=== PATIENT | female | born 1945 | race Caucasian/White ===

== ENCOUNTER 2023-03-14 09:33 | Emergency (ER) | payer MEDICARE, BC, SELFPAY ==
--- NOTE | 2023-03-14 09:48 | ED.GENADULT ---
HPI - General Adult General Time Seen by Provider: 09:48 Date Seen: 03/14/23 Chief complaint: Extremity Pain/Injury, Lower Stated complaint: left leg pain Time Seen by Provider: 03/14/23 09:35 History of Present Illness HPI narrative: This is a pleasant 77-year-old female who is accompanied to the ER today by her daughter. Patient does have some dementia so her daughter supplements a lot of her history. Patient has a history of dementia and depression. She is on medications for those but has no other medical conditions. She does not take any blood thinners or blood pressure medications or cholesterol meds. She does know that she has osteoarthritis. She has been following with her primary care doctor and orthopedist for knee pain. She had x-rays recently that showed, ?[id number]? in her knee. She has been told she is not a candidate for knee replacement. She has an appointment with her doctor in 4 days, on Thursday to have a cortisone injection into her left knee because it has been hurting her recently. Since yesterday her left knee has been hurting more than normal. It has been hurting her to walk on it. It is not clear why her knee has gotten worse. No trauma. No new activity. No twisting. No fall. The knee is not swollen. No redness. No fever or chills. No pain proximally in the femur, quadriceps, hamstrings, or thigh. No pain distally in the tibia, sheridan, gastrocnemius, or calf. Ankle and foot are normal. She has not noticed any discoloration or pallor or her leg. She has no history of DVT or PE. She has not been taking any medications for her knee pain. And not understanding why her knee got worse, her daughter brought her to the ER this morning just to get her looked at to make sure it was not something bad like a blood clot. No suspicion for fracture or fall. Related Data Allergies Allergy/AdvReac Type Severity Reaction Status Date / Time No Known Drug Allergies Allergy Verified 03/14/23 09:54 Exam Narrative: Exam Narrative: Constitutional: Appears well-developed and well-nourished. Alert. Conversant. Non toxic. HENT: Head: Atraumatic. Nose: Nose normal. Mouth/Throat: Oral mucosa is clear and moist. no trismus. Pharynx normal. Tonsils symmetric. No tonsillar enlargement, erythema, or exudate. Eyes: Conjunctivae normal. EOM normal. Pupils equal, round, and reactive to light. No scleral icterus. Neck: Normal range of motion. Neck supple. No tracheal deviation present. Cardiovascular: Normal rate, regular rhythm. Symmetric DP and PT artery pulses . Normal brisk distal capillary refill. Feet are pink. No signs of limb ischemia. Pulmonary/Chest: Effort normal. No stridor. No respiratory distress. Musculoskeletal: RUE: Normal range of motion. No tenderness. No deformity LUE: Normal range of motion. No tenderness. No deformity RLE: Normal range of motion. No edema. No tenderness. No deformity LLE: In her hip. Hip nontender. Pelvis stable. Femur nontender. Quadriceps nontender. Normal muscle mass. Hamstring and posterior thigh nontender. Normal mass. Knee: She does not have any appreciable knee joint effusion. No redness or warmth. She is mildly tender over the medial and lateral joint line. Patella nontender. No bony crepitus or deformity. Range of motion is from full extension to about 45? of flexion, limited by pain. Ligamentous exam is negative for laxity of the ACL, PCL, MCL, LCL. No locking or clicking within her range of motion. No tenderness over the proximal fibula, proximal tibia. Tibial spine and sheridan nontender. Gastrocnemius and calf and Achilles are nontender. No swelling or edema. No bruising. Normal range of motion her ankle. Ankle and foot are nontender. Neurological: Alert and oriented to person, place, and time. She is a poor historian, which is her baseline for dementia. Normal strength. CN II-VII intact. No sensory deficit. GCS eye subscore is 4. GCS verbal subscore is 5. GCS motor subscore is 6. Normal coordination Skin: Skin is warm and dry. No rash noted. No pallor. Normal capillary refill. Psychiatric: Normal mood. Normal affect. Const: Vital Signs, click to edit/add: Vital Signs - 24 hr 03/14/23 09:54 Temperature 97.5 F L Pulse Rate [Pulse Oximeter] 97 Respiratory Rate 18 Blood Pressure [Ri ght Upper Arm] 131/68 Pulse Oximetry 98 Oxygen Delivery Me thod Room Air Course Vital Signs Vital signs: Initial Vital Signs Temperature 97.5 F L 03/14/23 09:54 Temperature Source Temporal Artery Scan 03/14/23 09:54 Pulse Rate 97 03/14/23 09:54 Respiratory Rate 18 03/14/23 09:54 Blood Pressure 131/68 03/14/23 09:54 Blood Pressure Mean 89 03/14/23 09:54 Pulse Oximetry 98 03/14/23 09:54 Oxygen Delivery Method Room Air 03/14/23 09:54 Vital Signs Temperature 97.5 F L 03/14/23 09:54 Pulse Rate 97 03/14/23 09:54 Respiratory Rate 18 03/14/23 09:54 Blood Pressure 131/68 03/14/23 09:54 Pulse Oximetry 98 03/14/23 09:54 Oxygen Delivery Method Room Air 03/14/23 09:54 Temperature 97.5 F L 03/14/23 09:54 Pulse Rate 97 03/14/23 09:54 Respiratory Rate 18 03/14/23 09:54 Blood Pressure 131/68 03/14/23 09:54 Pulse Oximetry 98 03/14/23 09:54 Oxygen Delivery Method Room Air 03/14/23 09:54 Medical Decision Making MDM Narrative Medical decision making narrative: This is a pleasant 77-year-old female presenting to the ER today for left knee pain. She has had known left knee pain for some time and x-rays have shown, ?bone on bone? which presumably meet osteoarthritis. She is not a candidate for knee replacement. She is actually going to be having a cortisone injection into her left knee in a couple of days. However her left kneecap pain became worse than normal yesterday so she is here in the ER this morning. Daughter was concerned about possible blood clot. There is no exam evidence for any swelling or ecchymosis to suggest DVT. She really has pain isolated only to her knee, not to the calf or ankle or thigh. I do not think clinically that there is a DVT. I feel that ultrasound is on necessary in this case. Differential is broad. Consider acute limb ischemia as a cause for her abrupt change in symptoms. However she has strong pulses normal cap refill and no signs of any vascular compromise. No radicular pattern to her pain to suggest low back problem. No recent trauma or fall or twisting to suggest the presence of a new acute fracture. She recently had x-rays that showed arthritis but no fracture. We discussed possibly getting repeat x-rays, but we decided to hold off given the very low likelihood of any acute change or acute fracture. There is no evidence for any ligamentous laxity. No redness or warmth of the knee joint to suggest septic arthritis. There is really no effusion at all to suggest other forms of arthritis such as gout. There is no effusion that would be amenable to arthrocentesis to relieve pain. We are not able to perform cortisone injections to the knee here in the ER. She will follow up with her doctor on Thursday to get that completed. She has not been taking anything for pain control at home In terms of managing the pain acutely until she can follow-up we discussed options. We used shared decision making. Plan of care will be to use Tylenol 1000 mg 3 times daily and supplement with ibuprofen 600 mg q.6 hours p.r.n.. Discussed the risks of ibuprofen use including renal insufficiency and peptic ulcer disease. We will hold off on opiate pain killers for now due to the risk of side effects such as drowsiness, falls, delirium. Discharge Plan Discharge Clinical Impression: Acute pain of left knee Patient Disposition: Home, Self-Care Condition: Stable Instructions: Knee Pain (ED), Arthralgia (ED) Additional Instructions: As we discussed, please come back to the ER right away if you have any concerns-especially if she has worsening pain, increasing swelling, redness or warmth of the knee, fever, or spreading pain throughout her leg. To manage her pain, use Tylenol 1000 mg 3 times daily as needed. For pain uncontrolled by Tylenol, add ibuprofen 600 mg every 6 hours as needed. Please follow-up with her doctors on Thursday for recheck and steroid injection. Follow Up/Referrals: Shaina Perry MD [Primary Care Provider] - Stand Alone Forms: [facility] Info Instructions
[2023-03-14 09:54] VITALS: BP 131/68; PULSE 97; RESP 18; TEMP 36.4; O2SAT 98; BMI 21.5
== END 2023-03-14 10:37 | disposition home or self-care (01) ==
PROVIDERS: Emergency Provider Emergency Medicine; PCP Family Medicine
DX: M25.562 Pain in left knee (principal)
CPT/HCPCS: 99283

== ENCOUNTER 2023-07-20 20:06 | Observation (INO) | payer MEDICARE, BC, SELFPAY ==
[2023-07-20] VITALS (7 sets, daily range): BP systolic 172–189; BP diastolic 104–111; PULSE 89–98; RESP 18–20; TEMP 36.6; O2SAT 97–98
--- NOTE | 2023-07-20 21:03 | ED_ITS ---
HPI - Weakness General Time Seen by Provider: 21:03 Date Seen: 07/20/23 Chief complaint: Weakness Stated complaint: weak Time Seen by Provider: 07/20/23 21:03 Source: patient, RN notes reviewed and old records reviewed Mode of arrival: ambulatory Limitations: no limitations History of Present Illness HPI Narrative: 78-year-old female who comes in today with feeling like she is going to fall over. This started this afternoon. She denies headache, double vision, numbness or tingling the arms legs, weakness. She says when she stands up she just feels off balance. She does not use any assistive device to ambulate. She denies any fall or head injury. Denies any recent medication changes. No cough, runny nose, fever, chills, abdominal pain. No neck pain or back pain. Denies urinary symptoms. Related Data Home Medications Medication Instructions Recorded Confirmed amoxapine 150 mg tablet 150 mg PO QPM 07/20/23 07/20/23 bupropion HCl 100 mg tablet,12 hr 100 mg PO BID 07/20/23 07/20/23 sustained-release cholecalciferol (vitamin D3) 25 25 mcg PO DAILY 07/20/23 07/20/23 mcg (1,000 unit) tablet dextromethorphan HBr 15 mg capsule 45 mg PO BID 07/20/23 07/20/23 mirtazapine 15 mg tablet 7.5 mg PO QPM PRN insomnia 07/20/23 07/20/23 rivastigmine tartrate 3 mg capsule 3 mg PO BID 07/20/23 07/20/23 Allergies Allergy/AdvReac Type Severity Reaction Status Date / Time No Known Drug Allergies Allergy Verified 03/14/23 09:54 PFSH PFS Social History Smoking Status: Unknown if ever smoked Exam Narrative: Exam Narrative: General: Well-developed and well-nourished, no acute distress Head: Atraumatic and normocephalic Eyes: Pupils are equal reactive, extraocular motions intact, conjunctiva clear ENT: External nose and ears are normal, posterior pharynx without erythema or exudate Neck: No midline cervical tenderness, full spontaneous range of motion the neck, trachea midline, no adenopathy Heart: Regular rate and rhythm no murmurs or thrills Lungs: Clear to auscultation bilaterally without wheezes or crackles Abdomen: Soft, nontender, nondistended with active bowel sounds Musculoskeletal: No tenderness, deformity, or edema Neurologic: Awake, alert, and oriented x3, no gross focal neurologic deficits, cranial nerves intact as tested. When it standing at the bedside, patient stands stable with no swaying but says she feels like she is going to fall over Psych: Mood and affect are appropriate Skin: No rashes Const: Vital Signs, click to edit/add: Vital Signs - 24 hr 07/20/23 20:38 07/20/23 21:53 07/20/23 21:54 Temperature 98 F Pulse Rate 94 92 Pulse Rate [Pulse Oximeter] 98 Respiratory Rate 20 Blood Pressure 183/104 H Blood Pressure [Le ft Upper Arm] 172/111 H Pulse Oximetry 98 97 97 Oxygen Delivery Me thod Room Air Room Air 07/20/23 21:55 07/20/23 22:00 07/20/23 22:01 Temperature Pulse Rate 94 89 92 Pulse Rate [Pulse Oximeter] Respiratory Rate Blood Pressure 185/104 H Blood Pressure [Le ft Upper Arm] Pulse Oximetry 97 98 98 Oxygen Delivery In thod Course Course ED Course: Patient seen and examined, prior records are reviewed. Patient presents today with feeling off balance this afternoon. On exam she has no focal neurologic deficits, no decreased sensation of the upper lower extremities, no facial droop or facial asymmetry. Standing at the side of the bed she appears steady but says she feels off balance, did not ambulate the patient due to this sensation of disequilibrium. Labs are ordered along with CTA of the head neck although large vessel occlusion is clinically unlikely. Reevaluation(s) Time of Reevaluation #1: 22:21 Reevaluation #1: Labs ordered and independently interpreted by me with normal basic metabolic panel, negative troponin, normal magnesium. Urinalysis and CT scans are pending. Time of Reevaluation #2: 22:56 Reevaluation #2: Chest x-ray and panel interpreted by me with mild cardiomegaly but no acute infiltrate or effusion. CTA of the head neck shows moderate narrowing at the right P2 P3 [employer] junction, no acute findings otherwise. Time of Reevaluation #3: 23:24 Reevaluation #3: Urinalysis independently interpreted by me consistent with infection, although contaminated with moderate squamous cells. No prior culture to guide therapy, Rocephin IV is ordered. This may be contributing to patient's feeling of being off balance, however with narrowing of the P2 and P3 segments on CT as well as disequilibrium, concern for possible TA or acute CVA as well. Discussed disposition with the patient. At this point, patient may have a small stroke that will need further evaluation treatment, possibly related to narrowing of the P2 P3, and need to undergo MRI in the morning. This could conceivably done as an outpatient as well, however patient feels too off-balance to go home tonight and so will be admitted. Care was discussed with tele hospitalist service, recommends against Rocephin for now is urine is quite contaminated. Patient will given aspirin in the emergency department for possible acute CVA. 11:43 p.m. Rocephin IV already given for urinary tract infection Vital Signs Vital signs: Initial Vital Signs Temperature 98 F 07/20/23 20:38 Temperature Source Temporal Artery Scan 07/20/23 20:38 Pulse Rate 98 07/20/23 20:38 Respiratory Rate 20 07/20/23 20:38 Blood Pressure 172/111 H 07/20/23 20:38 Blood Pressure Mean 131 H 07/20/23 20:38 Blood Pressure Position Sitting 07/20/23 20:38 Pulse Oximetry 98 07/20/23 20:38 Oxygen Delivery Method Room Air 07/20/23 20:38 Vital Signs Temperature 98 F 07/20/23 20:38 Pulse Rate 98 07/20/23 20:38 Respiratory Rate 20 07/20/23 20:38 Blood Pressure 172/111 H 07/20/23 20:38 Pulse Oximetry 98 07/20/23 20:38 Oxygen Delivery Method Room Air 07/20/23 20:38 Temperature 98 F 07/20/23 20:38 Pulse Rate 92 07/20/23 22:01 Respiratory Rate 20 07/20/23 20:38 Blood Pressure 185/104 H 07/20/23 22:01 Pulse Oximetry 98 07/20/23 22:01 Oxygen Delivery Method Room Air 07/20/23 21:53 Medications Administered Medications: Discontinued Medications Generic Name Dose Route Start Last Admin Trade Name Freq PRN Reason Stop Dose Admin Ceftriaxone Sodium 1 gm/ 100 mls @ 200 mls/hr 07/20/23 23:28 07/20/23 23:32 Sodium Chloride IVPB 07/20/23 23:29 200 mls/hr ONCE ONE Administration MDM - Weakness Lab Data Labs: Lab Results 07/20/23 07/20/23 Range/Units 21:25 23:00 WBC 6.14 (4.50-11.00) K/uL RBC 4.62 (4.00-5.20) m/uL Hgb 14.3 (12.0-16.0) gm/dL Hct 44.0 (33.0-51.0) % MCV 95 (80-100) fL MCH 31 (26-34) pg MCHC 33 (32-36) gm/dL RDW Coeff of Anu 12.3 (11.5-15.5) % Plt Count 272 (140-440) K/uL Neut % (Auto) 67.8 (42.0-72.0) % Lymph % (Auto) 20.4 (20-44) % [place] % (Auto) 9.3 (0.0-11.0) % Eos % (Auto) 1.1 (0.0-7.0) % Baso % (Auto) 0.7 (0.0-3.0) % Neut # (Auto) 4.17 (1.7-7.0) K/uL Lymph # (Auto) 1.25 (0.90-2.90) K/uL [place] # (Auto) 0.60 (0.00-0.90) K/UL Eos # (Auto) 0.07 (0.00-0.50) K/uL Baso # (Auto) 0.04 (0.00-0.30) K/uL Abs Immat Gran (auto) 0.04 (0.00-0.30) K/uL Imm/Tot Granulo (auto) 0.7 % Sodium 138 (135-149) mmol/L Potassium 4.1 (3.6-5.1) mmol/L Chloride 105 (96-114) mmol/L Carbon Dioxide 29 (20-32) mmol/L Anion Gap 4 L (7-15) mEq/L BUN 31 H (7-30) mg/dL Creatinine 0.7 (0.5-1.5) mg/dL Estimated GFR 87 ml/min Glucose 128 H (60-115) mg/dL Calcium 9.8 (8.4-10.6) mg/dL Magnesium 2.0 (1.5-2.6) mg/dL NT-Pro-B Natriuret Pep 181 pg/mL Urine Color Yellow (Yellow) Urine Appearance Clear (Clear) Urine pH 7.5 (5.0-8.5) Ur Specific [place] 1.015 (1.000-1.030) Urine Protein Negative (Negative) Urine Glucose (UA) Negative (Negative) Urine Ketones Negative (Negative) Urine Blood Trace-intact A (Negative) Urine Nitrite Negative (Negative) Urine Bilirubin Negative (Negative) Urine Urobilinogen 0.2 (0.2-1.0) Ur Leukocyte Esterase 2+ A (Negative) Urine RBC 0-2 (0-2) Urine WBC 10-25 A (0-5) Ur Squamous Epith Cells Moderate A (None-Few) Urine Bacteria Moderate A (None) Lab Acknowledgement Test Added POC Troponin I 0.00 L (0.01-0.04) ng/ml ECG Data Attestation: I personally reviewed and interpreted this ECG as follows: ECG interpretation date: 07/20/23 ECG interpretation time: 21:33 Prior ECG tracings: not available for review Interpretation: Normal sinus rhythm rate 94, incomplete right bundle-branch block, IN 190, QTC 42, normal axis, no prior for comparison. Discharge Plan Discharge Clinical Impression: Dysequilibrium, Acute urinary tract infection, Stroke-like symptom Patient Disposition: Admitted As Observation Activity Level: Up with assist
--- NOTE | 2023-07-20 21:18 | XR_ITS ---
Final Report Patient: JULIA CHAKRABORTY Facility:?[facility] Patient ID:?[id number] Site Patient ID:?[id number] Site :?1945 Study:?XRay Chest 2 VIEW-07/20/2023 10:38:26 PM Ordering Physician:ROBERTO Final Report: Indication: Weakness Technique: Two views of the chest Comparison: None Findings/Impression: Mild prominence of central and peripheral vascular markings and mild cardiomegaly, may represent a high-volume state. No other acute cardiopulmonary process detected. Dictated by Vitaly Samson MD @ 07/20/2023 10:42:03 PM (Electronic Signature)
--- NOTE | 2023-07-20 21:18 | CT_ITS ---
Final Report Patient: JULIA CHAKRABORTY Facility:?[facility] Patient ID:?[id number] Site Patient ID:?[id number]. Site :?1945 Study:?CT Head Angio CTA HEAD W/ISOVUE 370 95CC-07/20/2023 10:38:19 PM Ordering Physician:ROBERTO Final Report: INDICATION: Acute stroke, dysequilibrium. TECHNIQUE: CTA head with contrast bolus tracking, 3D angiographic rendering using maximum intensity projection (MIP) and images permanently archived. FINDINGS: There is scattered intracranial atherosclerotic disease. There is normal opacification of the intracranial vasculature. There is no large vessel occlusion. No aneurysm is identified. IMPRESSION: No large vessel occlusion. Please note that all CT scans at this facility use dose modulation, iterative reconstruction, and/or weight-based dosing when appropriate to reduce radiation dose to as low as reasonably achievable. Dictated by Sid Lopez MD @ 07/21/2023 11:31:53 AM (Electronic Signature)
--- NOTE | 2023-07-20 21:18 | CT_ITS ---
Final Report Patient: JULIA CHAKRABORTY Facility:?[facility] Patient ID:?[id number] Site Patient ID:?[id number]. Site :?1945 Study:?CT Neck Angio CTA NECK W/ISOVUE 370 95CC-07/20/2023 10:38:49 PM Ordering Physician:ROBERTO Final Report: INDICATION: Acute stroke, dysequilibrium. TECHNIQUE: CTA neck with contrast bolus tracking, 3D angiographic rendering using maximum intensity projection (MIP) and images permanently archived. FINDINGS: There is minor carotid atherosclerosis. There is no significant carotid artery stenosis or dissection. There is no significant vertebral artery stenosis or dissection. The soft tissues of the neck are within normal limits. Advanced degenerative changes are noted in the cervical spine. IMPRESSION: No significant carotid or vertebral artery stenosis or dissection. Please note that all CT scans at this facility use dose modulation, iterative reconstruction, and/or weight-based dosing when appropriate to reduce radiation dose to as low as reasonably achievable. Dictated by Sid Lopez MD @ 07/21/2023 11:33:37 AM (Electronic Signature)
[2023-07-20 22:00] LABS: Chloride* 105 mmol/L (96-114)
[2023-07-20 22:01] LABS: Potassium* 4.1 mmol/L (3.6-5.1); Sodium* 138 mmol/L (135-149)
[2023-07-20 22:03] LABS: Creatinine* 0.7 mg/dL (0.5-1.5); Estimated Glomerular Filt Rate 87 ml/min
[2023-07-20 22:04] LABS: Anion Gap 4 mEq/L (7-15); Blood Urea Nitrogen* 31 mg/dL (7-30); Calcium* 9.8 mg/dL (8.4-10.6); Carbon Dioxide* 29 mmol/L (20-32); Glucose* 128 mg/dL (60-115)
[2023-07-20 22:55] LABS: Basophils Absolute Auto 0.04 K/uL (0.00-0.30); Basophils Percent Auto 0.7 % (0.0-3.0); Eosinophils Absolute Auto 0.07 K/uL (0.00-0.50); Eosinophils Percent Auto 1.1 % (0.0-7.0); Hemoglobin* 14.3 gm/dL (12.0-16.0); Immature Granulocytes Abs Auto 0.04 K/uL (0.00-0.30); Immature Granulocytes Pct Auto 0.7 %; Lymphocytes Absolute Auto 1.25 K/uL (0.90-2.90); Lymphocytes Percent Auto 20.4 % (20-44); Mean Corpuscular HGB Conc 33 gm/dL (32-36); Mean Corpuscular Hemoglobin 31 pg (26-34); Mean Corpuscular Volume 95 fL (80-100); Monocytes Percent Auto 9.3 % (0.0-11.0); Neutrophils Absolute Auto 4.17 K/uL (1.7-7.0); Neutrophils Percent Auto 67.8 % (42.0-72.0); Platelet Count* 272 K/uL (140-440); RDW Coefficient of Variation % 12.3 % (11.5-15.5); Red Blood Count 4.62 m/uL (4.00-5.20); Slide Review Reflex No; White Blood Count* 6.14 K/uL (4.50-11.00)
[2023-07-20 23:10] LABS: Appearance Urine Clear (Clear); Bilirubin Urine Negative (Negative); Blood Urine Trace-intact (Negative); Color Urine Yellow (Yellow); Glucose Urine Negative (Negative); Ketones Urine Negative (Negative); Leukocyte Esterase Urine 2+ (Negative); Nitrite Urine Negative (Negative); Protein Urine Negative (Negative); Specific Gravity Urine 1.015 (1.000-1.030); Urobilinogen Urine 0.2 (0.2-1.0); pH Urine 7.5 (5.0-8.5)
[2023-07-20 23:11] LABS: NT Pro B Type NatriureticPept* 181 pg/mL
[2023-07-20 23:22] LABS: Bacteria Urine Moderate; RBC Urine 0-2 (0-2); Squamous Epithelial Cell Urine Moderate (None-Few)
[2023-07-20] MEDS: cefTRIAXone 1 GM in 0.9 % SODIUM CHLORIDE Mini-bag 100 ML IVPB (23:32)
[2023-07-20] MEDS: ASPIRIN 81 MG TAB.CHEW 324 MG PO (23:47)
[2023-07-21] VITALS (10 sets, daily range): BP systolic 149–191; BP diastolic 85–112; PULSE 64–112; RESP 18; TEMP 36.2–37.3; O2SAT 96–99
--- NOTE | 2023-07-21 02:09 | W.PM.TELEH&P ---
Telehealth- H&P: HPI History of Present Illness Date Seen: 07/21/23 Chief complaint: weak Narrative: Tameka Scott is seen as an Interactive Telehealth visit. Tameka Scott is a 78 year old female who is seen in her hospital room at [facility]. She is seen with the assistance of nursing staff. She has been admitted through the emergency room. Her daughter is present during the interview and exam. She tells me yesterday today she felt okay. She got up this morning. She was up for a bit and had a sudden onset of dizziness when she would get up and try to ambulate. She felt like she was going to fall over. She denied headache double vision numbness tingling weakness in an arm. Otherwise she denied headache fever chills chest pain shortness of breath abdominal pain blood in the urine blood in the stool. She denies any urinary symptoms no frequency urgency. She was evaluated in the emergency room was found to have a difficult time ambulating. CT scan of the head was performed which did not show any acute findings but possible narrowing at P2 and P3 segments. Patient did not feel comfortable going home with her increasing dizziness while sitting or standing upright. She has now been admitted for further evaluation and treatment. While she is laying in bed she feels fine. She does become dizzy when she sits upright in bed. There are again no urinary symptoms. Review of Systems Narrative: A complete review of systems was performed positive pertinent and negatives in the history of present illness. [facility] Medical History (Updated 07/21/23 @ 02:27 by Yonis Harvey DO) Dementia ?F03.90 - Unspecified dementia, unspecified severity, without behavioral disturbance, psychotic disturbance, mood disturbance, and anxiety (ICD-10) Depression ?F32.A - Depression, unspecified (ICD-10) Anxiety ?F41.9 - Anxiety disorder, unspecified (ICD-10) Surgical History (Updated 07/21/23 @ 02:08 by Yonis Harvey DO) H/O sinus surgery ?Z98.890 - Other specified postprocedural states (ICD-10) History of tonsillectomy ?Z90.89 - Acquired absence of other organs (ICD-10) Social History Smoking Status: Unknown if ever smoked Meds Home Medications and Allergies Home Medications Medication Instructions Recorded Confirmed Type amoxapine 150 mg tablet 150 mg PO QPM 07/20/23 07/20/23 History bupropion HCl 100 mg tablet,12 hr 100 mg PO BID 07/20/23 07/20/23 History sustained-release cholecalciferol (vitamin D3) 25 25 mcg PO DAILY 07/20/23 07/20/23 History mcg (1,000 unit) tablet dextromethorphan HBr 15 mg capsule 45 mg PO BID 07/20/23 07/20/23 History mirtazapine 15 mg tablet 7.5 mg PO QPM PRN insomnia 07/20/23 07/20/23 History rivastigmine tartrate 3 mg capsule 3 mg PO BID 07/20/23 07/20/23 History Allergies Allergy/AdvReac Type Severity Reaction Status Date / Time No Known Drug Allergies Allergy Verified 03/14/23 09:54 Exam Narrative Exam Narrative: Physical Exam GENERAL: ?vital signs reviewed, well developed and nourished, in no distress HEENT: pupils are equal round and reactive to light, extraocular movements are grossly within normal limits and oral mucosa is moist. NECK: Supple without lymphadenopathy or thyromegaly according to nursing staff examination observation HEART: Regular rate and rhythm without any rubs, murmurs, or gallops. LUNGS: Clear to auscultation bilaterally with good air movement throughout ABDOMEN: Observation from nurse assisted exam, abdomen appears soft, nontender, and nondistended with Positive bowel sounds noted. EXTREMITIES: Strength and sensation is observed to be grossly within normal limits in the upper and lower extremities.? No focal strength deficit is observed. SKIN:? Observed warm and dry with color normal Const Vital Signs, click to edit/add: Vital Signs - 24 hr 07/20/23 20:38 07/20/23 21:53 07/20/23 21:54 Temperature 98 F Pulse Rate 94 92 Pulse Rate [Pulse Oximeter] 98 Respiratory Rate 20 Blood Pressure 183/104 H Blood Pressure [Left Upper Arm] 172/111 H Pulse Oximetry 98 97 97 Oxygen Delivery Method Room Air Room Air 07/20/23 21:55 07/20/23 22:00 07/20/23 22:01 Temperature Pulse Rate 94 89 92 Pulse Rate [Pulse Oximeter] Respiratory Rate Blood Pressure 185/104 H Blood Pressure [Left Upper Arm] Pulse Oximetry 97 98 98 Oxygen Delivery Method 07/20/23 23:32 Temperature Pulse Rate 93 Pulse Rate [Pulse Oximeter] Respiratory Rate 18 Blood Pressure 189/108 H Blood Pressure [Left Upper Arm] Pulse Oximetry 98 Oxygen Delivery Method Hospitalist - H&P: Result Labs Labs: Short CBC 07/20/23 Range/Units 21:25 WBC 6.14 (4.50-11.00) K/uL Hgb 14.3 (12.0-16.0) gm/dL Hct 44.0 (33.0-51.0) % Plt Count 272 (140-440) K/uL BMP 07/20/23 21:25 Sodium 138 Potassium 4.1 Chloride 105 Carbon Dioxide 29 BUN 31 H Creatinine 0.7 Glucose 128 H Calcium 9.8 Urine 07/20/23 Range/Units 23:00 Urine Color Yellow (Yellow) Urine Appearance Clear (Clear) Urine pH 7.5 (5.0-8.5) Ur Specific [place] 1.015 (1.000-1.030) Urine Protein Negative (Negative) Urine Glucose (UA) Negative (Negative) ECG Interpretation: Twelve-lead EKG shows normal sinus rhythm 94 bpm no blocks no ST elevations or depressions normal axis no acute findings. Assessment and Plan Assessment and plan (1) Stroke-like symptom: Status: Acute (2) Dysequilibrium: Status: Acute (3) HTN (hypertension): Status: Acute (4) Acute urinary tract infection: Status: Acute (5) Implantable loop recorder present: Status: Acute (6) Dementia: Status: Acute (7) Depression: Status: Acute Plan disequilibrium strokelike symptoms?suspect BPPV as patient is fine lying flat gets worse sitting upright. She does seem to have some left beating nystagmus very difficult to tell overall. Certainly could be a posterior CVA for tonight we will keep her on aspirin. Will plan for an MRI in the morning if her loop recorder is able to go through an MRI machine. This will need to be reviewed. Will have her see physical therapy. Otherwise ongoing secondary prevention she can follow-up with her abnormal CT scan as an outpatient. Hypertension?patient with fairly elevated blood pressures. Will use permissive hypertension with a systolic less than 105 will continue to observe. In case this is an acute CVA. If her blood pressure is remains elevated consider IV hydralazine. Patient with an initial urine which looks potentially infected her symptoms are not really consistent with a urinary tract infection and it is a markedly contaminated specimen with squamous epithelial cells. Between her being completely asymptomatic we will repeat a UA. But at this point I do not feel inclined to treat. Implantable loop recorder present on. Will need to see if MRI compatible. Dementia, depression, anxiety?patient's home medications will need to be reviewed. I did look at them this evening I do not think there is a need to that need to be continued will wait for pharmacy to reconcile in the morning. DVT prophylaxis will use subcutaneous Lovenox. CODE STATUS was reviewed on admission patient wishes to be a full code. Yonis Harvey DO, Pharm. D. Telehealth: Statement Statement Telehealth Visit: Today's History and Physical is provided via interactive telehealth by Yonis Harvey DO.? Patient is located at [facility].? Provider is located at [facility].? Nursing staff assisted with the patient's exam. The visit being done today meets criteria for a telehealth visit and the patient or patient?s parent/guardian is aware the visit is a telehealth visit. Camera Start Time: 01:31 Camera End Time: 02:00
--- NOTE | 2023-07-21 07:25 | PC.NURSE ---
Pt alert and oriented x3. Afebrile. Pt denies pain, chest pain, and N/V. Pt reports feeling dizzy with movement and a little at rest. Pt had high blood pressures MD Harvey aware. Pt is up SBA with walker and gait belt to bathroom. Pt slept intermittently throughout night.
[2023-07-21] MEDS: ENOXAPARIN 40 MG/0.4 ML INJ SUBCUT (09:27)
[2023-07-21] MEDS: ASPIRIN EC 325 MG TABLET PO (09:27)
[2023-07-21] MEDS: SODIUM CHLORIDE 0.9 % (FLUSH) 10 ML SYRINGE 5 ML IVF ×2 (10:00→20:04)
--- NOTE | 2023-07-21 11:15 | MR_ITS ---
Patient: JULIA CHAKRABORTY Facility:?[facility] R[facility] Patient ID:?[id number] Site Patient ID:?[id number]. Site :?[id number] Study:?MRI-Head WO-07/21/2023 11:19:11 AM Ordering Physician:MARGARITO Final Report: Indication: Posterior stroke symptoms Technique: Multiplanar, multisequence MR images of the brain were obtained without the administration of IV contrast. Comparison: None available. Findings: On midline sagittal T1 images there are preserved flow voids within the sagittal sinuses. The corpus callosum is preserved in signal and contour. The pituitary gland is unremarkable without evidence of remodeling of the sella turcica. There is no significant cerebellar tonsillar ectopia. On diffusion-weighted sequences, there is no evidence of acute or subacute infarct. On blood sensitive sequences, there is no evidence of or chronic hemorrhage. There is mild global cortical atrophy with sulcal widening and minimal ex vacuo dilatation of the lateral ventricles. There is minimal chronic small vessel disease change within the subcortical and periventricular white matter. Otherwise, the brain parenchyma is preserved in signal intensity. The flow voids at the skull base are unremarkable. The orbits and their contents are within normal limits. The paranasal sinuses are clear. There is minimal fluid in the wyayv-uiflynu-smqy-left mastoid air cells. Impression: Age-related and chronic small-vessel disease changes of the brain without acute intracranial abnormality. Dictated by Lester Martinez MD @ 07/21/2023 11:30:38 AM Signed by:?Lester Martinez MD @07/21/2023 11:30:38 AM (Electronic Signature)
--- NOTE | 2023-07-21 11:55 | PM.IMPN1 ---
Progress Note: A&P Assessment and plan (1) Stroke-like symptom: Problem details: - primarily dizziness with movement - MRI on 07/20 reassuring, CTA of head and neck on 07/19 also reassuring - symptoms potentially iatrogenic (last new medication was Amoxapine, initiated approximately one month ago), orthostatic hypotension, anxiety - also has mild anorexia and elevated BUN, no melena or anemia, no GERD. Will add PPI to medication regimen, follow Hgb and lytes - therapies following, will evaluate TTE and Orthostatic VS Status: Acute (2) Dysequilibrium: Problem details: - no concern of BPPV per PT evaluation 07/20 - continue PT and OT services to evaluate patient's mobility and symptomatology - hold Amoxapine, continue rest of her home medications Status: Acute (3) HTN (hypertension): Problem details: - no CVA on MRI - possible medication effect (Amoxapine) vs progression of essential HTN - follow orthostatic numbers, add low dose Amlodipine, continue telemetry Status: Acute (4) Acute urinary tract infection: Problem details: - currently NGTD on urine culture, on empiric Ceftriaxone Status: Acute (5) Implantable loop recorder present: Status: Acute (6) Depression: Problem details: - follows with Dr. Bethea at [facility] Status: Acute Plan - per above - daughter Aida updated at bedside, questions answered - called and left message for Dr. Bethea of Psych as well Subjective Date Seen: 07/21/23 Interval history: Tameka was admitted to the hospital last night for dizziness. She describes it as a feeling of being off balance, only noted with ambulating. No syncope, no chest pain. Decreased appetite but no true nausea or gastritis symptoms. CTA of head and neck ER reassuring, MRI obtained this morning also reassuring. Patient was evaluated by PT this morning who did not believe symptoms are union representative of BPPV. On further review of patient's history with patient and daughter, her most recent medication change was the increase in the dose of Amoxapine about one month ago (from 100 -->150mg). She saw her Psychiatrist (Dr. Bethea) yesterday, who decreased her Amoxapine back down to 100 mg. Exam Narrative: Exam Narrative: GEN: Alert and sitting comfortably in bedside chair, answering questions appropriately HEENT: Normal external ears, EOMIs bilaterally, no scleral icterus CV: RRR, No concerning murmurs R: LCTA bilaterally without concerning wheezing, air movement adequate Ext: wwp, no concerning edema Skin: No concerning skin lesions or rashes on exposed skin Neuro: Mild L sided facial droop (not new, per daughter), normal and symmetric electronic scale subassembler strength bilaterally Psych: Normal affect Const: Vital Signs, click to edit/add: Vital Signs - 24 hr 07/20/23 20:38 07/20/23 21:53 07/20/23 21:54 Temperature 98 F Pulse Rate 94 92 Pulse Rate [Pulse Oximeter] 98 Respiratory Rate 20 Blood Pressure 183/104 H Blood Pressure [Le ft Arm] Blood Pressure [Le ft Upper Arm] 172/111 H Pulse Oximetry 98 97 97 [facility] Room Air 07/20/23 21:55 07/20/23 22:00 07/20/23 22:01 Temperature Pulse Rate 94 89 92 Pulse Rate [Pulse Oximeter] Respiratory Rate Blood Pressure 185/104 H Blood Pressure [Le ft Arm] Blood Pressure [Le ft Upper Arm] Pulse Oximetry 97 98 98 Oxygen Delivery Me thod 07/20/23 23:32 07/21/23 00:10 07/21/23 00:10 Temperature 98.2 F Pulse Rate 93 Pulse Rate [Pulse Oximeter] Respiratory Rate 18 18 18 Blood Pressure 189/108 H Blood Pressure [Le ft Arm] 191/112 H Blood Pressure [Le ft Upper Arm] Pulse Oximetry 98 98 98 Oxygen Delivery [facility] Room Air Room Air 07/21/23 02:03 07/21/23 04:10 07/21/23 07:34 Temperature 97.9 F Pulse Rate 89 95 Pulse Rate [Pulse Oximeter] Respiratory Rate 18 Blood Pressure Blood Pressure [Le ft Arm] 168/96 H Blood Pressure [Le ft Upper Arm] Pulse Oximetry 96 Oxygen Delivery Ok thod Room Air Labs Labs: Laboratory Results - last 24 hr 07/20/23 07/20/23 21:25 23:00 WBC 6.14 RBC 4.62 Hgb 14.3 Hct 44.0 MCV 95 MCH 31 MCHC 33 RDW Coeff of Anu 12.3 Plt Count 272 Neut % (Auto) 67.8 Lymph % (Auto) 20.4 [place] % (Auto) 9.3 Eos % (Auto) 1.1 Baso % (Auto) 0.7 Neut # (Auto) 4.17 Lymph # (Auto) 1.25 [place] # (Auto) 0.60 Eos # (Auto) 0.07 Baso # (Auto) 0.04 Abs Immat Gran (auto) 0.04 Imm/Tot Granulo (auto) 0.7 Sodium 138 Potassium 4.1 Chloride 105 Carbon Dioxide 29 Anion Gap 4 L BUN 31 H Creatinine 0.7 Estimated GFR 87 Glucose 128 H Calcium 9.8 Magnesium 2.0 NT-Pro-B Natriuret Pep 181 Urine Color Yellow Urine Appearance Clear Urine pH 7.5 Ur Specific [place] 1.015 Urine Protein Negative Urine Glucose (UA) Negative Urine Ketones Negative Urine Blood Trace-intact A Urine Nitrite Negative Urine Bilirubin Negative Urine Urobilinogen 0.2 Ur Leukocyte Esterase 2+ A Urine RBC 0-2 Urine WBC 10-25 A Ur Squamous Epith Cells Moderate A Urine Bacteria Moderate A Lab Acknowledgement Test Added POC Troponin I 0.00 L
[2023-07-21] MEDS: AMLODIPINE 5 MG TABLET PO (14:00)
[2023-07-21] MEDS: OMEPRAZOLE 20 MG CAPSULE DR PO (14:00)
[2023-07-21] MEDS: RIVASTIGMINE TARTRATE 1.5 MG CAPSULE 3 MG PO (20:03)
[2023-07-21] MEDS: buPROPion HCL 100 MG TAB.SR.12H PO (20:04)
[2023-07-22 00:40] VITALS: BP 128/94; PULSE 103; RESP 18; TEMP 36.6; O2SAT 93
[2023-07-22 02:07] VITALS: PULSE 89
[2023-07-22 03:15] VITALS: BP 142/91; PULSE 87; RESP 16; TEMP 36.8; O2SAT 96
[2023-07-22] MEDS: OMEPRAZOLE 20 MG CAPSULE DR PO (06:25)
[2023-07-22 06:43] LABS: Basophils Absolute Auto 0.05 K/uL (0.00-0.30); Basophils Percent Auto 0.9 % (0.0-3.0); Eosinophils Absolute Auto 0.12 K/uL (0.00-0.50); Eosinophils Percent Auto 2.1 % (0.0-7.0); Hematocrit 46.8 % (33.0-51.0); Hemoglobin* 15.2 gm/dL (12.0-16.0); Immature Granulocytes Abs Auto 0.01 K/uL (0.00-0.30); Immature Granulocytes Pct Auto 0.2 %; Lymphocytes Absolute Auto 1.47 K/uL (0.90-2.90); Mean Corpuscular HGB Conc 33 gm/dL (32-36); Mean Corpuscular Hemoglobin 31 pg (26-34); Mean Corpuscular Volume 95 fL (80-100); Monocytes Percent Auto 8.3 % (0.0-11.0); Neutrophils Absolute Auto 3.54 K/uL (1.7-7.0); Neutrophils Percent Auto 62.5 % (42.0-72.0); Platelet Count* 281 K/uL (140-440); RDW Coefficient of Variation % 12.3 % (11.5-15.5); Red Blood Count 4.93 m/uL (4.00-5.20); White Blood Count* 5.66 K/uL (4.50-11.00)
[2023-07-22 07:00] VITALS: PULSE 95
[2023-07-22 07:09] LABS: Chloride* 106 mmol/L (96-114)
[2023-07-22 07:10] LABS: Albumin* 4.2 g/dL (3.3-5.0); Potassium* 3.7 mmol/L (3.6-5.1); Sodium* 137 mmol/L (135-149)
[2023-07-22 07:13] LABS: Alanine Aminotransferase* 18 U/L (4-35); Alkaline Phosphatase* 71 U/L (40-150); Anion Gap 4 mEq/L (7-15); Aspartate Amino Transferase* 27 U/L (12-35); Bilirubin Total* 0.5 mg/dL (0.1-1.5); Blood Urea Nitrogen* 15 mg/dL (7-30); Calcium* 9.8 mg/dL (8.4-10.6); Carbon Dioxide* 27 mmol/L (20-32); Creatinine* 0.6 mg/dL (0.5-1.5); Estimated Glomerular Filt Rate 91 ml/min; Glucose* 104 mg/dL (60-115); Total Protein* 7.4 g/dL (6.0-8.3)
--- NOTE | 2023-07-22 07:22 | PC.NURSE ---
Pt alert and oriented x3. Afebrile. Pt denies pain, chest pain, pain, SOB, and N/V. Pt continues to report feeling dizzy with movement. Pt is up SBA with walker and gait belt. Pt slept throughout most of night. Night uneventful. Tele showing NSR with elevated QTC updated Dr. Corbett and oncoming RN. ?
[2023-07-22 07:32] LABS: Slide Review Reflex No
[2023-07-22 07:45] VITALS: BP 152/102; PULSE 97; RESP 16; TEMP 36.6; O2SAT 99
[2023-07-22] MEDS: ENOXAPARIN 40 MG/0.4 ML INJ SUBCUT (09:04)
[2023-07-22] MEDS: RIVASTIGMINE TARTRATE 1.5 MG CAPSULE 3 MG PO (09:04)
[2023-07-22] MEDS: buPROPion HCL 100 MG TAB.SR.12H PO (09:04)
[2023-07-22] MEDS: SODIUM CHLORIDE 0.9 % (FLUSH) 10 ML SYRINGE 5 ML IVF (09:04)
[2023-07-22] MEDS: AMLODIPINE 5 MG TABLET PO (09:05)
--- NOTE | 2023-07-22 11:24 | P.DS_ITS ---
DS: Providers Provider Date Seen: 07/22/23 Date of admission: 07/21/23 00:10 Primary care physician: Shaina Perry MD Admitting Clinician: Jessica Feldman MD Consults: PT and OT Attending Physician on discharge: Verona Bermudez MD Date of Discharge: 07/22/23 DS: Diagnosis Discharge Diagnosis (1) Stroke-like symptom: Status: Acute Problem details: - primarily dizziness with movement, resolved during stay - MRI on 07/20 reassuring, CTA of head and neck on 07/19 also reassuring - symptoms potentially iatrogenic (elevated BP 2/2 Amoxapine), orthostatic hypotension, anxiety - also has mild anorexia and elevated BUN, no melena or anemia, no GERD. BUN normalized and appetite back to normal on day of discharge - TTE reassuring, normal TSH, lytes and telemetry, cleared by therapies for d/c home (2) Dysequilibrium: Status: Acute Problem details: - no concern of BPPV per PT evaluation 07/20 - continue PT and OT services to evaluate patient's mobility and symptomatology - taper Amoxepine per Psych (3) HTN (hypertension): Status: Acute Problem details: - no CVA on MRI - possible medication effect (Amoxapine) vs progression of essential HTN - no orthostasis, added low dose Amlodipine (07/20) (4) Depression: Status: Acute Problem details: - follows with Dr. Bethea at [facility] - patient aware of hospital stay (5) Acute urinary tract infection: Status: Acute Problem details: - empiric Ceftriaxone initiated, stopped on d/c given no growth on urine culture (6) Implantable loop recorder present: Status: Acute DS: Summary Hospital Course Hospital Course: Tameka is a delightful 78 yo female with a history of depression who presented to the hospital for dizziness, primarily with movement. Workup (CTA of head/neck and brain MRI) reassuring. BP notably elevated and low dose Amlodipine initiated. Patient tolerated this well and blood pressure at age-appropriate goal on day of discharge. Symptoms resolved during stay; Tameka was cleared by therapies and she was r equesting discharge home on 07/22/23. Other notable findings with details above. Discussed symptoms with Psychiatry, who recommended a taper of Amoxepine with close f/u. Daughter Aida present during stay, understood plan upon d/c. Status at Discharge Functional status at discharge: uses cane/walker Time Spent with Patient Time attestation: Total time spent providing and/or coordinating discharge services: Time spent: Greater than 30 minutes Specific discharge activities: Medication reconciliation, education to patient and family members, documentation Exam Narrative: Exam Narrative: GEN: Alert, sitting comfortably in bedside chair, eating breakfast HEENT: EOMIs bilaterally, no scleral icterus CV: RRR, No concerning murmurs, rubs, or gallops R: LCTA bilaterally without concerning wheezing Ext: wwp, no concerning edema Skin: No concerning skin lesions or rashes on exposed skin Neuro: Ambulating well with walker, no resting tremor Psych: Appropriate Const: Vital Signs, click to edit/add: Vital Signs - 24 hr 07/21/23 13:00 07/21/23 13:00 07/21/23 15:30 Temperature 97.1 F L Pulse Rate Pulse Rate [Apical ] 101 H 99 Pulse Rate [orthos tatic lying] 101 H Pulse Rate [orthos tatic sitting] 106 H Pulse Rate [orthos tatic standing] 112 H Respiratory Rate 18 18 Blood Pressure [Le ft Arm] 158/85 H Blood Pressure [or thostatic lying] 154/105 H Blood Pressure [or thostatic sitting] 149/101 H Blood Pressure [or thostatic standing ] 158/85 H Pulse Oximetry 97 Oxygen Delivery Me thod Room Air 07/21/23 15:30 07/21/23 19:00 07/21/23 19:06 Temperature 98.9 F 99.2 F Pulse Rate 92 Pulse Rate [Apical ] 99 101 H Pulse Rate [orthos tatic lying] Pulse Rate [orthos tatic sitting] Pulse Rate [orthos tatic standing] Respiratory Rate 18 18 Blood Pressure [Le ft Arm] 166/105 H 160/101 H Blood Pressure [or thostatic lying] Blood Pressure [or thostatic sitting] Blood Pressure [or thostatic standing ] Pulse Oximetry 97 99 Oxygen Delivery Me thod Room Air Room Air 07/22/23 00:40 07/22/23 02:07 07/22/23 03:15 Temperature 97.8 F 98.2 F Pulse Rate 89 Pulse Rate [Apical ] 103 H 87 Pulse Rate [orthos tatic lying] Pulse Rate [orthos tatic sitting] Pulse Rate [orthos tatic standing] Respiratory Rate 18 16 Blood Pressure [Le ft Arm] 128/94 H 142/91 H Blood Pressure [or thostatic lying] Blood Pressure [or thostatic sitting] Blood Pressure [or thostatic standing ] Pulse Oximetry 93 96 Oxygen Delivery Me thod Room Air Room Air 07/22/23 07:00 Temperature Pulse Rate 95 Pulse Rate [Apical ] Pulse Rate [orthos tatic lying] Pulse Rate [orthos tatic sitting] Pulse Rate [orthos tatic standing] Respiratory Rate Blood Pressure [Le ft Arm] Blood Pressure [or thostatic lying] Blood Pressure [or thostatic sitting] Blood Pressure [or thostatic standing ] Pulse Oximetry Oxygen Delivery Me thod DS: Data Data Completed and Pending Labs on day of discharge: Labs from last 24 hours 07/22/23 05:45 WBC 5.66 RBC 4.93 Hgb 15.2 Hct 46.8 MCV 95 MCH 31 MCHC 33 RDW Coeff of Anu 12.3 Plt Count 281 Neut % (Auto) 62.5 Lymph % (Auto) 26.0 [place] % (Auto) 8.3 Eos % (Auto) 2.1 Baso % (Auto) 0.9 Neut # (Auto) 3.54 Lymph # (Auto) 1.47 [place] # (Auto) 0.50 Eos # (Auto) 0.12 Baso # (Auto) 0.05 Abs Immat Gran (auto) 0.01 Imm/Tot Granulo (auto) 0.2 Sodium 137 Potassium 3.7 Chloride 106 Carbon Dioxide 27 Anion Gap 4 L BUN 15 Creatinine 0.6 Estimated GFR 91 Glucose 104 Calcium 9.8 Total Bilirubin 0.5 AST 27 ALT 18 Alkaline Phosphatase 71 Total Protein 7.4 Albumin 4.2 TSH 2.740 Preliminary micro results at discharge 07/20/23 Unknown Urine Culture - Preliminary Urine,Clean Catch Discharge Plan Discharge Disposition: Home, Self-Care Date of Admission: 07/21/23 00:10 Attending Provider on Discharge: Verona Bermudez Primary Care Provider: Shaina Perry Condition: Improved Anticipated Discharge Date/Time: 07/22/23 11:07 Discharge Medications: New amlodipine 5 mg Tablet 5 mg PO DAILY Qty: 30 0RF Continued bupropion HCl 100 mg tablet sustained-release 12 hr 100 mg PO BID mirtazapine 15 mg tablet 7.5 mg PO HS PRN (Reason: insomnia) rivastigmine tartrate 3 mg capsule 3 mg PO BID dextromethorphan HBr 15 mg capsule 45 mg PO BID cholecalciferol (vitamin D3) 25 mcg (1,000 unit) tablet 25 mcg PO DAILY Discontinued amoxapine 100 mg tablet 100 mg PO HS Discharge Orders: Discharge Order (Routine); Ordered 07/22/23 Ordered By: Verona Bermudez Patient Education: Amlodipine (By mouth) Additional Instructions: MEDICATION CHANGES: 1. Amoxepine: Take 100mg at night for the next TWO nights, then 50mg at night for THREE nights, then stop 2. Amlodipine: this is a new blood pressure medication (5mg, low dose). Take once/day in the morning and have Dr. Perry recheck your BP at appt. You can check your blood pressure at home a few times/week if you have a machine and bring those results to clinic. Monitor for any lightheadedness. 3. Diet: eat as tolerated; if appetite decreases again, take OMEPRAZOLE 20mg in the morning to see if that helps Activity Level: Activity as Tolerated and Up with assist Discharge Diet: Regular Follow Up Appointments: Ellie Vides MD [Staff Physician] - 07/27/23 11:05 am ([facility] for follow-up and have BP check.) Shaina Perry MD [Primary Care Provider] - (Please make an appt at [facility] with Dr. Perry in 3-7 days for BP check and hospital d/c followup) Forms: [employer] Info Instructions
[2023-07-22 12:00] VITALS: BP 138/98; PULSE 99; RESP 16; TEMP 36.6; O2SAT 98
== END 2023-07-22 12:45 | disposition home or self-care (01) ==
LOC: ED 23:29 → MEDSURG 07-21 00:11
PROVIDERS: Family Medicine; Admitting Provider Family Medicine; Emergency Provider Family Medicine; PCP Family Medicine; Visit Provider Family Medicine
DX: R29.818 Other symptoms and signs involving the nervous system (principal); N39.0 Urinary tract infection, site not specified; R79.89 Other specified abnormal findings of blood chemistry; I10 Essential (primary) hypertension; R63.0 Anorexia; M62.81 Muscle weakness (generalized); R42 Dizziness and giddiness; F41.9 Anxiety disorder, unspecified; F32.A Depression, unspecified; I95.1 Orthostatic hypotension; F03.90 Unspecified dementia, unspecified severity, without behavioral disturbance, psychotic disturbance, mood disturbance, and anxiety; R26.2 Difficulty in walking, not elsewhere classified; I45.10 Unspecified right bundle-branch block; Z95.818 Presence of other cardiac implants and grafts; Z90.89 Acquired absence of other organs; Z98.890 Other specified postprocedural states
CPT/HCPCS: 36415; 70496; 70498; 70551; 71046; 80048; 80053; 81001; 82565; 83735; 83880; 84443; 84484; 85025; 87086; 93005; 93306; 96365; 96372; 96375; 97116; 97161; 97165; 97530; 97535; 99285; G0378; A9270; J0696; J1650; Q9967

== ENCOUNTER 2023-11-16 10:26 | Emergency (ER) | payer MEDICARE, BC, SELFPAY ==
[2023-11-16 10:39] VITALS: BP 160/91; PULSE 104; RESP 14; TEMP 36.4; O2SAT 99
--- NOTE | 2023-11-16 10:41 | ED.GENADULT ---
HPI - General Adult General Time Seen by Provider: 10:41 Date Seen: 11/16/23 Chief complaint: Syncope/Fainted Stated complaint: dizzy, lightheaded and weak Time Seen by Provider: 11/16/23 10:33 Source: patient, family and RN notes reviewed Mode of arrival: wheelchair Limitations: no limitations History of Present Illness HPI narrative: Mrs. Alfredito velez is a very pleasant 78-year-old female with history of near syncopal and syncopal episodes in the past, implanted loop monitor, history of hypertension who comes to the emergency room for evaluation of a fall and syncope. Patient noted to have arisen this morning normally and had breakfast. She had gone into her bedroom to change in while she was changing clothes became very dizzy, endorsing spinning of the room, fell to the floor and then was noted to be yelling for her from the bedroom. Unknown loss of consciousness because of this. There was no unusual behavior except for shakiness according to her . He did not note any seizure-type movements, vomiting, loss of bowel or bladder control. She was awake and alert when he went to find her. Her did press the button for the loop recorder this morning. Denies nausea vomiting chest pain diaphoresis when this occurred this morning. Denies any unusual sound in her ears. Karyn denies headache or neck pain at this time. She has no complaints of pain. She does note when she sits up she gets dizzy once again. She has not had any chest pain recent cough cold congestion. Patient's daughter Aida notes that this has happened 3-4 times in the past most recently in July of this year. She did not fully faint at that time. She did not endorses spinning sensation at that time. Aida also notes that her mom does not drink a lot of water and feels like she may be dehydrated. She seems to be prone to constipation and she has not had a bowel movement in the last couple of days. Karyn denies any abdominal pain. She denies any dysuria. She has had 1 UTI in the past. Related Data Home Medications ?Medication ?Instructions ?Recorded ?Confirmed bupropion HCl 100 mg tablet,12 hr 100 mg PO BID 07/20/23 11/16/23 sustained-release cholecalciferol (vitamin D3) 25 25 mcg PO DAILY 07/20/23 11/16/23 mcg (1,000 unit) tablet dextromethorphan HBr 15 mg capsule 45 mg PO BID 07/20/23 11/16/23 mirtazapine 15 mg tablet 7.5 mg PO HS PRN insomnia 07/20/23 11/16/23 rivastigmine tartrate 3 mg capsule 3 mg PO BID 07/20/23 11/16/23 Previous Rx's ?Medication ?Instructions ?Recorded amlodipine 5 mg tablet 5 mg PO DAILY #30 tabs 07/22/23 Allergies Allergy/AdvReac Type Severity Reaction Status Date / Time No Known Drug Allergies Allergy Verified 11/16/23 10:45 Review of Systems Status of ROS: Reports: 10 or more systems reviewed and unremarkable except as noted in History and below Const: Denies: fever or chills Eyes: Denies: change in vision or blurry vision ENMT: Denies: throat pain, neck pain or nasal congestion Cardio: Denies: chest pain, palpitations, swelling of feet/ankles or shortness of breath with exertion Resp: Denies: shortness of breath or cough GI: Reports: constipation; Denies: abdominal pain, nausea or vomiting : Denies: painful urination or urinary frequency Musculo: Denies: back pain, neck pain, extremity pain or extremity swelling Neuro: Denies: headache, numbness in extremities or weakness in extremities PFSH [facility] Medical History HTN (hypertension) ?I10 - Essential (primary) hypertension (ICD-10) Implantable loop recorder present ?Z95.818 - Presence of other cardiac implants and grafts (ICD-10) Dysequilibrium ?R42 - Dizziness and giddiness (ICD-10) Dementia ?F03.90 - Unspecified dementia, unspecified severity, without behavioral disturbance, psychotic disturbance, mood disturbance, and anxiety (ICD-10) Depression ?F32.A - Depression, unspecified (ICD-10) Anxiety ?F41.9 - Anxiety disorder, unspecified (ICD-10) Surgical History H/O sinus surgery ?Z98.890 - Other specified postprocedural states (ICD-10) History of tonsillectomy ?Z90.89 - Acquired absence of other organs (ICD-10) Social History What is your current living situation?: I presently have a place to live Problems where you live: no known problems Problems where you live details: no known problems In the past 12 months, utilities in danger of being shut off: no In past 12 months, lack of transportation kept you from medical appts, meetings, work, or getting things needed for daily living: no In the past 12 mos, have been you worried that your food would run out before you had money to buy more?: never true In the past 12 mos, the food you bought just didn't last and you didn't have money to buy more?: never true Smoking Status: Never smoker Do you use any of these nicotine containing products: None Second hand tobacco smoke exposure: Yes How often do you have a drink containing alcohol: never How often do you have six or more drinks on one occasion: Never AUDIT-C Alcohol total score: 0 Non-prescribed substance use: denies use Caffeine: Yes How often does anyone, including family, friends and others, physically hurt you: never How often does anyone, including family, friends and others, insult or talk down to you: never How often does anyone, including family, friends and others, threaten you with harm: never How often does anyone, including family, friends and others, scream or curse at you: never service: No Exam Narrative: Exam Narrative: Alert and oriented. Cooperative and interactive. Appropriate speech and mentation. Head is atraumatic normocephalic. EOM is full. Pupils are equal round reactive. Eyebrow raise face symmetrical. Tongue is midline. Oral cavity with moist mucous membranes. Heart with a tachycardic rate but normal rhythm. Lungs are clear bilaterally. Abdomen somewhat protruding but soft nontender. Lower extremities with scant peripheral edema. No evidence of erythema or calf tenderness. Upper and lower extremity strength intact. Sensation is intact. When I sit patient up she does become symptomatic with lightheadedness but the room is not spinning. She is able to sit up on her own. Const: Vital Signs, click to edit/add: Vital Signs - 24 hr 11/16/23 10:39 11/16/23 13:53 Temperature 97.6 F Pulse Rate [Right Pulse Oximeter] 104 H 95 Respiratory Rate 14 18 Blood Pressure [Ri ght Upper Arm] 160/91 H 164/85 H Pulse Oximetry 99 98 Oxygen Delivery Me thod Room Air Room Air Documenting provider has reviewed patient's vital signs: yes Course Course ED Course: Differential diagnosis includes but is not limited to CVA, closed head injury, acute coronary event, arrhythmia, vertigo, electrolyte imbalance, orthostatic hypotension, urinary tract infection. Will place an IV and give 500 mL normal saline. EKG, troponin, youth nutritional monitor are ordered. Will also check CBC, comprehensive panel, CRP, lactate, urinalysis and a chest x-ray. Will also check COVID is that has been more prevalent in our area in the last 2 weeks. Vital Signs Vital signs: Initial Vital Signs Temperature 97.6 F 11/16/23 10:39 Temperature Source Temporal Artery Scan 11/16/23 10:39 Pulse Rate 104 H 11/16/23 10:39 Pulse Rhythm Regular 11/16/23 10:39 Pulse Strength 3+ Normal 11/16/23 10:39 Respiratory Rate 14 11/16/23 10:39 Blood Pressure 160/91 H 11/16/23 10:39 Blood Pressure Mean 114 H 11/16/23 10:39 Pulse Oximetry 99 11/16/23 10:39 Oxygen Delivery Method Room Air 11/16/23 10:39 Vital Signs Temperature 97.6 F 11/16/23 10:39 Pulse Rate 104 H 11/16/23 10:39 Respiratory Rate 14 11/16/23 10:39 Blood Pressure 160/91 H 11/16/23 10:39 Pulse Oximetry 99 11/16/23 10:39 Oxygen Delivery Method Room Air 11/16/23 10:39 Temperature 97.6 F 11/16/23 10:39 Pulse Rate 95 11/16/23 13:53 Respiratory Rate 18 11/16/23 13:53 Blood Pressure 164/85 H 11/16/23 13:53 Pulse Oximetry 98 11/16/23 13:53 Oxygen Delivery Method Room Air 11/16/23 13:53 Medications Administered Medications: Discontinued Medications Generic Name Dose Route Start Last Admin Trade Name Freq PRN Reason Stop Dose Admin Amlodipine Besylate 5 mg 11/16/23 13:46 11/16/23 13:55 Amlodipine 5 Mg Tablet PO 11/16/23 13:47 5 mg ONCE ONE Administration Sodium Chloride 500 mls @ 500 mls/hr 11/16/23 11:01 11/16/23 14:11 0.9 % Sodium Chloride 500 Ml IV 11/16/23 12:00 Infused .Q1H ONE Infusion Medical Decision Making MDM Narrative Medical decision making narrative: 1. Syncopal episode-unsure if patient did lose consciousness. This has happened to her at least 3-4 times before and because of it she does have an implanted loop monitor. They did press the button after this happened at home but did not link up with the transmitter to download the information. I did check with Cardiology in regards to this and 1 of our hospitalists had access to the [email or web address] expressed but no information is there at this time. Patient has continued to be well in the ED with no evidence of arrhythmia pauses on the monitor. She had borderline tachycardia while here and was given her normal dose of amlodipine. She had no evidence of hypoxia chest pain or evidence of heart strain to indicate PE and she had no lower extremity symptoms. Patient had negative troponin and therefore I do not think we are dealing with acute coronary event. I did recheck that at a later time. It was negative once again. EKGs are reassuring. My 2nd discussion with Cardiology was regarding disposition for this patient. Because she does have an event monitor they do feel she is safe to go home. Will allow her to go home but do ask that she who cup with the transmitter so that we are able to download this information. Would also ask her to follow up with her primary Dr. Perry at the [facility] this week. Patient and her daughter feel comfortable with this plan. No evidence of UTI but a culture will be ordered. No evidence of electrolyte imbalance or underlying infection. 2. Decreased fluid intake-I have asked that Tameka have fluids when she wakes up in the morning approximately 8 oz and throughout the day 4 oz at the top of every hour. 2. Disposition-home at this time. Follow-up as previously discussed. Return to the emergency room for worsening symptoms. Medical Records Medical records reviewed: Yes I reviewed the patient's medical records Lab Data Lab results reviewed: Yes I reviewed the patient's lab results Labs: Lab Results 11/16/23 11/16/23 11/16/23 Range/Units 11:01 11:25 13:22 WBC 7.03 (4.50-11.00) K/uL RBC 4.37 (4.00-5.20) m/uL Hgb 13.5 (12.0-16.0) gm/dL Hct 42.1 (33.0-51.0) % MCV 96 (80-100) fL MCH 31 (26-34) pg MCHC 32 (32-36) gm/dL RDW Coeff of Anu 12.3 (11.5-15.5) % Plt Count 283 (140-440) K/uL Neut % (Auto) 79.6 H (42.0-72.0) % Lymph % (Auto) 11.4 L (20-44) % Mellette % (Auto) 7.7 (0.0-11.0) % Eos % (Auto) 0.3 (0.0-7.0) % Baso % (Auto) 0.7 (0.0-3.0) % Neut # (Auto) 5.60 (1.7-7.0) K/uL Lymph # (Auto) 0.80 L (0.90-2.90) K/uL Mellette # (Auto) 0.50 (0.00-0.90) K/UL Eos # (Auto) 0.02 (0.00-0.50) K/uL Baso # (Auto) 0.05 (0.00-0.30) K/uL Abs Immat Gran (auto) 0.02 (0.00-0.30) K/uL Imm/Tot Granulo (auto) 0.3 % Sodium 137 (135-149) mmol/L Potassium 4.4 (3.6-5.1) mmol/L Chloride 104 (96-114) mmol/L Carbon Dioxide 25 (20-32) mmol/L Anion Gap 8 (7-15) mEq/L BUN 29 (7-30) mg/dL Creatinine 0.8 (0.5-1.5) mg/dL Estimated GFR 74 ml/min Glucose 141 H (60-115) mg/dL Lactate 1.7 (0.5-1.9) mmol/L Calcium 9.4 (8.4-10.6) mg/dL Total Bilirubin 0.5 (0.1-1.5) mg/dL AST 33 (12-35) U/L ALT 25 (4-35) U/L Alkaline Phosphatase 62 (40-150) U/L C-Reactive Protein < 0.5 L (0.5-1.0) mg/dL Total Protein 7.3 (6.0-8.3) g/dL Albumin 4.6 (3.3-5.0) g/dL Urine Color Yellow (Yellow) Urine Appearance Clear (Clear) Urine pH 7.0 (5.0-8.5) Ur Specific Bethel 1.015 (1.000-1.030) Urine Protein Negative (Negative) Urine Glucose (UA) Negative (Negative) Urine Ketones Negative (Negative) Urine Blood Negative (Negative) Urine Nitrite Negative (Negative) Urine Bilirubin Negative (Negative) Urine Urobilinogen 0.2 (0.2-1.0) Ur Leukocyte Esterase Trace A (Negative) Urine RBC 0-2 (0-2) Urine WBC 2-5 (0-5) Ur Squamous Epith Cells Few (None-Few) Amorphous Sediment Few A (None) Urine Bacteria Few A (None) SARS-CoV-2 (PCR) Negative SARS-CoV-2 (Negative) Influenza Type A (PCR) Negative PCR FLU A (Negative) Influenza Type B (PCR) Negative PCR FLU B (Negative) RSV (PCR) Negative PCR RSV (Negative) POC Troponin I 0.00 L (0.01-0.04) ng/ml 11/16/23 Range/Units 13:34 WBC (4.50-11.00) K/uL RBC (4.00-5.20) m/uL Hgb (12.0-16.0) gm/dL Hct (33.0-51.0) % MCV (80-100) fL MCH (26-34) pg MCHC (32-36) gm/dL RDW Coeff of Anu (11.5-15.5) % Plt Count (140-440) K/uL Neut % (Auto) (42.0-72.0) % Lymph % (Auto) (20-44) % Mellette % (Auto) (0.0-11.0) % Eos % (Auto) (0.0-7.0) % Baso % (Auto) (0.0-3.0) % Neut # (Auto) (1.7-7.0) K/uL Lymph # (Auto) (0.90-2.90) K/uL Mellette # (Auto) (0.00-0.90) K/UL Eos # (Auto) (0.00-0.50) K/uL Baso # (Auto) (0.00-0.30) K/uL Abs Immat Gran (auto) (0.00-0.30) K/uL Imm/Tot Granulo (auto) % Sodium (135-149) mmol/L Potassium (3.6-5.1) mmol/L Chloride (96-114) mmol/L Carbon Dioxide (20-32) mmol/L Anion Gap (7-15) mEq/L BUN (7-30) mg/dL Creatinine (0.5-1.5) mg/dL Estimated GFR ml/min Glucose (60-115) mg/dL Lactate (0.5-1.9) mmol/L Calcium (8.4-10.6) mg/dL Total Bilirubin (0.1-1.5) mg/dL AST (12-35) U/L ALT (4-35) U/L Alkaline Phosphatase (40-150) U/L C-Reactive Protein (0.5-1.0) mg/dL Total Protein (6.0-8.3) g/dL Albumin (3.3-5.0) g/dL Urine Color (Yellow) Urine Appearance (Clear) Urine pH (5.0-8.5) Ur Specific Bethel (1.000-1.030) Urine Protein (Negative) Urine Glucose (UA) (Negative) Urine Ketones (Negative) Urine Blood (Negative) Urine Nitrite (Negative) Urine Bilirubin (Negative) Urine Urobilinogen (0.2-1.0) Ur Leukocyte Esterase (Negative) Urine RBC (0-2) Urine WBC (0-5) Ur Squamous Epith Cells (None-Few) Amorphous Sediment (None) Urine Bacteria (None) SARS-CoV-2 (PCR) (Negative) Influenza Type A (PCR) (Negative) Influenza Type B (PCR) (Negative) RSV (PCR) (Negative) POC Troponin I 0.00 L (0.01-0.04) ng/ml Imaging Data Chest x-ray: Attestation: I have reviewed the pertinent imaging results. Radiologist's impression: Cardiovascular and mediastinum: Normal heart size with atherosclerotic calcification. Lungs and pleural space: Lungs are clear. No sign of infiltrate or mass. No sign of pleural effusion. No pneumothorax. Bones and soft tissues: Recording device overlies the left hemithorax. CT scan - head: Attestation: I have reviewed the pertinent imaging results. Radiologist's impression: CSF spaces: Within normal limits for age. Brain parenchyma and extra-axial spaces: The serra-white differentiation is normal. No sign of mass, hemorrhage, or midline shift. No extra-axial fluid collection. Skull base and calvarium: The visualized paranasal sinuses and mastoid air cells demonstrate no acute or significant findings. The visualized orbits are grossly unremarkable. No skull fractures. Atherosclerosis. IMPRESSION: Unremarkable noncontrast head CT. ECG Data Attestation: I personally reviewed and interpreted this ECG as follows: Interpretation: EKG by my read shows sinus tachycardia at a rate of 101. I do not note any acute ST or T-wave changes. IN interval and QT intervals within normal limits. Discharge Plan Discharge Clinical Impression: Recurrent syncope Patient Disposition: Home w/ Parent or Adult Condition: Improved Additional Instructions: Recommend good hydration. Please drink 8 oz of water when you wake up in the morning. Then throughout the day at the top of every hour drink an additional 4 oz. When you return home use your event recorder at home. You may have to call for instructions on how to do this. Follow-up with doctors band sometime this week for recheck. They may want you to see Cardiology once again. Return to the emergency room for any real worsening symptoms. You may take your additional medications when you return home. With the exception of amlodipine which was given here in the emergency room Today your blood work showed a normal white count, hemoglobin, electrolyte panel. Your kidney function is also normal. Your glucose is slightly elevated at 141. However, this would not be unusual after what happened to you today. Liver function tests are normal. Your CRP or inflammatory marker is normal. Your urinalysis did not show any evidence of a UTI but we will be sending this for a culture. You of tested negative for COVID influenza and RSV. You have a reassuring EKG and your troponin was negative x2 Prescriptions: No Action bupropion HCl 100 mg tablet sustained-release 12 hr 100 mg PO BID mirtazapine 15 mg tablet 7.5 mg PO HS PRN (Reason: insomnia) rivastigmine tartrate 3 mg capsule 3 mg PO BID dextromethorphan HBr 15 mg capsule 45 mg PO BID cholecalciferol (vitamin D3) 25 mcg (1,000 unit) tablet 25 mcg PO DAILY amlodipine 5 mg Tablet 5 mg PO DAILY Qty: 30 0RF Follow Up/Referrals: Shaina Perry MD [Primary Care Provider] - Stand Alone Forms: [facility] Info Instructions
--- NOTE | 2023-11-16 11:01 | CRLHL7_ITS ---
For Patients: As a result of the Century Cures Act, medical imaging exams and procedure reports are released immediately into your electronic medical record. You may view this report before your referring provider. If you have questions, please contact your health care provider. INDICATION: Dizzy, lightheaded and weakness. TECHNIQUE: CT head without contrast. COMPARISON: MRI brain 07/21/[address] 08/12/2020. FINDINGS: CSF spaces: Within normal limits for age. Brain parenchyma and extra-axial spaces: The serra-white differentiation is normal. No sign of mass, hemorrhage, or midline shift. No extra-axial fluid collection. Skull base and calvarium: The visualized paranasal sinuses and mastoid air cells demonstrate no acute or significant findings. The visualized orbits are grossly unremarkable. No skull fractures. Atherosclerosis. IMPRESSION: Unremarkable noncontrast head CT. Please note that all CT scans at this facility use dose modulation, iterative reconstruction, and/or weight-based dosing when appropriate to reduce radiation dose to as low as reasonably achievable. Dictated by Devin Baker MD @ 11/16/2023 12:03:38 PM (Electronically Signed)
--- NOTE | 2023-11-16 11:01 | CRLHL7_ITS ---
For Patients: As a result of the Century Cures Act, medical imaging exams and procedure reports are released immediately into your electronic medical record. You may view this report before your referring provider. If you have questions, please contact your health care provider. Indication: Dizzy, lightheaded and weak Technique: Chest 1 view Comparison: Chest x-ray 07/20/2023 Findings/Impression: Cardiovascular and mediastinum: Normal heart size with atherosclerotic calcification. Lungs and pleural space: Lungs are clear. No sign of infiltrate or mass. No sign of pleural effusion. No pneumothorax. Bones and soft tissues: Recording device overlies the left hemithorax. Dictated by Devin Baker MD @ 11/16/2023 11:30:18 AM (Electronically Signed)
--- OUTSIDE RECORDS SUMMARY | 2023-11-16 11:19 | XMS_ITS | Clinical Summary ---
Author Organization [facility] Address [address] [address] Care Team Providers Care Club Car Attendant Name Role Phone Unavailable Primary Care Provider Unavailabl e Source Comments You are receiving this document as you are listed as the primary care provider,follow-up provider, or the patient has been referred to you for consultation.This is in compliance with the Medicare andMedicaid EHR Incentive Program,which states Providers who transition their patient to another setting of careor provider of care or refers their patient to another provider of care shouldprovide summary care record for each transition of care or referral. [facility] Allergies No known active allergies Medications No known medications Social History Tobacco Use Types Packs/Day Years Used Date Smoking Tobacco: Never Assessed Sex and Gender Information Value Date Recorded Sex Assigned at Not on file Gender Identity Not on file Sexual Orientation Not on file Plan of Treatment Health Maintenance Due Date Last Done Comments Medicare Annual Wellness Visit 1945 DTaP/Tdap/Td (1 - Tdap) 1962 Zoster/Shingles (1 of 2) 1993 Dexa 2008 Pneumococcal 65+ Yrs (1 - PCV) 2008 COVID-19 Vaccine ( - 2022-2 4 season) 2023 Influenza (Season Ended) 2024 HepA Aged Out No longer eligi ble based on patient's age to complete this topic HepB Aged Out No longer eligi ble based on patient's age to complete this topic Hib Aged Out No longer eligi ble based on patient's age to complete this topic IPV (Polio) Aged Out No longer eligi ble based on patient's age to complete this topic MCV4 Aged Out No longer eligi ble based on patient's age to complete this topic
--- OUTSIDE RECORDS SUMMARY | 2023-11-16 11:19 | XMS_ITS | Clinical Summary ---
Author Organization [facility] Address [address] [address] Phone Care Team Providers Care Powder Blender Name Role Phone Elsewhere, Pcp Primary Care Provider Unavailabl e Allergies No known active allergies Medications Medication Sig Dispensed Refills Start Date End Date Status mirtazapine (REMERON) 30 MG tablet Take 30 mg by mouth at bedtime. Active Multiple Vitamins-Minerals (PX COMPLETE SENIOR MULTIVITS) Tab Take by mouth. Active Fish Oil Oil by Does not apply route. Active Vitamin D, Cholecalciferol, 1000 UNITS Tab Take 2,000 mg by mouth. Active Vilazodone HCl (VIIBRYD OR) Take by mouth at bedtime. Active carbidopa-levodopa (PARCOPA) 10-100 MG Tablet Disintegrating Take 1 Tab by mouth three times a day. 11/16/2018 Active NEW DRUGIndications:jyoti pui from accupuncturist 1 Each by Does not apply route. Indications: jyoti pui from accupuncturist Active Active Problems No known active problems Social History Tobacco Use Types Packs/Day Years Used Date Smoking Tobacco: Never Smokeless Tobacco: Never PHQ-2 Answer Date Recorded PHQ-2 Score 3 01/04/2019 Sex and Gender Information Value Date Recorded Sex Assigned at Not on file Gender Identity Not on file Sexual Orientation Not on file Obstetrics History Last Filed Vital Signs Vital Sign Reading Time Taken Comments Blood Pressure 137/82 01/04/2019 2:48 PM CDT Pulse 80 01/04/2019 2:48 PM CDT Temperature 36.9 ??C (98.4 ??F) 01/04/2019 2:48 PM CD T Respiratory Rate 24 01/04/2019 2:48 PM CDT Oxygen Saturation 97% 01/04/2019 2:48 PM CDT Inhaled Oxygen Concentration - - Weight 48.3 kg (106 lb 6.4 oz) 01/04/2019 2:48 P M CDT Height 152.4 cm (5') 01/04/2019 2:48 PM CDT Body Mass Index 20.78 01/04/2019 2:48 PM CDT Plan of Treatment Health Maintenance Due Date Last Done Comments PERTUSSIS (Standing Order) 1962 TETANUS (Standing Order) 1962 Shingrix (Zoster recombinant ) vaccine (Standing Order) (1 of 2) 1993 RSV Vaccination (60+ yrs) (Abrysvo/Arexvy) (1 - 1-dose 60+ series) 2003 DXA,FEMALES AGE 65 OR GREATER 2008 Pneumococcal Vaccine: 65+ yr s (Standing Order) (1 of 1 - PCV) 2008 Influenza Vaccine Seasonal (Standing Order) (Season Ended) 2024 HPV Vaccine (Standing Order) Aged Out No longer eligible based on patient's age to complete this topic Hepatitis B Vaccine (Standin g Order) Aged Out No longer eligible b ased on patient's age to complete this topic Care Teams Powder Blender Relationship Specialty Start Date End Date Elsewhere, Pcp PCP - General 10/25/14
--- OUTSIDE RECORDS SUMMARY | 2023-11-16 11:19 | XMS_ITS | Clinical Summary ---
Author Organization [facility] Address [place], [place] [address] Care Team Providers Care Supervisor Wire Rope Fabrication Name Role Phone Jovan Guthrie Irvin Unavailable [phone] Emma Babcock MD Unavailable [phone] Priscila Carter Unavailable [phone] Shaina Perry MD Primary Care Provider [phone] Allergies No known active allergies Medications Medication Sig Dispensed Refills Start Date End Date Status acetaminophen (Q-PAP) 500 mg tablet Take 500 mg by mouth every 6 hours if needed. Max acetaminophen dose: 4000mg in 24 hrs. Active calcium carbonate (CALCIUM 500) 500 mg calcium (1,250 mg) tablet Take 1,250 mg by mouth once daily with a meal. Active omega-3 fatty acids-vitamin E (FISH OIL) 1,000 mg cap Take 1 capsule by mouth once daily. Active multivitamin (MVI) tablet Take 1 tablet by mouth once daily. Active lactobac cmb #[id number] (PROBIOTIC & ACIDOPHILUS) 300-250 million cell-mg cap Take 1 tablet by mouth once daily. 0 04/27/2015 Active medication order TaurusYaya from thermospray operator 0 09/14/2018 Active rivastigmine tartrate (EXELON) 1.5 mg capsuleIndications: Major neurocognitive disorder due to Alzheimer's disease, without behavioral disturbance (HC) Take 1 Capsule (1.5 mg) by mouth two times daily with meals. Prescribed by neurologist, Dr. Goins 12/29/2022 Active cholecalciferol (VITAMIN D3) 1,000 unit tabletIndications:O steopenia, unspecified location TAKE ONE TABLET BY MOUTH ONCE EVERY DAY . 90 Tablet 3 02/14/2023 Active diclofenac topical (VOLTAREN) 1 % gelIndications:Blankbook Forwarder dafne pain of both knees,Bilateral primary osteoarthritis of knee Apply 4 g topically to affected area(s) 4 times daily if needed (pain). 100 g 2 03/05/2023 Active omeprazole 20 mg tablet Take 20 mg by mouth once daily before a meal. PRN 08/13/2023 Active amoxapine (ASENDIN) 100 mg tabletIndications:M ajor depressive disorder, recurrent episode, moderate (HC) Take 0.5 Tablets (50 mg) by mouth at bedtime for 14 days, THEN 1 Tablet (100 mg) at bedtime. 90 Tablet 3 08/14/2023 Active amLODIPine (NORVASC) 5 mg tabletIndications:H ypertension, unspecified type Take 1 Tablet (5 mg) by mouth once daily. 90 Tablet 08/21/2023 Active buPROPion (WELLBUTRIN SR) 100 mg Sustained-Release tabletIndications:M ajor depressive disorder, recurrent episode, moderate (HC) Take 1 Tablet (100 mg) by mouth two times daily. Mornings and afternoons to avoid worsening sleep 180 Tablet 3 09/07/2023 Active Dextromethorphan HBr 15 mgIndications:Major depressive disorder, recurrent episode, moderate (HC) Take 3 Capsules (45 mg) by mouth two times daily. With a bupropion 100 mg tablet. 540 Capsule 3 09/07/2023 Active mirtazapine (REMERON) 15 mg tabletIndications:I nsomnia due to mental condition Takes 0.5 tablets (7.5 mg) by mouth if needed for sleep at bedtime 90 Tablet 1 09/07/2023 Active Active Problems Problem Noted Date Diagnosed Date Generalized anxiety disorder 12/29/2022 Concussion 03/28/2022 Partial thickness burn of hand 03/28/2022 Major neurocognitive disorde r due to Alzheimer's disease, without behavioral disturbance 10/07/2021 Status post placement of implantable loop record er 02/13/2021 Overview: Indication for ILR: Syncope Primary Physician: Shaina Perry MD Requesting Provider: Khoa Javier MD Implanting Provider: FLAKITO Cunha Consulting EP Air Conditioning Installer Supervisor: Leonor Cordero MD DEVICE DATA Artificial Breeding Distributor: Medtronic Model: [id number] Serial #: [id number] Implant Date: 01/16/2021 HOME MONITOR Artificial Breeding Distributor: Medtronic Model: [employer] Relay [id number] Serial #: [id number] ?? Syncope and collapse 02/13/2021 Prediabetes 12/22/2019 Learning disorder 04/13/2018 Controlled substance agreement signed 11/14/2016 Overview: Controlled substance agreement for Xanax on file and signed 11/14/2016. Designated pharmacy: [facility] [phone] Prescribing physician:Emma Babcock MD. Diagnosis: CARMEN. Maureen Storey .................... 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 Display name retained. Unspecified urinary incontinence 06/29/2007 Major depressive disorder, recurrent episode, mo derate 11/17/2006 Overview: Psych hx: Many trials-- Zoloft Effexor Remeron Paxil Celexa Resolved Problems Problem Noted Date Diagnosed Date Resolved Date Oral dyskinesia 07/20/2023 07/20/2023 Dementia without behavioral disturbance 08/21/2020 10/07/2021 Anxiety 04/13/2018 10/07/2021 Lipid screening 01/31/2016 02/17/2017 Lipid screening 01/31/2016 02/17/2017 Generalized anxiety disorder 01/19/2015 10/07/2021 CARMEN (generalized anxiety disorder) 03/22/2014 10/07/2021 Cognitive disorder 04/26/2012 Overview: Cognitive impairment; possibly baseline (s/p neuropsych testing 02/26, no clear evidence of dementia at the time), monitoring Mild cognitive impairment 12/02/2011 Pain in limb 06/29/2007 10/29/2021 Overview: 05/2006- seen by DR. Jamarcus guevara at [facility] Type Department Care Team Description 11/15/2023 Refill [facility] [address] [place] [address] Shaina Perry MD Refill Request (Amlodipine) 10/01/2023 1:20 PM CDT Office Visit [facility] [address] [place] [address] Charlie Yu MD Follow Up (Bilateral knee pain-wants injections) 10/01/2023 Travel 09/07/2023 8:30 AM CDT Office Visit [address] [address] Fareed Bethea MD Follow Up 09/07/2023 Orders Only [address] [address] Adore Mendoza, R.T. (ARRT) 1 scan: (1-Ord) NFLD-EKG-09/01/23 09/07/2023 Travel 09/02/2023 E-Consult [address] [facility] [address] Jean Pierre Wayne MD 09/01/2023 8:20 AM CDT Office Visit [facility] [address] [place] [address] Shaina Perry MD Follow Up 09/01/2023 Telephone [facility] [address] [facility] [address] Shaina Perry MD Follow Up 09/01/2023 Travel 08/20/2023 Refill [facility] [address] [place] [address] Shaina Perry MD Refill Request (AMLODIPINE) from Last 3 Months Immunizations Name Administration Dates Next Due COVID-19 Vaccine Spikevax (M oderna 50mcg/0.5mL) 12YO+ [id number] Formula PF 03/05/2023 COVID-19 vaccine (Yardsale-Bio NTech 30mcg/0.3mL) PFMDV 07/28/2020,07/28/2020,07/07/2020 Influenza A (H1N1), Inactivated 06/29/2009 Influenza A (H1N1), Inactiva libra (Age >=3 Years) 06/29/2009 Influenza Virus, Unspecified 03/20/2013 Influenza, High-dose Inactivated 019,03/22/2018,02/26/2016,2014 Influenza, High-dose Quadriv alent Inactivated 02/27/2021,04/01/2020 Influenza, IIV3 (Age >=3 years) 03/20/2013,03/18,03/18/2007 Influenza, Inactivated AIIV4 (Age 65+ Years) Preserv Free 03/05/2023,01/23/2022 Influenza, Inactivated IIV3 (Age 65+ Years) Preserv Free 03/10/2017 Pneumococcal Poly,23-Valent (Pneumovax) 03/20/2013 Pneumococcal conj 13-Valent (Prevnar 13) 08/23/2014 Td (Age >=7 Years) 05/30/1999 Td, Preservative Free (age > = 7 Years) 06/29/2009 Tdap 08/18/2012 Zoster (Shingrix-RZV, recombinant) 12/29/2019 Zoster (Zostavax-ZVL, live) 11/15/2013 Family History Medical History Relation Name Comments Good Health Brother 2 Depression Father Heart Disease Father Hypertension Father Psychiatric illness Father depressi on and had ECT Anxiety disorder Mother Heart Disease Mother Other Mother Alzheimer's Psychiatric illness Mother anxiety Cancer Sister 3 Good Health Sister 4 Cancer-breast No Family History Relation Name Status Comments Brother 1 Alive Brother 2 Father Mother Sister 1 Sister 2 Alive Sister 3 Sister 4 Social History Tobacco Use Types Packs/Day Years Used Date Smoking Tobacco: Never Smokeless Tobacco: Never Tobacco Cessation:Counseling Given: Yes Alcohol Use Standard Drinks/Week Comments No 0 (1 standard drink = 0.6 oz pur e alcohol) denied lifetime PHQ-2 Answer Date Recorded PHQ-2 TOTAL SCORE 6 09/07/2023 Social Connections Answer Date Recorded Frequency of Communication with Friends and Fami ly 0 07/27/2023 Alcohol Use Answer Date Recorded How often do you have a drink containing alcohol ? 0 10/07/2021 Average Number of Drinks Not on file 022 Frequency of Binge Drinking Not on file 09/16 Financial Resource Strain Answer Date R ecorded Difficulty of Paying Living Expenses 3 07/27/2023 Difficulty of Paying Living Expenses Not on file 07/27/2023 Food Insecurity Answer Date Recorded Worried About Running Out of Food in the Last Ye ar 1 07/27/2023 Transportation Needs Answer Date Record ed Lack of Transportation (Medical) 1 07/27/2023 Housing Stability Answer Date Recorded Unable to Pay for Housing in the Last Year 1 07/27/2023 Education Answer Date Recorded What is the highest level of school you have completed or the highest degree you have received? High school graduate 10/07/2021 Sex and Gender Information Value Date Recorded Sex Assigned at Female 03/25/2021 11:12 PM LINE RUNNER Gender Identity Female 03/25/2021 11:12 PM LINE RUNNER Sexual Orientation Straight 03/25/2021 11 :12 PM LINE RUNNER Obstetrics History Para Term AB IAB SAB Ectopic Multiple Livin g Live Births 9 8 8 1 1 8 Date Outcome GA Total Labor Labor/2nd/3rd Weight Sex Type Anes PTL Renita A1 A5 Name Clin Term Term Term Term Term Term Term Term SAB Last Filed Vital Signs Vital Sign Reading Time Taken Comments Blood Pressure 146/84 10/01/2023 1:26 PM CDT Pulse 97 10/01/2023 1:26 PM CDT Temperature 36.9 ??C (98.5 ??F) 07/27/2023 2:27 PM CD T Respiratory Rate 18 01/16/2021 1:30 PM CDT Oxygen Saturation 96% 10/01/2023 1:26 PM CDT Inhaled Oxygen Concentration - - Weight 51.3 kg (113 lb) 10/01/2023 1:26 PM CDT Height 150.4 cm (4' 11.2) 07/27/2023 2:27 PM CD T Body Mass Index 22.67 07/27/2023 2:27 PM CDT Plan of Treatment Upcoming Encounters Date Type Department Care Team (Late st Contact Info) Description 11/23/2023 8:00 AM CDT Office Visit [facility] [address] [place] [address] Fareed Bethea MD [address] [place] [address] 12/17/2023 8:00 AM CDT Office Visit [facility] [address] [place] [address] Charlie Yu MD [address] [place] [address] 01/15/2024 Cardiac Device Check [facility] [phone] 02/02/2024 7:30 AM CDT Office Visit [facility] [address] [place] [address] Shaina Perry MD [address] [place] [address] Health Maintenance Due Date Last Done Comments Zoster (shingles) series for age 50+ (3 of 3) 02/23/2020 12/29/2019, 11/15/2013 Tetanus booster 08/18/2022 08/18/2012, 06/18, 05/30/1999 COVID-19 vaccine series ( season) 2023 03/05/2023, 03/28/2022, 08/30/2021, Additional history exists Influenza for age 65+ 01/17/2024 03/05/2023 , 01/23/2022, 02/27/2021, Additional history exists Medicare Wellness for age 65+ 01/28/2024, 01/23/2022, 01/22/2021, Additional history exists BMI (ht and wt on same day) for age 18+ 07/26/2024 07/27/2023, 03/18/2023, 01/27/2023, Additional history exists Depression screening for age 12+ 09/06/2024 09/07/2023, 07/22/2023, 07/22/2023, Additional history exists Tdap Completed 08/18/2012 Pneumococcal series for age 65+ Completed 5, 03/20/2013 DEXA/DXA scan for age 65+ Completed 2017, 08/24/2012, 07/26/2010 Procedures Procedure Name Priority Date/Time Associated Diagnosis Comments IN READING EKG - NO CHARGE, COMP ONLY Routine 09/07/2023 12:16 PM CDT High risk medications (not anticoagulants) long-term use EKG 12 LEAD Routine 09/07/2023 12:16 PM CDT High risk medications (not anticoagulants) long-term use MAGNESIUM Routine 09/07/2023 9:39 AM CDT Prolonged Q-T interval on ECG Long-term use of high-risk medication POTASSIUM Routine 09/07/2023 9:39 AM CDT Prolonged Q-T interval on ECG Long-term use of high-risk medication XR DXA BONE DENSITY 2 SITES AXIAL Routine 09/17/2017 9:09 AM CDT Menopause from Last 3 Months or Most Recently Relevant to Health Maintenance Results * EKG 12 LEAD (09/07/2023 12:16 PM CDT) Shaina Perry MD EKG ORD * IN READING EKG - NO CHARGE, COMP ONLY (09/07/2023 12:16 PM CDT) Shaina Perry MD PB - PROVIDER READI NGS * POTASSIUM (09/07/2023 9:39 AM CDT) POTASSIUM 4.6 3.5 - 5.1 mmol/L 09/07/2023 7:12 PM CDT [facility] Blood BLOOD SPECIMEN / Unknown Venipuncture / Unknown 09/07/2023 9:39 AM CDT 09/07/2023 9:41 AM CDT Fareed Bethea MD CHEMISTRY Performing Organization Address [facility] Co de Phone Number [facility] [address] [place] [address], * MAGNESIUM (09/07/2023 9:39 AM CDT) MAGNESIUM 2.1 1.6 - 2.4 mg/dL 09/07/2023 7:12 PM CDT [facility] Blood BLOOD SPECIMEN / Unknown Venipuncture / Unknown 09/07/2023 9:39 AM CDT 09/07/2023 9:41 AM CDT Fareed Bethea MD CHEMISTRY Performing Organization Address [facility] Phone Number [facility] [address] [place] [address], * XR DXA BONE DENSITY 2 SITES AXIAL (09/17/2017 9:09 AM CDT) Anatomical Region Laterality Modality Spine, HIPS, HIPL, HIPR Other Sommer Long NP DEXA from Last 3 Months or Most Recently Relevant to Health Maintenance Advance Directives Documents on File Type Date Recorded Patient Tassel Snipper Expl anation Power of Alternative Dispute Resolution Mediator 09/20/2008 [facility] IELD, POWER OF SENIOR DATA MODELER, 09/20/2008 * Full Code (Latest Code Status on File) Date Activated Date Inactivated Comments 01/16/2021 10:29 AM 01/16/2021 3:45 PM Question Answer Comments Code Status Discussion: Not Discussed * Full Code Date Activated Date Inactivated Comments 11/28/2020 8:40 AM 11/29/2020 2:12 AM Question Answer Comments Code Status Discussion: Discussed * Full Code Date Activated Date Inactivated Comments 11/23/2020 8:06 AM 11/24/2020 2:07 AM Question Answer Comments Code Status Discussion: Discussed * Full Code Date Activated Date Inactivated Comments 11/21/2020 8:01 AM 11/22/2020 2:08 AM Question Answer Comments Code Status Discussion: Discussed * Full Code Date Activated Date Inactivated Comments 11/19/2020 9:39 AM 11/20/2020 2:07 AM Question Answer Comments Code Status Discussion: Discussed Care Teams Supervisor Wire Rope Fabrication Relationship Specialty Start Date End Date Shaina Perry MD [address] [place] [address] PCP - General Family Practice 09/20/18 Jovan Guthrie [address] [place] [address] Spinner Operator 08/19/13 Emma Babcock MD [address] [address] Psychiatry 09/04/15 Priscila Carter L Ac [address] [id number] Volunteer Services Coordinator 09/04/16
[2023-11-16] MEDS: 0.9 % SODIUM CHLORIDE 500 ML 500 ML IV (11:30)
[2023-11-16 11:34] LABS: Lactate* 1.7 mmol/L (0.5-1.9)
[2023-11-16 11:36] LABS: Basophils Absolute Auto 0.05 K/uL (0.00-0.30); Basophils Percent Auto 0.7 % (0.0-3.0); Eosinophils Absolute Auto 0.02 K/uL (0.00-0.50); Eosinophils Percent Auto 0.3 % (0.0-7.0); Hematocrit 42.1 % (33.0-51.0); Hemoglobin* 13.5 gm/dL (12.0-16.0); Immature Granulocytes Abs Auto 0.02 K/uL (0.00-0.30); Immature Granulocytes Pct Auto 0.3 %; Lymphocytes Percent Auto 11.4 % (20-44); Mean Corpuscular HGB Conc 32 gm/dL (32-36); Mean Corpuscular Hemoglobin 31 pg (26-34); Mean Corpuscular Volume 96 fL (80-100); Monocytes Percent Auto 7.7 % (0.0-11.0); Neutrophils Percent Auto 79.6 % (42.0-72.0); Platelet Count* 283 K/uL (140-440); RDW Coefficient of Variation % 12.3 % (11.5-15.5); Red Blood Count 4.37 m/uL (4.00-5.20); White Blood Count* 7.03 K/uL (4.50-11.00)
[2023-11-16 11:41] LABS: Slide Review Reflex No
[2023-11-16 11:48] LABS: Chloride* 104 mmol/L (96-114)
[2023-11-16 11:49] LABS: Albumin* 4.6 g/dL (3.3-5.0); Potassium* 4.4 mmol/L (3.6-5.1); Sodium* 137 mmol/L (135-149)
[2023-11-16 11:51] LABS: Creatinine* 0.8 mg/dL (0.5-1.5); Estimated Glomerular Filt Rate 74 ml/min
[2023-11-16 11:52] LABS: Alanine Aminotransferase* 25 U/L (4-35); Alkaline Phosphatase* 62 U/L (40-150); Anion Gap 8 mEq/L (7-15); Aspartate Amino Transferase* 33 U/L (12-35); Bilirubin Total* 0.5 mg/dL (0.1-1.5); Blood Urea Nitrogen* 29 mg/dL (7-30); Carbon Dioxide* 25 mmol/L (20-32); Glucose* 141 mg/dL (60-115); Total Protein* 7.3 g/dL (6.0-8.3)
[2023-11-16 11:53] LABS: Calcium* 9.4 mg/dL (8.4-10.6)
[2023-11-16 11:55] LABS: C Reactive Protein* < 0.5 mg/dL (0.5-1.0)
[2023-11-16 12:31] LABS: PCR FLU A Negative PCR FLU A (Negative); PCR FLU B Negative PCR FLU B (Negative); PCR RSV Negative PCR RSV (Negative); SARS PCR* Negative SARS-CoV-2 (Negative)
[2023-11-16 13:28] LABS: Appearance Urine Clear (Clear); Bilirubin Urine Negative (Negative); Blood Urine Negative (Negative); Color Urine Yellow (Yellow); Glucose Urine Negative (Negative); Ketones Urine Negative (Negative); Leukocyte Esterase Urine Trace (Negative); Nitrite Urine Negative (Negative); Protein Urine Negative (Negative); Specific Gravity Urine 1.015 (1.000-1.030); Urobilinogen Urine 0.2 (0.2-1.0)
[2023-11-16 13:46] LABS: Amorphous Sediment Urine Few; Bacteria Urine Few; RBC Urine 0-2 (0-2); Squamous Epithelial Cell Urine Few (None-Few)
[2023-11-16 13:53] VITALS: BP 164/85; PULSE 95; RESP 18; O2SAT 98
[2023-11-16] MEDS: AMLODIPINE 5 MG TABLET PO (13:55)
== END 2023-11-16 14:54 | disposition home or self-care (01) ==
PROVIDERS: Emergency Provider Family Medicine; PCP Family Medicine
DX: R55 Syncope and collapse (principal); W19.XXXA Unspecified fall, initial encounter
CPT/HCPCS: 36415; 70450; 71045; 80053; 81001; 83605; 84484; 85025; 86140; 87086; 87631; 93005; 99284; 99285; A9270; J7030

== ENCOUNTER 2024-03-08 08:45 | Outpatient (RCR) | payer MEDICARE, BC, SELFPAY | END 2024-06-23 14:00 | disposition home or self-care (01) | PROVIDERS: PCP Family Medicine; Visit Provider Family Medicine | DX: M17.0 Bilateral primary osteoarthritis of knee (principal); M25.561 Pain in right knee; M25.562 Pain in left knee; G89.29 Other chronic pain; Z51.89 Encounter for other specified aftercare | CPT/HCPCS: 97110; 97112; 97162 ==

== ENCOUNTER 2025-03-17 15:28 | Inpatient (IN) | payer MEDICARE, BC, SELFPAY ==
[2025-03-17] VITALS (27 sets, daily range): BP systolic 138–173; BP diastolic 81–94; PULSE 77–105; RESP 14–20; TEMP 36.2–36.5; O2SAT 95–100; BMI 21.5; BMI 24.6
--- OUTSIDE RECORDS SUMMARY | 2025-03-17 15:30 | XMS_ITS | Clinical Summary ---
Author Organization [facility] Address [address] [address] Care Team Providers Care Life Skills Trainer Name Role Phone Unavailable Primary Care Provider Unavailabl e Source Comments You are receiving this document as you are listed as the primary care provider,follow-up provider, or the patient has been referred to you for consultation.This is in compliance with the Medicare and[facility] EHR Incentive Program,which states Providers who transition their patient to another setting of careor provider of care or refers their patient to another provider of care shouldprovide summary care record for each transition of care or referral. [facility] Allergies No known active allergies Medications No known medications Social History Tobacco Use Types Packs/Day Years Used Date Smoking Tobacco: Never Assessed Comments Unknown Sex and Gender Information Value Date Recorded Sex Assigned at Not on file Legal Sex Female 8:57 AM CDT Gender Identity Not on file Sexual Orientation Not on file Plan of Treatment Health Maintenance Due Date Last Done Comments Medicare Annual Wellness Visit 1945 DTaP/Tdap/Td Vaccine (1 - Tdap) 1962 Pneumococcal Vaccine 50+ Yrs (1 of 1 - PCV) 1993 Zoster/Shingles Vaccine (1 of 2) 1993 Dexa 2008 RSV Vaccine (1 - 1-dose 75+ series) 2018 COVID-19 Vaccine ( - 2023-2 5 season) 2025 Influenza Vaccine (#1) 2025 HepA Vaccine Aged Out No longer eligi ble based on patient's age to complete this topic HepB Vaccine Aged Out No longer eligi ble based on patient's age to complete this topic Hib Vaccine Aged Out No longer eligi ble based on patient's age to complete this topic MCV4 Vaccine Aged Out No longer eligi ble based on patient's age to complete this topic Meningococcal B Vaccine Aged Out No l onger eligible based on patient's age to complete this topic Insurance MEDICARE MANAGED CARE [facility]
--- OUTSIDE RECORDS SUMMARY | 2025-03-17 15:30 | XMS_ITS | Clinical Summary ---
Author Organization [facility] Address [address] [address] Phone Care Team Providers Care Laser Cutter Name Role Phone Elsewhere, Pcp Primary Care Provider Unavailabl e Allergies No known active allergies Medications mirtazapine (REMERON) 30 MG tablet Take 30 mg by mouth at bedtime. Active Multiple Vitamins-Minerals (PX COMPLETE SENIOR MULTIVITS) Tab Take by mouth. Activ e Fish Oil Oil by Does not apply route. Active Vitamin D, Cholecalciferol, 1000 UNITS Tab Take 2,000 mg by mouth. Active Vilazodone HCl (VIIBRYD OR) Take by mouth at bedtime. Active carbidopa-levodopa (PARCOPA) 10-100 MG Tablet Disintegrating Take 1 Tab by mouth three times a day. 11/17/19 19 Active NEW DRUGIndications:gu i pui from accupuncturist 1 Each by Does not apply route. Indications: jyoti pui from accupuncturist Active Active Problems No known active problems Social History Tobacco Use Types Packs/Day Years Used Date Smoking Tobacco: Never Smokeless Tobacco: Never PHQ-2 Answer Date Recorded PHQ-2 Score 3 01/04/2019 Comments No Sex and Gender Information Value Date Recorded Sex Assigned at Not on file Legal Sex Female 7:40 PM CDT Gender Identity Not on file Sexual Orientation Not on file Last Filed Vital Signs Vital Sign Reading Time Taken Comments Blood Pressure 137/82 01/04/2019 2:48 PM CDT Pulse 80 01/04/2019 2:48 PM CDT Temperature 36.9 C (98.4 F) 01/04/2019 2:48 PM CDT Respiratory Rate 24 01/04/2019 2:48 PM CDT Oxygen Saturation 97% 01/04/2019 2:48 PM CDT Inhaled Oxygen Concentration - - Weight 48.3 kg (106 lb 6.4 oz) 01/04/2019 2:48 PM CDT Height 152.4 cm (5') 01/04/2019 2:48 PM CDT Body Mass Index 20.78 01/04/2019 2:48 PM CDT Plan of Treatment Health Maintenance Due Date Last Done Comments PERTUSSIS (Standing Order) 1962 TETANUS (Standing Order) 1962 Pneumococcal Vaccine: 50+ yr s (Standing Order) (1 of 1 - PCV) 1993 Shingrix (Zoster recombinant ) vaccine (Standing Order) (1 of 2) 1993 DXA,FEMALES AGE 65 OR GREATER 2008 RSV Vaccination (60+ yrs) (Abrysvo/Arexvy) (1 - 1-dose 75+ series) 2018 COVID-19 Vaccine (2 - 2024-2 6 season) 2025 07/07/2020 Influenza Vaccine Seasonal (Standing Order) (#1) 2025 HPV Vaccine (Standing Order) Aged Out No longer eligible based on patient's age to complete this topic Hepatitis B Vaccine (Standin g Order) Aged Out No longer eligible b ased on patient's age to complete this topic Insurance [place] [employer] BLUE MEDICARE COST PART A&B Care Teams Laser Cutter Relationship Specialty Start Date End Date Elsewhere, Pcp PCP - General 10/25/14
--- OUTSIDE RECORDS SUMMARY | 2025-03-17 15:30 | XMS_ITS | CCD ---
Author Name Interface, [id number] lity Address [facility] [address] [address] [facility] Address [facility] [address] [address] Reason for Visit Social History Date Name Value 01/14/2025 Sex Female
--- OUTSIDE RECORDS SUMMARY | 2025-03-17 15:30 | XMS_ITS | Clinical Summary ---
Author Organization [facility] Address [address] [place] [id number] Care Team Providers Care Turf Manager Name Role Phone ClevelandNikkieJovan W Unavailable [phone] Service, Emma Katz MD Unavailable Un available Priscila Carter Unavailable [phone] Shaina Perry MD Primary Care Provider [phone] Allergies No known active allergies Medications acetaminophen (Q-PAP) 500 mg tablet Take 500 [...] by mouth once daily. Active lactobac cmb #4-[id number]-rzbrgumxkq (PROBIOTIC & ACIDOPHILUS) 300-250 million cell-mg cap Take 1 tablet by mouth once daily. 0 015 Active rivastigmine tartrate (EXELON) 1.5 mg capsuleIndication s:Major neurocognitive disorder due to Alzheimer's disease, without behavioral disturbance (HC) Take 1 Capsule (1.5 mg) by mouth two times daily with meals. Prescribed by neurologist, Dr. Goins 023 Active diclofenac topical (VOLTAREN) 1 % gelIndications:Ch ronic pain of both knees,Bilateral primary osteoarthritis of knee Apply 4 g topically to affected area(s) 4 times daily if needed (pain). 100 g 2 023 Active tacrolimus (PROTOPIC) 0.03 % ointmentIndicatio ns:Eyelid dermatitis, allergic/contact Apply topically to affected area(s) two times daily. 30 g 024 Active buPROPion (WELLBUTRIN SR) 100 mg Sustained-Release tabletIndications :Major depressive disorder, recurrent episode, moderate (HC),Generalized anxiety disorder Take 1 Tablet (100 mg) by mouth two times daily. Mornings and afternoons to avoid worsening sleep 180 Tablet 3 025 Active mirtazapine (REMERON) 15 mg tabletIndications :Insomnia due to mental condition,General ized anxiety disorder Takes 0.5 tablets (7.5 mg) by mouth if needed for sleep at bedtime 90 Tablet 1 025 Active Dextromethorphan HBr 15 mgIndications:Andrew or depressive disorder, recurrent episode, moderate (HC) Take 3 capsules (45 mg) by mouth 2 times daily with a bupropion tablet. 540 Capsule 025 Active memantine (NAMENDA) 5 mg tablet Take 5 mg by mouth once daily. ONE TABLET IN THE MORNING AND ONE TABLET IN THE EVENING 025 Active amLODIPine (NORVASC) 5 mg tabletIndications :Hypertension, unspecified type Take 1 Tablet (5 mg) by mouth once daily. 90 Tablet 3 025 Active cholecalciferol (VITAMIN D3) 1,000 unit tabletIndications :Osteopenia, unspecified location Take 1 Tablet (1,000 units) by mouth once daily. 90 Tablet 2 025 Active cholecalciferol (VITAMIN D3) 1,000 unit tabletIndications :Osteopenia, unspecified location Take 1 Tablet (1,000 units) by mouth once daily. 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 Generalized anxiety disorder 12/29/2022 Concussion 03/28/2022 Partial thickness burn of hand 03/28/2022 Major neurocognitive disorde r due to Alzheimer's disease, without behavioral disturbance 10/07/2021 Status post placement of implantable loop record er 02/13/2021 Overview (02/13/2021): Indication for ILR: Syncope Primary Physician: Shaina Perry MD Requesting Provider: Khoa Javier MD Implanting Provider: FLAKITO Cunha Consulting EP Infantry Unit Leader: Leonor Cordero MD DEVICE DATA Windows Server Specialist: Medtronic Model: [id number] Serial #: [id number] Implant Date: 01/16/2021 HOME MONITOR Windows Server Specialist: Medtronic Model: [id number] Relay [id number] Serial #: [id number] Syncope and collapse 02/13/2021 Prediabetes 12/22/2019 Learning disorder 04/13/2018 Controlled substance agreement signed 11/14/2016 Overview (11/14/2016): Controlled substance agreement for Xanax on file and signed 11/14/2016. Designated pharmacy: [facility] [phone] Prescribing physician:Emma Babcock MD. Diagnosis: CARMEN. Maureen Storey .................... 11/14/2016 9:40 AM Oral dyskinesia 03/07/2015 Overview (12/29/2022): Secondary to aripiprazole Obsessive-compulsive disorder with poor insight 02/01/2015 HTN (hypertension) 10/26/2014 High risk medications (not anticoagulants) long- term use 06/23/2014 Lower leg edema 11/15/2013 First degree AV block 09/13/2013 RBBB 09/13/2013 Mixed hyperlipidemia 08/01/2011 Rectocele/ Cystocele/ Fecal Incontinence 012 Overview (07/22/2011): Grade 4 Herpes zoster without mention of complication Osteopenia 07/26/2010 Insomnia due to mental condition 06/29/2007 Incontinence of feces 06/29/2007 Overview (02/15/2010): Inactive ICD-9 code replaced with correct active ICD-9. Display name retained. Unspecified urinary incontinence 06/29/2007 Major depressive disorder, recurrent episode, mo derate 11/17/2006 Overview (05/19/2014): Psych hx: Many trials-- Zoloft Effexor Remeron Paxil Celexa Resolved Problems Problem Noted Date Diagnosed Date Resolved Date Oral dyskinesia 07/20/2023 07/20/2023 Dementia without behavioral disturbance 08/21/2020 10/07/2021 Anxiety 04/13/2018 10/07/2021 Lipid screening 01/31/2016 02/17/2017 Lipid screening 01/31/2016 02/17/2017 Generalized anxiety disorder 01/19/2015 10/07/2021 CARMEN (generalized anxiety disorder) 03/22/2014 10/07/2021 Cognitive disorder 04/26/2012 Overview (04/26/2012): Cognitive impairment; possibly baseline (s/p neuropsych testing 02/26, no clear evidence of dementia at the time), monitoring Mild cognitive impairment 12/02/2011 Pain in limb 06/29/2007 10/29/2021 Overview (06/29/2007): 05/2006- seen by DR. Jamarcus guevara at BLOOD Encounters Date Type Department Care Team Description 02/27/2025 Refill [facility] [address] [facility] [place] [address] Shaina Perry MD Refill Request (Cholecalciferol) 02/03/2025 9:10 AM CDT Office Visit [facility] [address] [facility] [place] [address] Shaina Perry MD Medicare ANNUAL (subsequent) Visit (79 year old); Knee Pain/problem 02/02/2025 7:30 AM CDT Orders Only [facility] [address] [facility] [place] [address] Lab, [facility] 02/02/2025 Travel 12/30/2024 10:00 AM CDT Office Visit [facility] [address] [place] [address] Fareed Bethea MD Medication Management 12/30/2024 Travel 12/18/2024 Refill [facility] [address] [place] [address] Fareed Bethea MD Refill Request (Dextromethorphan Hbr) from Last 3 Months Immunizations Immunization Administration Dates Next Due COVID-19 VACCINE SPIKEVAX (M ODERNA 50MCG/0.5ML) 12YO+ PFS 02/02/2024,03/05/2023 COVID-19 vaccine (Pfizer-Bio NTech 30mcg/0.3mL) PF, MDV 07/28/2020,07/28/2020,07/07/2020 Influenza A (H1N1), Inactivated 06/29/2009 Influenza A (H1N1), Inactiva libra (Age >=3 Years) 06/29/2009 Influenza Virus, Unspecified 03/20/2013 Influenza, High-dose Inactivated 019,03/22/2018,02/26/2016,03/24 Influenza, High-dose Quadriv alent Inactivated 02/27/2021,04/01/2020 Influenza, IIV3 (Age >=3 years) 03/20/2013,03/18,03/18/2007 Influenza, Inactivated AIIV4 (Age 65+ Years) Preserv Free 03/05/2023,01/23/2022 Influenza, Inactivated IIV3 (Age 65+ Years) Preserv Free 02/02/2024,03/10/2017 Pneumococcal Poly,23-Valent (Pneumovax) 03/20/2013 Pneumococcal conj 13-Valent (Prevnar 13) 08/23/2014 RSV, Recombinant ADJ Reconst ituted (Arexvy 120MCG/0.5mL) 05/22/2024 Td (Age >=7 Years) 05/30/1999 Td, Preservative Free (age >= 7 Years) 0 Tdap 08/18/2012 Zoster (Shingrix-RZV, recombinant) 12/29/2019 Zoster [...] PHQ-2 Answer Date Recorded PHQ-2 TOTAL SCORE 4 02/03/2025 Social Connections Answer Date Recorded Do you often feel lonely or isolated from those around you? 0 02/03/2025 Alcohol Use Answer Date Recorded How often do you have a drink containing alcohol ? 0 02/03/2025 How many drinks containing a lcohol do you have on a typical day when you are drinking? 0 02/03/2025 How often do you have five or more drinks on one occasion? 0 02/03/2025 Financial Resource Strain Answer Date R ecorded Difficulty of Paying Living Expenses 3 02/03/2025 Difficulty of Paying Living Expenses Not on file 02/03/2025 Food Insecurity Answer Date Recorded Do you worry your food will run out before you are able to buy more? 1 02/03/2025 Transportation Needs Answer Date Record ed Does lack of transportation keep you from medica l appointments? 1 02/03/2025 Does lack of transportation keep you from work, meetings or getting things that you need? 1 02/03/2025 Housing Stability Answer Date Recorded What is your housing situation today? 1 02/03/2025 Utilities Answer Date Recorded Do you have trouble paying f or utilities (for example, heat, electricity, water, phone)? 1 02/03/2025 Education Answer Date Recorded What is the highest level of school you have completed or the highest degree you have received? High school graduate 10/07/2021 Comments No Sex and Gender Information Value Date Recorded Sex Assigned at Female 03/25/2021 11:12 PM HARNESS PULLER Legal Sex Female 5:20 AM HARNESS PULLER Gender Identity Female 03/25/2021 11:12 PM HARNESS PULLER Sexual Orientation Straight 03/25/2021 11 :12 PM HARNESS PULLER Occupation Industry Job Start Date Job End Date Retired Not on file Not on file Not on file Obstetrics History Para Term AB IAB SAB Ectopic Multiple Livin g Live Births 9 8 8 1 1 8 Date Outcome GA Total Labor Labor/2nd/3rd Weight Sex Type Anes PTL Renita A1 A5 Name Clin Term Term Term Term Term Term Term Term SAB Last Filed Vital Signs Vital Sign Reading Time Taken Comments Blood Pressure 138/72 02/03/2025 10:26 AM CDT Pulse 101 02/03/2025 9:27 AM CDT Temperature 37.6 C (99.6 F) 12/17/2023 8:08 AM CDT Respiratory Rate 18 01/16/2021 1:30 PM CDT Oxygen Saturation 97% 02/03/2025 9:27 AM CDT Inhaled Oxygen Concentration - - Weight 52.6 kg (116 lb) 02/03/2025 9:27 AM CDT Height 147 cm (4' 9.87) 02/03/2025 9:27 AM CDT Body Mass Index 24.35 02/03/2025 9:27 AM CDT Plan of Treatment Upcoming Encounters Date Type Department Care Team (Late st Contact Info) Description 03/23/2025 10:20 AM HARNESS PULLER Office Visit [facility] [address] [place] [address] Charlie Yu MD [address] [place] [address] 04/10/2025 Cardiac Device Check [facility] [place] [facility] [place] [phone] 12/18/2025 9:00 AM CDT Office Visit [facility] [address] [place] [address] Fareed Bethea MD [address] [place] [address] Health Maintenance Due Date Last Done Comments Zoster (shingles) series for age 50+ (3 of 3) 02/23/2020 12/29/2019, 11/15/2013 Tetanus booster 08/18/2022 08/18/2012, 06/18, 05/30/1999 Influenza Vaccine (#1) 2025 , 03/05/2023, 01/23/2022, Additional history exists BMI (ht and wt on same day) for age 18+ 02/03/2026 02/03/2025, 02/02/2024, 11/26/2023, Additional history exists Depression screening for age 12+ 02/03/2026 02/03/2025, 12/30/2024, 02/03/2024, Additional history exists Medicare Wellness for age 65+ 02/04/2026 02/03/2025, 02/02/2024, 01/27/2023, Additional history exists Pneumococcal series for age 50+ Completed 08/23/2014, 03/20/2013 DEXA/DXA scan for age 65+ Completed 2017, 08/24/2012, 07/26/2010 RSV vaccine for adults or Completed 05/22/2024 Hepatitis B series for 19+ Aged Out N o longer eligible based on patient's age to complete this topic Procedures Procedure Name Priority Date/Time Associated Diagnosis Comments CBC WITH AUTO DIFFERENTIAL Routine 02/02/2025 7:21 AM CDT HTN (hypertension) LIPID PANEL W REFLEX MEASURED LDL Routine 02/02/2025 7:21 AM CDT Mixed hyperlipidemia HEMOGLOBIN A1C Routine 02/02/2025 7:21 AM CDT Prediabetes BASIC METABOLIC PANEL Routine 02/02/2025 7:21 AM CDT Prediabetes HTN (hypertension) CBC WITH AUTO DIFFERENTIAL Routine 02/02/2025 7:21 AM CDT HTN (hypertension) XR DXA BONE DENSITY 2 SITES AXIAL Routine 09/17/2017 9:09 AM CDT Menopause from Last 3 Months or Most Recently Relevant to Health Maintenance Results * CBC WITH AUTO DIFFERENTIAL (02/02/2025 7:21 AM CDT) WHITE BLOOD CELL COUNT 6.9 3.8 - 10.8 Thousand/u L 02/03/2025 4:41 AM CDT [facility] RED BLOOD CELL COUNT 4.53 3.80 - 5.10 Million/uL 02/03/2025 4:41 AM CDT [facility] HEMOGLOBIN 14.3 11.7 - 15.5 g/dL 02/03/2025 4:41 AM CDT [facility] HEMATOCRIT 42.4 35.0 - 45.0 % 02/03/2025 4:41 AM CDT [facility] MCV 93.6 80.0 - 100.0 fL 02/03/2025 4:41 AM CDT [facility] MCH 31.6 27.0 - 33.0 pg 02/03/2025 4:41 AM CDT [facility] MCHC 33.7 32.0 - 36.0 g/dL 02/03/2025 4:41 AM CDT [facility] Comment: For adults, a slight decrease in the calculated MCHC value (in the range of 30 to 32 g/dL) is most likely not clinically significant; however, it should be interpreted with caution in correlation with other red cell parameters and the patient's clinical condition. RDW 12.0 11.0 - 15.0 % 02/03/2025 4:41 AM CDT [facility] PLATELET COUNT 311 140 - 400 Thousand/u L 02/03/2025 4:41 AM CDT [facility] MPV 11.0 7.5 - 12.5 fL 02/03/2025 4:41 AM CDT [facility] NEUTROPHILS 60.8 % 02/03/2025 4:41 AM CDT [facility] LYMPHOCYTES 27.0 % 02/03/2025 4:41 AM CDT [facility] MONOCYTES 8.6 % 02/03/2025 4:41 AM CDT [facility] EOSINOPHILS 2.6 % 02/03/2025 4:41 AM CDT [facility] BASOPHILS 1.0 % 02/03/2025 4:41 AM CDT [facility] ABSOLUTE NEUTROPHILS 4195 1500 - 7800 cells/uL 02/03/2025 4:41 AM CDT [facility] ABSOLUTE LYMPHOCYTES 1863 850 - 3900 cells/uL 02/03/2025 4:41 AM CDT [facility] ABSOLUTE MONOCYTES 593 200 - 950 cells/uL 02/03/2025 4:41 AM CDT [facility] ABSOLUTE EOSINOPHILS 179 15 - 500 cells/uL 02/03/2025 4:41 AM CDT [facility] ABSOLUTE BASOPHILS 69 0 - 200 cells/uL 02/03/2025 4:41 AM CDT [facility] Blood BLOOD SPECIMEN / Unknown [facility] / Unknown 02/02/2025 7:21 AM CDT 02/02/2025 7:21 AM CDT Shaina Perry MD HEMATOLOGY Final Resul t Performing Organization Address [facility] Co de Phone Number [facility] [address] [phone], * (ABNORMAL) HEMOGLOBIN A1C (02/02/2025 7:21 AM CDT) HEMOGLOBIN A1C 6.0(H) <5.7 % 02/03/2025 5:18 AM CDT [facility] Comment: For someone without known diabetes, a hemoglobin A1c value between 5.7% and 6.4% is consistent with prediabetes and should be confirmed with a follow-up test. For someone with known diabetes, a value <7% indicates that their diabetes is well controlled. A1c targets should be individualized based on duration of diabetes, age, comorbid conditions, and other considerations. This assay result is consistent with an increased risk of diabetes. Currently, no consensus exists regarding use of hemoglobin A1c for diagnosis of diabetes for children. Blood BLOOD SPECIMEN / Unknown [facility] / Unknown 02/02/2025 7:21 AM CDT 02/02/2025 7:21 AM CDT Shaina Perry MD CHEMISTRY Final Resul t Performing Organization Address [facility] Co de Phone Number [facility] [address] [phone], * (ABNORMAL) LIPID PANEL W REFLEX MEASURED LDL (02/02/2025 7:21 AM CDT) CHOLESTEROL, TOTAL 284(H) <200 mg/dL 02/03/2025 5:01 AM CDT [facility] TRIGLYCERIDES 169(H) <150 mg/dL 02/03/2025 5:01 AM CDT [facility] HDL CHOLESTEROL 74 > OR = 50 mg/dL 02/03/2025 5:01 AM CDT [facility] NON HDL CHOLESTEROL 210(H) <130 mg/dL (calc) 02/03/2025 5:01 AM CDT [facility] Comment: For patients with diabetes plus 1 major ASCVD risk factor, treating to a non-HDL-C goal of <100 mg/dL (LDL-C of <70 mg/dL) is considered a therapeutic option. CHOL/HDLC RATIO 3.8 <5.0 (calc) 02/03/2025 5:01 AM CDT [facility] LDL-CHOLESTEROL 178(H) mg/dL (calc) 02/03/2025 5:01 AM CDT [facility] Comment: Reference range: <100 Desirable range <100 mg/dL for primary prevention; <70 mg/dL for patients with CHD or diabetic patients with > or = 2 CHD risk factors. LDL-C is now calculated using the Pacheco calculation, which is a validated novel method providing better accuracy than the Friedewald equation in the estimation of LDL-C. Arya SS et al. FELICIANO. 2013;310(19): 9812-4522 (http://education.Sunnyloft.Giggle/faq/SDG606) Blood BLOOD SPECIMEN / Unknown [facility] / Unknown 02/02/2025 7:21 AM CDT 02/02/2025 7:21 AM CDT us Shaina Perry MD CHEMISTRY Final Resul t [facility] [address] [phone], * (ABNORMAL) BASIC METABOLIC PANEL (02/02/2025 7:21 AM CDT) SODIUM 141 135 - 146 mmol/L 02/03/2025 5:01 AM CDT [facility] POTASSIUM 4.8 3.5 - 5.3 mmol/L 02/03/2025 5:01 AM CDT [facility] CARBON DIOXIDE 31 20 - 32 mmol/L 02/03/2025 5:01 AM CDT [facility] GLUCOSE 109(H) 65 - 99 mg/dL 02/03/2025 5:01 AM CDT [facility] Comment: Fasting reference interval For someone without known diabetes, a glucose value between 100 and 125 mg/dL is consistent with prediabetes and should be confirmed with a follow-up test. CALCIUM 9.8 8.6 - 10.4 mg/dL 02/03/2025 5:01 AM CDT [facility] CREATININE 1.01(H) 0.60 - 0.95 mg/dL 02/03/2025 5:01 AM CDT [facility] BUN/CREATININE RATIO 26(H) 6 - 22 (calc) 02/03/2025 5:01 AM CDT [facility] EGFR 56(L) > OR = 60 mL/min/1. 73m2 02/03/2025 5:01 AM CDT [facility] UREA NITROGEN (BUN) 26(H) 7 - 25 mg/dL 02/03/2025 5:01 AM CDT [facility] ELECTROLYTE BALANCE 8 7 - 17 mmol/L (calc) 02/03/2025 5:01 AM CDT [facility] CHLORIDE 102 98 - 110 mmol/L 02/03/2025 5:01 AM CDT [facility] Blood BLOOD SPECIMEN / Unknown [facility] / Unknown 02/02/2025 7:21 AM CDT 02/02/2025 7:21 AM CDT us Shaina Perry MD CHEMISTRY Final Resul t [facility] [address] [phone], * XR DXA BONE DENSITY 2 SITES AXIAL (09/17/2017 9:09 AM CDT) Anatomical Region Laterality Modality Spine, HIPS, HIPL, HIPR Other us Sommer Long NP DEXA F inal Result from Last 3 Months or Most Recently Relevant to Health Maintenance Insurance MEDICARE PART A HB ONLY MEDICARE PART B HB ONLY [employer] BLUE PB ONLY [employer] BLUE HB ONLY * Guarantor: Julia Chakraborty Uzair Account Type Relation to Patient Date of Phone Billing Address [facility] 1945 ([place]) [address] [place] [address] [facility] [employer] [place] [employer] Advance Directives Documents on File Type Date Recorded Patient Beef Cattle Farm Manager Expl anation Power of Duct Layer Helper 09/20/2008 [facility], POWER OF SDET, 09/20/2008 * Full Code (Latest Code Status [...] Comments Code Status Discussion: Discussed Care Teams Turf Manager Relationship Specialty Start Date End Date Shaina Perry MD [address] [place] [address] PCP - General Family Practice 09/20/18 Jovan Guthrie [address] [place] [address] Back Maker 08/19/13 Service, Emma Katz MD [address] [place] [address] Psychiatry 09/04/15 Priscila Carter L Ac [address] [place] [address] Check Airman 09/04/16
--- NOTE | 2025-03-17 16:06 | CRLHL7_ITS ---
For Patients: As a result of the Century Cures Act, medical imaging exams and procedure reports are released immediately into your electronic medical record. You may view this report before your referring provider. If you have questions, please contact your health care provider. INDICATION: ALTERED MENTAL STATUS TECHNIQUE: CT of the head was performed without IV contrast. COMPARISON: 11/16/2023. FINDINGS: Parenchyma: No acute hemorrhage, infarction, or mass. Moderate confluent periventricular white matter hypoattenuation is nonspecific and is favored to represent chronic small vessel ischemic disease. Ventricles and extra-axial spaces: Mild to moderate involutional changes. Visualized paranasal sinuses: Clear. Mastoid air cells: Clear. Bones: No focal abnormality. Additional comment: None. IMPRESSION: No acute intracranial abnormality. Please note that all CT scans at this facility use dose modulation, iterative reconstruction, and/or weight-based dosing when appropriate to reduce radiation dose to as low as reasonably achievable. Dictated by Carroll Lee MD @ 03/17/2025 4:59:40 PM (Electronically Signed)
--- NOTE | 2025-03-17 16:07 | ED.WEAKNESS ---
HPI - Weakness General Date Seen: 03/17/25 Chief complaint: Weakness Stated complaint: Weakness Time Seen by Provider: 03/17/25 15:59 Source: patient Mode of arrival: ambulatory Limitations: no limitations History of Present Illness HPI Narrative: Patient is an 79-year-old female with a history of dementia, depression presenting to the emergency department for weakness. She is here with her daughter states that the patient has with her in house and when the came into the house the patient was telling him that she feels weird and needs to come to the emergency department. The daughter states the patient's dementia is mild to moderate and is typically able answer questions appropriately. She overall she does not talk much though. The daughter thinks the patient seems slightly off compared to her baseline. When asked the patient what symptoms she is having she does states she feels weird. Eventually she was able tell me she feels weaker than normal which her daughter also states the patient seems slightly weaker than normal. Patient denies chest pain, shortness of breath, vision changes, numbness, upper or lower extremity weakness, abdominal pain, diarrhea, constipation, dysuria, polyuria, headache, lightheadedness, dizziness. She states she is feels asymptomatic other than she feels weird. Her daughter does state the patient does not eat or drink much in while she did eat normally this morning she could very well be dehydrated. Patient does wear depends for incontinence and has had somewhat similar symptoms in the past with UTIs. Related Data Home Medications ?Medication ?Instructions ?Recorded ?Confirmed bupropion HCl 100 mg tablet,12 hr 100 mg PO BID 07/20/23 11/16/23 sustained-release cholecalciferol (vitamin D3) 25 25 mcg PO DAILY 07/20/23 11/16/23 mcg (1,000 unit) tablet dextromethorphan HBr 15 mg capsule 45 mg PO BID 07/20/23 11/16/23 mirtazapine 15 mg tablet 7.5 mg PO HS PRN insomnia 07/20/23 11/16/23 rivastigmine tartrate 3 mg capsule 3 mg PO BID 07/20/23 11/16/23 Previous Rx's ?Medication ?Instructions ?Recorded amlodipine 5 mg tablet 5 mg PO DAILY #30 tabs 07/22/23 Allergies Allergy/AdvReac Type Severity Reaction Status Date / Time No Known Drug Allergies Allergy Verified 11/16/23 10:45 Review of Systems Status of ROS: Reports: 10 or more systems reviewed and unremarkable except as noted in History and below PFSH PFS Medical History HTN (hypertension) ?I10 - Essential (primary) hypertension (ICD-10) Implantable loop recorder present ?Z95.818 - Presence of other cardiac implants and grafts (ICD-10) Dysequilibrium ?R42 - Dizziness and giddiness (ICD-10) Dementia ?F03.90 - Unspecified dementia, unspecified severity, without behavioral disturbance, psychotic disturbance, mood disturbance, and anxiety (ICD-10) Depression ?F32.A - Depression, unspecified (ICD-10) Anxiety ?F41.9 - Anxiety disorder, unspecified (ICD-10) Surgical History H/O sinus surgery ?Z98.890 - Other specified postprocedural states (ICD-10) History of tonsillectomy ?Z90.89 - Acquired absence of other organs (ICD-10) Social History What is your current living situation?: I presently have a place to live Problems where you live: no known problems Problems where you live details: no known problems In the past 12 months, utilities in danger of being shut off: no In past 12 months, lack of transportation kept you from medical appts, meetings, work, or getting things needed for daily living: no In the past 12 mos, have been you worried that your food would run out before you had money to buy more?: never true In the past 12 mos, the food you bought just didn't last and you didn't have money to buy more?: never true Smoking Status: Never smoker Do you use any of these nicotine containing products: None Second hand tobacco smoke exposure: Yes How often do you have a drink containing alcohol: never How often do you have six or more drinks on one occasion: Never AUDIT-C Alcohol total score: 0 Non-prescribed substance use: denies use Caffeine: Yes How often does anyone, including family, friends and others, physically hurt you: never How often does anyone, including family, friends and others, insult or talk down to you: never How often does anyone, including family, friends and others, threaten you with harm: never How often does anyone, including family, friends and others, scream or curse at you: never service: No Exam Narrative: Exam Narrative: Const: Well-nourished, Well-developed, in no distress Eyes: PERRL, no conjunctival injection, and symmetrical lids HENT: Atraumatic external nose and ears. Moist mucous membranes. Neck: Symmetric, trachea midline, No thyromegaly. CVS: RRR, No murmurs or gallops. Peripheral pulses 2+ and equal in all extremities RESP: Unlabored respiratory effort. Clear to auscultation bilaterally. GI: Nontender/Nondistended, No rebound or guarding. MSK:Extremities w/o deformity, Normal Active ROM Skin: Warm, Dry. No rashes or lesions. Neuro: Normal Muscle tone, No focal neurological deficits. Psych: Awake, Alert, & Oriented x3. Appropriate mood and affect. Const: Vital Signs, click to edit/add: Vital Signs - 24 hr 03/17/25 15:36 03/17/25 16:36 03/17/25 16:52 Temperature 97.2 F L Pulse Rate 78 77 Pulse Rate [Right Radial] 93 Respiratory Rate 19 18 Blood Pressure Blood Pressure [Ri ght Upper Arm] 138/83 Pulse Oximetry 100 99 99 Oxygen Delivery Me thod Room Air 03/17/25 17:00 03/17/25 17:02 03/17/25 17:15 Temperature Pulse Rate 84 81 82 Pulse Rate [Right Radial] Respiratory Rate 18 19 18 Blood Pressure 166/81 H Blood Pressure [Ri ght Upper Arm] Pulse Oximetry 99 99 99 Oxygen Delivery Me thod 03/17/25 17:40 03/17/25 17:43 03/17/25 17:45 Temperature Pulse Rate 89 79 80 Pulse Rate [Right Radial] Respiratory Rate 16 16 19 Blood Pressure 166/85 H Blood Pressure [Ri ght Upper Arm] Pulse Oximetry 96 98 98 Oxygen Delivery Pa thod 03/17/25 18:00 03/17/25 18:15 03/17/25 18:30 Temperature Pulse Rate 83 Pulse Rate [Right Radial] Respiratory Rate 19 16 14 Blood Pressure Blood Pressure [Ri ght Upper Arm] Pulse Oximetry 99 Oxygen Delivery Me thod 03/17/25 18:45 03/17/25 18:48 03/17/25 19:00 Temperature Pulse Rate 96 102 H Pulse Rate [Right Radial] Respiratory Rate 18 18 19 Blood Pressure 173/91 H Blood Pressure [Ri ght Upper Arm] Pulse Oximetry 98 97 Oxygen Delivery Me thod 03/17/25 19:01 03/17/25 19:15 03/17/25 19:30 Temperature Pulse Rate 105 H 105 H 105 H Pulse Rate [Right Radial] Respiratory Rate 18 16 18 Blood Pressure 162/93 H Blood Pressure [Ri ght Upper Arm] Pulse Oximetry 97 96 96 Oxygen Delivery Me thod 03/17/25 19:31 03/17/25 19:45 03/17/25 20:00 Temperature Pulse Rate 98 99 98 Pulse Rate [Right Radial] Respiratory Rate 18 16 20 Blood Pressure 148/85 H Blood Pressure [Ri ght Upper Arm] Pulse Oximetry 97 95 96 Oxygen Delivery Me thod 03/17/25 20:01 03/17/25 20:15 03/17/25 20:30 Temperature Pulse Rate 99 96 94 Pulse Rate [Right Radial] Respiratory Rate 17 16 18 Blood Pressure 148/94 H Blood Pressure [Ri ght Upper Arm] Pulse Oximetry 95 95 96 Oxygen Delivery Me thod 03/17/25 20:43 03/17/25 20:45 Temperature Pulse Rate 99 96 Pulse Rate [Right Radial] Respiratory Rate 18 16 Blood Pressure 164/87 H Blood Pressure [Ri ght Upper Arm] Pulse Oximetry 96 96 Oxygen Delivery Me thod Course Vital Signs Vital signs: Initial Vital Signs Temperature 97.2 F L 03/17/25 15:36 Temperature Source Temporal Artery Scan 03/17/25 15:36 Pulse Rate 93 03/17/25 15:36 Pulse Rhythm Regular 03/17/25 15:36 Blood Pressure 138/83 03/17/25 15:36 Blood Pressure Mean 101 03/17/25 15:36 Pulse Oximetry 100 03/17/25 15:36 Oxygen Delivery Method Room Air 03/17/25 15:36 Vital Signs Temperature 97.2 F L 03/17/25 15:36 Pulse Rate 93 03/17/25 15:36 Blood Pressure 138/83 03/17/25 15:36 Pulse Oximetry 100 03/17/25 15:36 Oxygen Delivery Method Room Air 03/17/25 15:36 Temperature 97.2 F L 03/17/25 15:36 Pulse Rate 96 03/17/25 20:45 Respiratory Rate 16 03/17/25 20:45 Blood Pressure 164/87 H 03/17/25 20:43 Pulse Oximetry 96 03/17/25 20:45 Oxygen Delivery Method Room Air 03/17/25 15:36 Medications Administered Medications: Generic Name Dose Route Start Last Admin Trade Name Freq PRN Reason Stop Dose Admin Sodium Chloride 500 mls @ 100 mls/hr 03/17/25 19:09 03/17/25 19:22 0.9 % Sodium Chloride 500 Ml IV 03/18/25 00:08 100 mls/hr .Q5H RANDA Administration Discontinued Medications Generic Name Dose Route Start Last Admin Trade Name Freq PRN Reason Stop Dose Admin Lactated Ringer's 1,000 mls @ 1,000 mls/hr 03/17/25 16:05 03/17/25 17:55 Lactated Ringers 1000 Ml IV 03/17/25 17:04 Infused .Q1H ONE Infusion Sodium Chloride 500 mls @ 1,000 mls/hr 03/17/25 17:27 03/17/25 19:22 0.9 % Sodium Chloride 500 Ml IV 03/17/25 17:56 Infused .Q30M RANDA Infusion Ceftriaxone Sodium 1 gm/ 100 mls @ 200 mls/hr 03/17/25 18:21 03/17/25 19:23 Sodium Chloride IVPB 03/17/25 18:22 Infused ONCE ONE Infusion MDM - Weakness MDM Narrative Medical decision making narrative: Patient is an 79-year-old female presenting to the emergency department for weakness and slightly more confusion than normal. The differential diagnosis of generalized weakness is broad and includes infection, electrolyte abnormalities, ACS, arrhythmia, hypoglycemia, electrolyte abnormality, respiratory failure, anemia, hypothyroidism, dehydration, medication induced etc. order CT scan of her head. Will give her fluids for possible dehydration. Will also check CBC, EKG, troponin, magnesium, viral swabs, urinalysis. Patient's head CT evaluated by myself and the radiologist shows no acute concerning abnormalities. Her lab work returned with a white count of 12.08. Between that and her heart rate of 93 she does meet SIRS criteria. Blood cultures and lactate will be ordered. Will give her a total of 1500 mL of fluid per sepsis protocol. CMP shows no concerning abnormalities. EKG and troponin showed no concerning findings. Her lactate returned elevated 4.0. This could be infection but could also be related to dehydration. Repeat lactate was 2.3. Nursing staff does state patient's veins look bigger in patient very well could have been dehydrated. Will recheck lactate again in another 2 hours and in the meantime give another 500 mL of fluid. Repeat CBC shows that her white blood cell count went down while her hemoglobin platelets state all to the even study not believe this white blood cell count went down due to dehydration specifically. Unfortunately her lactate went back up to 2.5 at this time she does meet sepsis criteria I do believe she needs to be admitted to the hospitalist service. She also has intermittent tachycardia in the 100s. SIRS criteria: Leukocytosis, tachycardia Blood cultures ordered: Yes Lactate: 4.0-> 2.3-> 2.5 Antibiotics Given: Ceftriaxone 30 milliliters/kilogram of Fluids Given: Yes Sepsis Source: UTI Severe Sepsis/Septic Shock: Now Pressors Given: Now Steroids Given for Persistent Hypotension: Now Sepsis Reassessment: Heart: RRR, no murmurs, normal S1 and S2 Lungs: Normal work of breathing, clear to auscultation bilaterally Pulses: +2 in all 4 extremities Capillary refill: Brisk, less than 2 seconds Skin: Not mottled Lab Data Labs: Lab Results 03/17/25 03/17/25 03/17/25 Range/Units 16:06 16:20 16:25 WBC 12.08 H (4.50-11.00) K/uL RBC 4.48 (4.00-5.20) m/uL Hgb 13.9 (12.0-16.0) gm/dL Hct 41.9 (33.0-51.0) % MCV 94 (80-100) fL MCH 31 (26-34) pg MCHC 33 (32-36) gm/dL RDW Coeff of Anu 12.0 (11.5-15.5) % Plt Count 238 (140-440) K/uL Neut % (Auto) 88.6 H (42.0-72.0) % Lymph % (Auto) 6.3 L (20-44) % [place] % (Auto) 3.4 (0.0-11.0) % Eos % (Auto) 0.2 (0.0-7.0) % Baso % (Auto) 0.3 (0.0-3.0) % Neut # (Auto) 10.70 H (1.7-7.0) K/uL Lymph # (Auto) 0.80 L (0.90-2.90) K/uL [place] # (Auto) 0.40 (0.00-0.90) K/UL Eos # (Auto) 0.00 (0.00-0.50) K/uL Baso # (Auto) 0.00 (0.00-0.30) K/uL Abs Immat Gran (auto) 0.10 (0.00-0.30) K/uL Imm/Tot Granulo (auto) 1.2 % Sodium 138 (135-149) mmol/L Potassium 3.8 (3.6-5.1) mmol/L Chloride 107 (96-114) mmol/L Carbon Dioxide 24 (20-32) mmol/L Anion Gap 7 (7-15) mEq/L BUN 24 (7-30) mg/dL Creatinine 0.8 (0.5-1.5) mg/dL Estimated Creat Clear 31.69 Estimated GFR 74 ml/min Glucose 214 H (60-115) mg/dL Lactate 4.0 H (0.5-1.9) mmol/L Calcium 9.6 (8.4-10.6) mg/dL Magnesium 1.5 (1.5-2.6) mg/dL Total Bilirubin 0.4 (0.1-1.5) mg/dL AST 25 (12-35) U/L ALT 18 (4-35) U/L Alkaline Phosphatase 67 (40-150) U/L Total Protein 7.4 (6.0-8.3) g/dL Albumin 4.3 (3.3-5.0) g/dL Urine Color Yellow (Yellow) Urine Appearance Clear (Clear) Urine pH 7.5 (5.0-8.5) Ur Specific [place] 1.015 (1.000-1.030) Urine Protein Negative (Negative) Urine Glucose (UA) Trace A (Negative) Urine Ketones Negative (Negative) Urine Blood Trace-intact A (Negative) Urine Nitrite Positive A (Negative) Urine Bilirubin Negative (Negative) Urine Urobilinogen 0.2 (0.2-1.0) Ur Leukocyte Esterase Negative (Negative) Urine RBC 0-2 (0-2) Urine WBC 0-2 (0-5) Ur Squamous Epith Cells None (None-Few) Urine Bacteria Many A (None) SARS-CoV-2 (PCR) Negative SARS-CoV-2 (Negative) Influenza Type A (PCR) Negative PCR FLU A (Negative) Influenza Type B (PCR) Negative PCR FLU B (Negative) RSV (PCR) Negative PCR RSV (Negative) Lab Acknowledgement POC Troponin I 0.00 L (0.01-0.04) ng/ml 03/17/25 03/17/25 03/17/25 Range/Units 16:41 18:40 20:38 WBC 10.65 (4.50-11.00) K/uL RBC 4.48 (4.00-5.20) m/uL Hgb 13.8 (12.0-16.0) gm/dL Hct 41.9 (33.0-51.0) % MCV 94 (80-100) fL MCH 31 (26-34) pg MCHC 33 (32-36) gm/dL RDW Coeff of Anu 11.8 (11.5-15.5) % Plt Count 270 (140-440) K/uL Neut % (Auto) 88.8 H (42.0-72.0) % Lymph % (Auto) 7.8 L (20-44) % [place] % (Auto) 2.7 (0.0-11.0) % Eos % (Auto) 0.1 (0.0-7.0) % Baso % (Auto) 0.4 (0.0-3.0) % Neut # (Auto) 9.50 H (1.7-7.0) K/uL Lymph # (Auto) 0.80 L (0.90-2.90) K/uL [place] # (Auto) 0.30 (0.00-0.90) K/UL Eos # (Auto) 0.01 (0.00-0.50) K/uL Baso # (Auto) 0.04 (0.00-0.30) K/uL Abs Immat Gran (auto) 0.02 (0.00-0.30) K/uL Imm/Tot Granulo (auto) 0.2 % Sodium (135-149) mmol/L Potassium (3.6-5.1) mmol/L Chloride (96-114) mmol/L Carbon Dioxide (20-32) mmol/L Anion Gap (7-15) mEq/L BUN (7-30) mg/dL Creatinine (0.5-1.5) mg/dL Estimated Creat Clear Estimated GFR ml/min Glucose (60-115) mg/dL Lactate 2.3 H 2.5 H (0.5-1.9) mmol/L Calcium (8.4-10.6) mg/dL Magnesium (1.5-2.6) mg/dL Total Bilirubin (0.1-1.5) mg/dL AST (12-35) U/L ALT (4-35) U/L Alkaline Phosphatase (40-150) U/L Total Protein (6.0-8.3) g/dL Albumin (3.3-5.0) g/dL Urine Color (Yellow) Urine Appearance (Clear) Urine pH (5.0-8.5) Ur Specific [place] (1.000-1.030) Urine Protein (Negative) Urine Glucose (UA) (Negative) Urine Ketones (Negative) Urine Blood (Negative) Urine Nitrite (Negative) Urine Bilirubin (Negative) Urine Urobilinogen (0.2-1.0) Ur Leukocyte Esterase (Negative) Urine RBC (0-2) Urine WBC (0-5) Ur Squamous Epith Cells (None-Few) Urine Bacteria (None) SARS-CoV-2 (PCR) (Negative) Influenza Type A (PCR) (Negative) Influenza Type B (PCR) (Negative) RSV (PCR) (Negative) Lab Acknowledgement Test Added POC Troponin I (0.01-0.04) ng/ml Imaging Data CT scan - head: Attestation: I have reviewed the pertinent imaging results. Radiologist's impression: No acute intracranial abnormality. Please note that all CT scans at this facility use dose modulation, iterative reconstruction, and/or weight-based dosing when appropriate to reduce radiation dose to as low as reasonably achievable. Dictated by Carroll Lee MD @ 03/17/2025 4:59:40 PM ECG Data Attestation: I personally reviewed and interpreted this ECG as follows: Prior ECG tracings: available for review Interpretation: Normal sinus rhythm with rate of 77 beats per minute, normal QRS, normal VT, prolonged QT interval, incomplete right bundle-branch block, no ST or T-wave abnormalities. Appears similar previous EKGs on file. Critical Care Time Critical Care Time Critical Care Time: Yes Attestation: The patient required my highest level preparedness to intervene emergently and I personally spent this critical care time directly and personally managing the patient. This critical care time included: Obtaining a history; Examining the patient; Pulse oximetry; Ordering and reviewing of studies; Arranging urgent treatment with development of a management plan; Evaluation of patients response to treatment; Frequent reassessment discussions with other providers. This critical care time was performed to assess and manage the high probability of imminent life-threatening deterioration that could result in multiorgan failure. It was exclusive of separate billable procedures and treating other patients and teaching time. Total Critical Care Time in Minutes: 35 Discharge Plan Discharge Clinical Impression: Sepsis Qualifiers: Sepsis type: sepsis due to unspecified organism Sepsis acute organ dysfunction status: unspecified Qualified Code(s): A41.9 - Sepsis, unspecified organism Urinary tract infection Qualifiers: Urinary tract infection type: site unspecified Hematuria presence: without hematuria Qualified Code(s): N39.0 - Urinary tract infection, site not specified Patient Disposition: Admitted As Inpatient Condition: Stable
--- OUTSIDE RECORDS SUMMARY | 2025-03-17 16:18 | XMS_ITS | CCD ---
Author Name Interface, [id number] lity Address [facility] [address] [address] [facility] Address [facility] [address] [address] Reason for Visit Social History Date Name Value 01/14/2025 Sex Female
--- OUTSIDE RECORDS SUMMARY | 2025-03-17 16:18 | XMS_ITS | CCD ---
Author Name Interface, [email or web address] lity Address [facility] [address] [facility] Address [facility] [address] Reason for Visit Social History Date Name Value 01/14/2025 Sex Female
[2025-03-17] MEDS: LACTATED RINGERS 1000 ML 1,000 ML IV (16:30)
[2025-03-17 16:41] LABS: Hematocrit* 41.9 % (33.0-51.0); Hemoglobin* 13.9 gm/dL (12.0-16.0); Immature Granulocytes Pct Auto 1.2 %; Mean Corpuscular HGB Conc 33 gm/dL (32-36); Mean Corpuscular Hemoglobin 31 pg (26-34); Mean Corpuscular Volume 94 fL (80-100); RDW Coefficient of Variation % 12.0 % (11.5-15.5); Red Blood Count* 4.48 m/uL (4.00-5.20); White Blood Count* 12.08 K/uL (4.50-11.00)
[2025-03-17 16:43] LABS: Immature Granulocytes Abs Auto 0.10 K/uL (0.00-0.30); Lymphocytes Absolute Auto 0.80 K/uL (0.90-2.90); Slide Review Reflex No
[2025-03-17 16:45] LABS: Troponin, Point-of-Care* 0.00 ng/ml (0.01-0.04)
[2025-03-17 16:53] LABS: Albumin* 4.3 g/dL (3.3-5.0); Chloride* 107 mmol/L (96-114); Potassium* 3.8 mmol/L (3.6-5.1); Sodium* 138 mmol/L (135-149)
[2025-03-17 16:55] LABS: Blood Urea Nitrogen* 24 mg/dL (7-30); Creatinine* 0.8 mg/dL (0.5-1.5); Est. Creatinine Clearance* 31.69; Estimated Glomerular Filt Rate 74 ml/min
[2025-03-17 16:56] LABS: Alanine Aminotransferase* 18 U/L (4-35); Alkaline Phosphatase* 67 U/L (40-150); Anion Gap 7 mEq/L (7-15); Aspartate Amino Transferase* 25 U/L (12-35); Bilirubin Total* 0.4 mg/dL (0.1-1.5); Calcium* 9.6 mg/dL (8.4-10.6); Carbon Dioxide* 24 mmol/L (20-32); Glucose* 214 mg/dL (60-115); Total Protein* 7.4 g/dL (6.0-8.3)
[2025-03-17 17:23] LABS: Lactate Sepsis w/Reflex* 4.0 mmol/L (0.5-1.9)
[2025-03-17 17:25] LABS: PCR FLU A Negative PCR FLU A (Negative); PCR FLU B Negative PCR FLU B (Negative); PCR RSV Negative PCR RSV (Negative); SARS PCR* Negative SARS-CoV-2 (Negative)
[2025-03-17] MEDS: 0.9 % SODIUM CHLORIDE 500 ML 500 ML 1000 ML IV (17:55)
[2025-03-17 18:01] LABS: Appearance Urine Clear (Clear)
[2025-03-17] MEDS: cefTRIAXone 1 GM in 0.9 % SODIUM CHLORIDE Mini-bag 100 ML IVPB (18:40)
[2025-03-17 18:43] LABS: Lactate Sepsis 2 Hour 2.3 mmol/L (0.5-1.9)
[2025-03-17] MEDS: 0.9 % SODIUM CHLORIDE 500 ML 500 ML 100 ML IV (19:22)
[2025-03-17 20:54] LABS: Hematocrit* 41.9 % (33.0-51.0); Hemoglobin* 13.8 gm/dL (12.0-16.0); Immature Granulocytes Abs Auto 0.02 K/uL (0.00-0.30); Immature Granulocytes Pct Auto 0.2 %; Mean Corpuscular HGB Conc 33 gm/dL (32-36); Mean Corpuscular Hemoglobin 31 pg (26-34); Mean Corpuscular Volume 94 fL (80-100); RDW Coefficient of Variation % 11.8 % (11.5-15.5); Red Blood Count* 4.48 m/uL (4.00-5.20); White Blood Count* 10.65 K/uL (4.50-11.00)
[2025-03-17 21:00] LABS: Lymphocytes Absolute Auto 0.80 K/uL (0.90-2.90); Slide Review Reflex No
[2025-03-17 21:38] LABS: Lactate Sepsis w/Reflex* 2.5 mmol/L (0.5-1.9)
--- NOTE | 2025-03-17 22:37 | PM.IMHP1 ---
Assessment and Plan Assessment and plan (1) Urinary tract infection: Problem comment: - abnormal urinalysis, urine culture set up, initiated ceftriaxone IV - await urine culture results Status: Acute (2) Sepsis: Problem comment: - elevated heart rate, white blood cell count, lactate, with acute cystitis has source - IV fluids, IV ceftriaxone - monitor closely Status: Acute (3) Major neurocognitive disorder due to Alzheimer's disease, without behavioral disturbance: Problem comment: Follows with Dr. Goins, [facility], and Shanta García, DNP, CLINICAL SYSTEMS EDUCATOR, TECHNICAL ILLUSTRATOR, [facility] - continue with supportive efforts Status: Acute (4) Hypertensive heart disease without heart failure: Problem comment: - transthoracic echo 07/22/2023: Normal LV chamber size, moderately increased LV chamber wall thickness, EF 58%; normal RV chamber size and systolic function; mild mitral regurgitation - monitor closely and continue with supportive treatment efforts Status: Acute Plan 1. Reviewed impression, plan, recommendations with patient and her daughter, Aida 2. Answered their questions to their satisfaction 3. They are agreeable with above stated plans and recommendations Total Time Spent Total Time Spent: 70 minutes Hospitalist- H&P: HPI History of Present Illness Date Seen: 03/17/25 Chief complaint: Weakness Narrative: Tameka Scott is a 79 year old woman who resides in private residence with her presents to the emergency department accompanied by her daughter, Aida Sethi, patient's power of attorney general for health, with concern of patient not feeling well. No specific localizing symptoms or signs per se. At baseline patient is known to have major neurocognitive disorder of Alzheimer's disease and her ability to express herself is decreased. Assessment in the emergency department of [facility] today concerning for early mild sepsis, urinary tract infection. Efforts to address this with IV ceftriaxone and IV fluids not adequate and thus patient is admitted for additional treatment, management, assessments. Review of Systems Status of ROS: Reports: 6 or more systems reviewed and unremarkable except as noted in History and below Narrative: Lives with her in a 5 bedroom firm house. Receives assistance from her and daughter and son-in-law. Usually fairly independent with her activities of daily living. Does not make phone calls. Does answer the phone. Able to do some light housekeeping. Medications are set up for her. Not driving. Not handling finances. Medical Decision Making Medical Decision Making Code Status: Full resuscitation Has patient completed a Health Care Directive: Yes During This Stay, Who Would You Like To Make Decisions For You In The Event You Are Unable To Make Them For Yourself?: Daughter, Aida Sethi, . [facility] Medical History Hypertensive heart disease without heart failure ?I11.9 - Hypertensive heart disease without heart failure (ICD-10) Congenital nonprogressive ataxia ?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6 - Rectocele (ICD-10) Bowel incontinence ?R15.9 - Full incontinence of feces (ICD-10) Bladder incontinence ?R32 - Unspecified urinary incontinence (ICD-10) Insomnia ?G47.00 - Insomnia, unspecified (ICD-10) HTN (hypertension) ?I10 - Essential (primary) hypertension (ICD-10) Implantable loop recorder present ?Z95.818 - Presence of other cardiac implants and grafts (ICD-10) Dysequilibrium ?R42 - Dizziness and giddiness (ICD-10) Depression ?F32.A - Depression, unspecified (ICD-10) Anxiety ?F41.9 - Anxiety disorder, unspecified (ICD-10) Surgical History H/O sinus surgery ?Z98.890 - Other specified postprocedural states (ICD-10) History of tonsillectomy ?Z90.89 - Acquired absence of other organs (ICD-10) Social History What is your current living situation?: I presently have a place to live Problems where you live: no known problems Problems where you live details: no known problems In the past 12 months, utilities in danger of being shut off: no In past 12 months, lack of transportation kept you from medical appts, meetings, work, or getting things needed for daily living: no In the past 12 mos, have been you worried that your food would run out before you had money to buy more?: never true In the past 12 mos, the food you bought just didn't last and you didn't have money to buy more?: never true Smoking Status: Never smoker Do you use any of these nicotine containing products: None Second hand tobacco smoke exposure: Yes How often do you have a drink containing alcohol: never How often do you have six or more drinks on one occasion: Never AUDIT-C Alcohol total score: 0 Non-prescribed substance use: denies use Caffeine: Yes How often does anyone, including family, friends and others, physically hurt you: never How often does anyone, including family, friends and others, insult or talk down to you: never How often does anyone, including family, friends and others, threaten you with harm: never How often does anyone, including family, friends and others, scream or curse at you: never service: No Meds Home Medications and Allergies Home Medications ?Medication ?Instructions ?Recorded ?Confirmed ?Type bupropion HCl 100 mg tablet,12 hr 100 mg PO BID 07/20/23 11/16/23 History sustained-release cholecalciferol (vitamin D3) 25 25 mcg PO DAILY 07/20/23 11/16/23 History mcg (1,000 unit) tablet dextromethorphan HBr 15 mg capsule 45 mg PO BID 07/20/23 11/16/23 History mirtazapine 15 mg tablet 7.5 mg PO HS PRN insomnia 07/20/23 11/16/23 History rivastigmine tartrate 3 mg capsule 3 mg PO BID 07/20/23 11/16/23 History amlodipine 5 mg tablet 5 mg PO DAILY #30 tabs 07/22/23 11/16/23 Rx Home Medication Comments: Now takes rivastigmine 4.5 mg twice daily Allergies Allergy/AdvReac Type Severity Reaction Status Date / Time No Known Drug Allergies Allergy Verified 11/16/23 10:45 Exam Narrative: Exam Narrative: Examined patient emergency department. She has 3 blankets covering her and she is complaining of being cold. Does not engage in spontaneous conversation. Answers most questions with 1-3 simple words at best. Most of her answers are on track with the conversation. No acute distress. Oriented to self and in part to place, not to time or situation. This is not new or different from her baseline according to daughter. Vision and hearing are adequate. Midline nasal septum. Dentition in fair repair. Dry buccal mucosa. Neck is supple. Midline trachea. No JVD or hepatojugular reflux. Lungs are clear to auscultation without wheezing, rhonchi, rales. Chest wall excursions are full. No CVA tenderness to percussion. Heart tones with regular rhythm, normal S1-S2, of very soft systolic murmur without gallop or rub. PMI not laterally displaced. Abdomen with active bowel sounds, soft, nontender. No organomegaly or masses. No rebound or guarding. No edema. Palpable pulses upper and lower extremities. No focal motor neurologic deficits. Standby assist with transfers and gait in the emergency department. Initial lactate 4.5, with IV fluid rehydration it is 2.3, then rechecked at 2.5. Const: Vital Signs, click to edit/add: Vital Signs - 24 hr 03/17/25 15:36 03/17/25 16:36 03/17/25 16:52 Temperature 97.2 F L Pulse Rate 78 77 Pulse Rate [Right Radial] 93 Respiratory Rate 19 18 Blood Pressure Blood Pressure [Ri ght Upper Arm] 138/83 Pulse Oximetry 100 99 99 Oxygen Delivery Me thod Room Air 03/17/25 17:00 03/17/25 17:02 03/17/25 17:15 Temperature Pulse Rate 84 81 82 Pulse Rate [Right Radial] Respiratory Rate 18 19 18 Blood Pressure 166/81 H Blood Pressure [Ri ght Upper Arm] Pulse Oximetry 99 99 99 Oxygen Delivery Me thod 03/17/25 17:40 03/17/25 17:43 03/17/25 17:45 Temperature Pulse Rate 89 79 80 Pulse Rate [Right Radial] Respiratory Rate 16 16 19 Blood Pressure 166/85 H Blood Pressure [Ri ght Upper Arm] Pulse Oximetry 96 98 98 Oxygen Delivery Me thod 03/17/25 18:00 03/17/25 18:15 03/17/25 18:30 Temperature Pulse Rate 83 Pulse Rate [Right Radial] Respiratory Rate 19 16 14 Blood Pressure Blood Pressure [Ri ght Upper Arm] Pulse Oximetry 99 Oxygen Delivery Me thod 03/17/25 18:45 03/17/25 18:48 03/17/25 19:00 Temperature Pulse Rate 96 102 H Pulse Rate [Right Radial] Respiratory Rate 18 18 19 Blood Pressure 173/91 H Blood Pressure [Ri ght Upper Arm] Pulse Oximetry 98 97 Oxygen Delivery Me thod 03/17/25 19:01 03/17/25 19:15 03/17/25 19:30 Temperature Pulse Rate 105 H 105 H 105 H Pulse Rate [Right Radial] Respiratory Rate 18 16 18 Blood Pressure 162/93 H Blood Pressure [Ri ght Upper Arm] Pulse Oximetry 97 96 96 Oxygen Delivery Me thod 03/17/25 19:31 03/17/25 19:45 03/17/25 20:00 Temperature Pulse Rate 98 99 98 Pulse Rate [Right Radial] Respiratory Rate 18 16 20 Blood Pressure 148/85 H Blood Pressure [Ri ght Upper Arm] Pulse Oximetry 97 95 96 Oxygen Delivery Me thod 03/17/25 20:01 03/17/25 20:15 03/17/25 20:30 Temperature Pulse Rate 99 96 94 Pulse Rate [Right Radial] Respiratory Rate 17 16 18 Blood Pressure 148/94 H Blood Pressure [Ri ght Upper Arm] Pulse Oximetry 95 95 96 Oxygen Delivery Me thod 03/17/25 20:43 03/17/25 20:45 Temperature Pulse Rate 99 96 Pulse Rate [Right Radial] Respiratory Rate 18 16 Blood Pressure 164/87 H Blood Pressure [Ri ght Upper Arm] Pulse Oximetry 96 96 Oxygen Delivery Me od Hospitalist - H&P: Result Labs Labs: Short CBC 03/17/25 03/17/25 Range/Units 16:25 20:38 WBC 12.08 H 10.65 (4.50-11.00) K/uL Hgb 13.9 13.8 (12.0-16.0) gm/dL Hct 41.9 41.9 (33.0-51.0) % Plt Count 238 270 (140-440) K/uL BMP 03/17/25 16:25 Sodium 138 Potassium 3.8 Chloride 107 Carbon Dioxide 24 BUN 24 Creatinine 0.8 Glucose 214 H Calcium 9.6 Liver Function 03/17/25 Range/Units 16:25 Total Bilirubin 0.4 (0.1-1.5) mg/dL AST 25 (12-35) U/L ALT 18 (4-35) U/L Alkaline Phosphatase 67 (40-150) U/L Albumin 4.3 (3.3-5.0) g/dL Urine 03/17/25 Range/Units 16:06 Urine Color Yellow (Yellow) Urine Appearance Clear (Clear) Urine pH 7.5 (5.0-8.5) Ur Specific [place] 1.015 (1.000-1.030) Urine Protein Negative (Negative) Urine Glucose (UA) Trace A (Negative) ECG ECG interpretation date: 03/17/25 Interpretation: Normal sinus rhythm Imaging CT scan - head: Radiologist's impression: No acute intracranial processes
[2025-03-17] MEDS: ENOXAPARIN 30 MG/0.3ML INJ SUBCUT (23:05)
[2025-03-18 04:05] VITALS: BP 146/90; PULSE 81; RESP 16; TEMP 36.9; O2SAT 96
--- NOTE | 2025-03-18 06:37 | PC.NURSE ---
Pt alert and oriented to self only. Afebrile. Pt denies pain, chest pain, SOB and N/V. Pt is up A1 with walker and gait belt, voiding and tolerating a regular diet. Pt slept throughout most of night. ?
[2025-03-18 06:49] LABS: Hematocrit* 40.2 % (33.0-51.0); Hemoglobin* 13.3 gm/dL (12.0-16.0); Immature Granulocytes Abs Auto 0.02 K/uL (0.00-0.30); Immature Granulocytes Pct Auto 0.2 %; Lymphocytes Absolute Auto 1.85 K/uL (0.90-2.90); Mean Corpuscular HGB Conc 33 gm/dL (32-36); Mean Corpuscular Hemoglobin 31 pg (26-34); Mean Corpuscular Volume 94 fL (80-100); RDW Coefficient of Variation % 12.1 % (11.5-15.5); Red Blood Count* 4.29 m/uL (4.00-5.20); White Blood Count* 9.02 K/uL (4.50-11.00)
[2025-03-18 06:50] LABS: Slide Review Reflex No
[2025-03-18 06:54] LABS: HCO3 VBG 28 mmol/L (21-28); Lactate* 1.1 mmol/L (0.5-1.9); PCO2 VBG 40 mmHG (40-50); PO2 VBG 55.0 mmHG (25-47); pH VBG 7.461 (7.32-7.43)
[2025-03-18 07:00] VITALS: BP 134/78; PULSE 103; RESP 18; TEMP 36.9; O2SAT 92
[2025-03-18 07:02] LABS: Chloride* 107 mmol/L (96-114); Potassium* 3.6 mmol/L (3.6-5.1); Sodium* 140 mmol/L (135-149)
[2025-03-18 07:04] LABS: Blood Urea Nitrogen* 14 mg/dL (7-30); Creatinine* 0.8 mg/dL (0.5-1.5); Est. Creatinine Clearance* 31.69; Estimated Glomerular Filt Rate 74 ml/min
[2025-03-18 07:05] LABS: Anion Gap 7 mEq/L (7-15); Calcium* 9.3 mg/dL (8.4-10.6); Carbon Dioxide* 26 mmol/L (20-32); Glucose* 98 mg/dL (60-115)
[2025-03-18] MEDS: AMLODIPINE 5 MG TABLET PO (10:09)
[2025-03-18] MEDS: RIVASTIGMINE TARTRATE 1.5 MG CAPSULE 4.5 MG PO ×2 (10:09→18:24)
[2025-03-18] MEDS: SODIUM CHLORIDE 0.9 % (FLUSH) 10 ML SYRINGE 5 ML IVF ×2 (10:18→20:30)
[2025-03-18 11:00] VITALS: BP 130/78; PULSE 91; RESP 16; TEMP 37.2; O2SAT 94
--- NOTE | 2025-03-18 13:01 | P.IMPN_ITS ---
Assessment and Plan Assessment and plan (1) Urinary tract infection: Problem comment: - abnormal urinalysis, urine culture set up. - continue ceftriaxone IV - Blood & urine culture are still pending, with follow-up Status: Acute (2) Sepsis: Problem comment: - elevated heart rate, white blood cell count, lactate, with acute cystitis has source - IV fluids, IV ceftriaxone - monitor closely Status: Acute (3) Major neurocognitive disorder due to Alzheimer's disease, without behavioral disturbance: Problem comment: Follows with Dr. Goins, [facility], and Shanta García, DNP, SENIOR TALENT ACQUISITION SPECIALIST, PREMIUM NOTE INTEREST CALCULATOR CLERK, [facility] - continue with supportive efforts Status: Acute (4) Hypertensive heart disease without heart failure: Problem comment: - transthoracic echo 07/22/2023: Normal LV chamber size, moderately increased LV chamber wall thickness, EF 58%; normal RV chamber size and systolic function; mild mitral regurgitation - monitor closely and continue with supportive treatment efforts Status: Acute Total Time Spent Total Time Spent: Today I spent 43 minutes seeing the patient, reviewing Expanse and EPIC notes/diagnostics, discussing the care plan with our care time that includes social work, PT/OT, pharmacy, RT, intermediate and documenting my impressions and plan in the medical record. Subjective Date Seen: 03/18/25 Interval history: No acute events overnight. Patient states that she feels okay today. Patient is still with low appetite for food. Exam Narrative: Exam Narrative: Physical exam GENERAL: Comfortable, no acute distress. HEAD AND NECK: Atraumatic, normocephalic CARDIOVASCULAR: RRR. Normal S1, S2. No murmurs. RESPIRATORY: Clear to auscultation B/L. Good air entry B/L. No wheezes or rhonchi. GASTROINTESTINAL: Not distended, not tender to palpation. NEUROLOGY: Alert, awake. Normal speech. PSYCH: Normal mood, normal affect. Const: Vital Signs, click to edit/add: Vital Signs - 24 hr 03/17/25 15:36 03/17/25 16:36 03/17/25 16:52 Temperature 97.2 F L Pulse Rate 78 77 Pulse Rate [Pulse Oximeter] Pulse Rate [Right Radial] 93 Respiratory Rate 19 18 Blood Pressure Blood Pressure [Le ft Arm] Blood Pressure [Ri ght Arm] Blood Pressure [Ri ght Upper Arm] 138/83 Pulse Oximetry 100 99 99 Oxygen Delivery Me thod Room Air 10/31/25 17:00 03/17/25 17:02 03/17/25 17:15 Temperature Pulse Rate 84 81 82 Pulse Rate [Pulse Oximeter] Pulse Rate [Right Radial] Respiratory Rate 18 19 18 Blood Pressure 166/81 H Blood Pressure [Le ft Arm] Blood Pressure [Ri ght Arm] Blood Pressure [Ri ght Upper Arm] Pulse Oximetry 99 99 99 Oxygen Delivery Me thod 03/17/25 17:40 03/17/25 17:43 03/17/25 17:45 Temperature Pulse Rate 89 79 80 Pulse Rate [Pulse Oximeter] Pulse Rate [Right Radial] Respiratory Rate 16 16 19 Blood Pressure 166/85 H Blood Pressure [Le ft Arm] Blood Pressure [Ri ght Arm] Blood Pressure [Ri ght Upper Arm] Pulse Oximetry 96 98 98 Oxygen Delivery Me thod 03/17/25 18:00 03/17/25 18:15 03/17/25 18:30 Temperature Pulse Rate 83 Pulse Rate [Pulse Oximeter] Pulse Rate [Right Radial] Respiratory Rate 19 16 14 Blood Pressure Blood Pressure [Le ft Arm] Blood Pressure [Ri ght Arm] Blood Pressure [Ri ght Upper Arm] Pulse Oximetry 99 Oxygen Delivery Me thod 03/17/25 18:45 03/17/25 18:48 03/17/25 19:00 Temperature Pulse Rate 96 102 H Pulse Rate [Pulse Oximeter] Pulse Rate [Right Radial] Respiratory Rate 18 18 19 Blood Pressure 173/91 H Blood Pressure [Le ft Arm] Blood Pressure [Ri ght Arm] Blood Pressure [Ri ght Upper Arm] Pulse Oximetry 98 97 Oxygen Delivery Me thod 03/17/25 19:01 03/17/25 19:15 03/17/25 19:30 Temperature Pulse Rate 105 H 105 H 105 H Pulse Rate [Pulse Oximeter] Pulse Rate [Right Radial] Respiratory Rate 18 16 18 Blood Pressure 162/93 H Blood Pressure [Le ft Arm] Blood Pressure [Ri ght Arm] Blood Pressure [Ri ght Upper Arm] Pulse Oximetry 97 96 96 Oxygen Delivery Me thod 03/17/25 19:31 03/17/25 19:45 03/17/25 20:00 Temperature Pulse Rate 98 99 98 Pulse Rate [Pulse Oximeter] Pulse Rate [Right Radial] Respiratory Rate 18 16 20 Blood Pressure 148/85 H Blood Pressure [Le ft Arm] Blood Pressure [Ri ght Arm] Blood Pressure [Ri ght Upper Arm] Pulse Oximetry 97 95 96 Oxygen Delivery Me thod 03/17/25 20:01 03/17/25 20:15 03/17/25 20:30 Temperature Pulse Rate 99 96 94 Pulse Rate [Pulse Oximeter] Pulse Rate [Right Radial] Respiratory Rate 17 16 18 Blood Pressure 148/94 H Blood Pressure [Le ft Arm] Blood Pressure [Ri ght Arm] Blood Pressure [Ri ght Upper Arm] Pulse Oximetry 95 95 96 Oxygen Delivery Me thod 03/17/25 20:43 03/17/25 20:45 03/17/25 22:00 Temperature 97.7 F Pulse Rate 99 96 Pulse Rate [Pulse Oximeter] 88 Pulse Rate [Right Radial] Respiratory Rate 18 16 16 Blood Pressure 164/87 H Blood Pressure [Le ft Arm] Blood Pressure [Ri ght Arm] 165/92 H Blood Pressure [Ri ght Upper Arm] Pulse Oximetry 96 96 98 Oxygen Delivery Me thod Room Air 03/17/25 22:00 03/18/25 04:05 03/18/25 07:00 Temperature 98.5 F 98.5 F Pulse Rate Pulse Rate [Pulse Oximeter] 81 103 H Pulse Rate [Right Radial] Respiratory Rate 16 18 Blood Pressure Blood Pressure [Le ft Arm] 134/78 Blood Pressure [Ri ght Arm] 146/90 H Blood Pressure [Ri ght Upper Arm] Pulse Oximetry 98 96 92 Oxygen Delivery Me thod Room Air Room Air Room Air 03/18/25 07:00 03/18/25 11:00 Temperature 98.9 F Pulse Rate Pulse Rate [Pulse Oximeter] 91 Pulse Rate [Right Radial] Respiratory Rate 18 16 Blood Pressure Blood Pressure [Le ft Arm] 130/78 Blood Pressure [Ri ght Arm] Blood Pressure [Ri ght Upper Arm] Pulse Oximetry 92 94 Oxygen Delivery Me thod Room Air Room Air Labs Labs: Laboratory Results - last 24 hr 03/17/25 03/17/25 03/17/25 16:06 16:20 16:25 WBC 12.08 H RBC 4.48 Hgb 13.9 Hct 41.9 MCV 94 MCH 31 MCHC 33 RDW Coeff of Anu 12.0 Plt Count 238 Neut % (Auto) 88.6 H Lymph % (Auto) 6.3 L Tillman % (Auto) 3.4 Eos % (Auto) 0.2 Baso % (Auto) 0.3 Neut # (Auto) 10.70 H Lymph # (Auto) 0.80 L Tillman # (Auto) 0.40 Eos # (Auto) 0.00 Baso # (Auto) 0.00 Abs Immat Gran (auto) 0.10 Imm/Tot Granulo (auto) 1.2 VBG pH VBG pCO2 VBG pO2 VBG HCO3 Sodium 138 Potassium 3.8 Chloride 107 Carbon Dioxide 24 Anion Gap 7 BUN 24 Creatinine 0.8 Estimated Creat Clear 31.69 Estimated GFR 74 Glucose 214 H Lactate 4.0 H Calcium 9.6 Phosphorus Magnesium 1.5 Total Bilirubin 0.4 AST 25 ALT 18 Alkaline Phosphatase 67 C-Reactive Protein Total Protein 7.4 Albumin 4.3 Urine Color Yellow Urine Appearance Clear Urine pH 7.5 Ur Specific [place] 1.015 Urine Protein Negative Urine Glucose (UA) Trace A Urine Ketones Negative Urine Blood Trace-intact A Urine Nitrite Positive A Urine Bilirubin Negative Urine Urobilinogen 0.2 Ur Leukocyte Esterase Negative Urine RBC 0-2 Urine WBC 0-2 Ur Squamous Epith Cells None Urine Bacteria Many A SARS-CoV-2 (PCR) Negative SARS-CoV-2 Influenza Type A (PCR) Negative PCR FLU A Influenza Type B (PCR) Negative PCR FLU B RSV (PCR) Negative PCR RSV Lab Acknowledgement POC Troponin I 0.00 L 03/17/25 03/17/25 03/17/25 16:41 18:40 20:38 WBC 10.65 RBC 4.48 Hgb 13.8 Hct 41.9 MCV 94 MCH 31 MCHC 33 RDW Coeff of Anu 11.8 Plt Count 270 Neut % (Auto) 88.8 H Lymph % (Auto) 7.8 L Tillman % (Auto) 2.7 Eos % (Auto) 0.1 Baso % (Auto) 0.4 Neut # (Auto) 9.50 H Lymph # (Auto) 0.80 L Tillman # (Auto) 0.30 Eos # (Auto) 0.01 Baso # (Auto) 0.04 Abs Immat Gran (auto) 0.02 Imm/Tot Granulo (auto) 0.2 VBG pH VBG pCO2 VBG pO2 VBG HCO3 Sodium Potassium Chloride Carbon Dioxide Anion Gap BUN Creatinine Estimated Creat Clear Estimated GFR Glucose Lactate 2.3 H 2.5 H Calcium Phosphorus Magnesium Total Bilirubin AST ALT Alkaline Phosphatase C-Reactive Protein Total Protein Albumin Urine Color Urine Appearance Urine pH Ur Specific [place] Urine Protein Urine Glucose (UA) Urine Ketones Urine Blood Urine Nitrite Urine Bilirubin Urine Urobilinogen Ur Leukocyte Esterase Urine RBC Urine WBC Ur Squamous Epith Cells Urine Bacteria SARS-CoV-2 (PCR) Influenza Type A (PCR) Influenza Type B (PCR) RSV (PCR) Lab Acknowledgement Test Added POC Troponin I 03/18/25 05:45 WBC 9.02 RBC 4.29 Hgb 13.3 Hct 40.2 MCV 94 MCH 31 MCHC 33 RDW Coeff of Anu 12.1 Plt Count 273 Neut % (Auto) 69.4 Lymph % (Auto) 20.5 Tillman % (Auto) 8.9 Eos % (Auto) 0.6 Baso % (Auto) 0.4 Neut # (Auto) 6.26 Lymph # (Auto) 1.85 Tillman # (Auto) 0.80 Eos # (Auto) 0.05 Baso # (Auto) 0.04 Abs Immat Gran (auto) 0.02 Imm/Tot Granulo (auto) 0.2 VBG pH 7.461 H VBG pCO2 40 VBG pO2 55.0 H VBG HCO3 28 Sodium 140 Potassium 3.6 Chloride 107 Carbon Dioxide 26 Anion Gap 7 BUN 14 Creatinine 0.8 Estimated Creat Clear 31.69 Estimated GFR 74 Glucose 98 Lactate 1.1 Calcium 9.3 Phosphorus 3.7 Magnesium 1.6 Total Bilirubin AST ALT Alkaline Phosphatase C-Reactive Protein < 0.5 L Total Protein Albumin Urine Color Urine Appearance Urine pH Ur Specific [place] Urine Protein Urine Glucose (UA) Urine Ketones Urine Blood Urine Nitrite Urine Bilirubin Urine Urobilinogen Ur Leukocyte Esterase Urine RBC Urine WBC Ur Squamous Epith Cells Urine Bacteria SARS-CoV-2 (PCR) Influenza Type A (PCR) Influenza Type B (PCR) RSV (PCR) Lab Acknowledgement POC Troponin I
[2025-03-18 15:23] VITALS: BP 140/67; PULSE 79; RESP 16; TEMP 37.1; O2SAT 98
[2025-03-18] MEDS: cefTRIAXone 1 GM in 0.9 % SODIUM CHLORIDE Mini-bag 100 ML IVPB (18:24)
--- NOTE | 2025-03-18 18:47 | PC.NURSE ---
End of shift [id number] - Pt alert, oriented to self, cooperative and pleasant. Up with standby assistance and walker, needs some queuing for eating/drinking, toileting/hygiene tasks. Receptive to cares. Pt denies pain, SOB, n/v. Family at bedside during shift. Pt states she thinks she feels better and appears to be resting comfortably in bed at end of shift with call light within reach.
[2025-03-18 19:18] VITALS: BP 144/89; PULSE 92; RESP 16; TEMP 37.3; O2SAT 94
[2025-03-18] MEDS: MIRTAZAPINE 15 MG TABLET 7.5 MG PO (20:30)
[2025-03-18] MEDS: ENOXAPARIN 30 MG/0.3ML INJ SUBCUT (22:22)
--- NOTE | 2025-03-18 22:40 | PC.NURSE ---
shift note: Pt. AOx2. Pt. appropriate & coherent. Pt. up to BR w/ RN for HS cares and BR. Pt. able to perform HS cares w/ SBA. Family bedside & supportive.
[2025-03-18 23:00] VITALS: BP 142/79; PULSE 77; RESP 15; TEMP 36.8; O2SAT 93
[2025-03-19 02:32] VITALS: BP 126/71; PULSE 63; RESP 15; TEMP 36.6; O2SAT 94
--- NOTE | 2025-03-19 05:36 | PC.NURSE ---
Patient incontinent of bowel and bladder, brief checked and changed with skin care, no excoriation noted. Patient utilizing bed and chair alarm due to poor safety awareness. Vitals stable, PIV patent.
[2025-03-19 06:30] LABS: Hematocrit* 40.5 % (33.0-51.0); Hemoglobin* 13.2 gm/dL (12.0-16.0); Mean Corpuscular HGB Conc 33 gm/dL (32-36); Mean Corpuscular Hemoglobin 31 pg (26-34); Mean Corpuscular Volume 95 fL (80-100); Red Blood Count* 4.25 m/uL (4.00-5.20); White Blood Count* 6.64 K/uL (4.50-11.00)
[2025-03-19 06:37] LABS: Slide Review Reflex No
[2025-03-19 06:43] LABS: Chloride* 107 mmol/L (96-114); Potassium* 3.4 mmol/L (3.6-5.1); Sodium* 140 mmol/L (135-149)
[2025-03-19 06:46] LABS: Anion Gap 5 mEq/L (7-15); Blood Urea Nitrogen* 16 mg/dL (7-30); Calcium* 9.0 mg/dL (8.4-10.6); Carbon Dioxide* 28 mmol/L (20-32); Creatinine* 0.9 mg/dL (0.5-1.5); Est. Creatinine Clearance* 31.69; Estimated Glomerular Filt Rate 64 ml/min; Glucose* 89 mg/dL (60-115)
[2025-03-19] MEDS: RIVASTIGMINE TARTRATE 1.5 MG CAPSULE 4.5 MG PO (08:46)
[2025-03-19] MEDS: POTASSIUM CHLORIDE 10 MEQ CAPSULE ER 40 MEQ PO (08:47)
[2025-03-19] MEDS: AMLODIPINE 5 MG TABLET PO (08:47)
[2025-03-19] MEDS: ACETAMINOPHEN 325 MG TABLET 650 MG PO (08:48)
[2025-03-19] MEDS: SODIUM CHLORIDE 0.9 % (FLUSH) 10 ML SYRINGE 5 ML IVF (08:49)
[2025-03-19 09:04] VITALS: RESP 18; O2SAT 96
[2025-03-19 09:06] VITALS: BP 134/77; PULSE 75; RESP 18; TEMP 37.1; O2SAT 96
--- NOTE | 2025-03-19 10:43 | P.DS_ITS ---
DS: Providers Provider Date Seen: 03/19/25 Date of admission: 03/17/25 21:57 Primary care physician: Shaina Perry MD Admitting Clinician: Carlton Nascimento MD Consults: 03/19/25 07:57 Consult to Occupational Therapy [CONS] Routine Comment: Reason(s) for OT Consult:: Evaluate and Treat Any Restrictions?:: No Restrictions Consult to Physical Therapy [CONS] Routine Comment: Reason(s) for PT Consult:: Evaluate and Treat Any Restrictions?:: No Restrictions Attending Physician on discharge: Carlton Nascimento MD DS: Diagnosis Discharge Diagnosis (1) Urinary tract infection: Status: Acute Problem details: - abnormal urinalysis, urine culture set up. - continue ceftriaxone IV - Blood culture negative - urine culture growing pansensitive E coli - DC patient, to complete a course of oral antibiotics, cefdinir twice a day for 5 days (2) Sepsis: Status: Resolved Problem details: - elevated heart rate, white blood cell count, lactate, with acute cystitis has source - IV fluids, IV ceftriaxone - monitor closely (3) Major neurocognitive disorder due to Alzheimer's disease, without behavioral disturbance: Status: Acute Problem details: Follows with Dr. Goins, [facility], and Shanta García, DNP, [employer], STUDENT [employer]IAISON OFFICER, [facility] - continue with supportive efforts (4) Hypertensive heart disease without heart failure: Status: Acute Problem details: - transthoracic echo 07/22/2023: Normal LV chamber size, moderately increased LV chamber wall thickness, EF 58%; normal RV chamber size and systolic function; mild mitral regurgitation - monitor closely and continue with supportive treatment efforts DS: Summary Hospital Course Hospital Course: Patient with past medical history of hypertension, Alzheimer's disease presented with sepsis. Source of infection was found to be UTI, we started treatment with ceftriaxone IV. Patient improved and is back to her baseline. Blood culture negative , urine culture growing pansensitive E coli patient to complete a course of oral antibiotics, cefdinir twice a day for 5 days, follow- up with primary care physician as an outpatient. No PT/OT needs at home. Status at Discharge Functional status at discharge: uses cane/walker Overall status at discharge: patient is back to baseline Time Spent with Patient Time attestation: Total time spent providing and/or coordinating discharge services: Exam Narrative: Exam Narrative: Physical exam GENERAL: Comfortable, no acute distress. HEAD AND NECK: Atraumatic, normocephalic CARDIOVASCULAR: RRR. Normal S1, S2. No murmurs. RESPIRATORY: Clear to auscultation B/L. Good air entry B/L. No wheezes or rhonchi. GASTROINTESTINAL: Not distended, not tender to palpation. NEUROLOGY: Alert, awake. Normal speech. PSYCH: Normal mood, normal affect. Const: Vital Signs, click to edit/add: Vital Signs - 24 hr 03/18/25 15:23 03/18/25 15:23 03/18/25 19:18 Temperature 98.8 F 99.2 F Pulse Rate [Pulse Oximeter] 79 92 Respiratory Rate 16 16 16 Blood Pressure [Le ft Arm] 140/67 H 144/89 H Pulse Oximetry 98 98 94 Oxygen Delivery Me thod Room Air Room Air Room Air 03/18/25 19:18 03/18/25 23:00 03/18/25 23:00 Temperature 98.3 F Pulse Rate [Pulse Oximeter] 92 77 77 Respiratory Rate 16 15 15 Blood Pressure [Le ft Arm] 142/79 H Pulse Oximetry 93 Oxygen Delivery Me thod Room Air 03/18/25 23:00 03/19/25 02:32 03/19/25 09:04 Temperature 97.8 F Pulse Rate [Pulse Oximeter] 63 Respiratory Rate 15 15 18 Blood Pressure [Le ft Arm] 126/71 Pulse Oximetry 93 94 96 Oxygen Delivery Me thod Room Air Room Air 03/19/25 09:06 Temperature 98.7 F Pulse Rate [Pulse Oximeter] 75 Respiratory Rate 18 Blood Pressure [Le ft Arm] 134/77 Pulse Oximetry 96 Oxygen Delivery Me thod Room Air DS: Data Data Completed and Pending Labs on day of discharge: Labs from last 24 hours 03/19/25 05:50 WBC 6.64 RBC 4.25 Hgb 13.2 Hct 40.5 MCV 95 MCH 31 MCHC 33 Plt Count 251 Sodium 140 Potassium 3.4 L Chloride 107 Carbon Dioxide 28 Anion Gap 5 L BUN 16 Creatinine 0.9 Estimated Creat Clear 31.69 Estimated GFR 64 Glucose 89 Calcium 9.0 Preliminary micro results at discharge 03/17/25 17:15 Blood Culture - Preliminary Blood NO GROWTH AFTER 24 HOURS 03/17/25 17:09 Blood Culture - Preliminary Blood NO GROWTH AFTER 24 HOURS Discharge Plan Discharge Disposition: Home w/ Parent or Adult Date of Admission: 03/17/25 21:57 Attending Provider on Discharge: Netta Sawyer Primary Care Provider: Shaina Perry Condition: Stable Anticipated Discharge Date/Time: 03/19/25 10:38 Discharge Medications: New cefdinir 300 mg capsule 300 mg PO BID Qty: 10 0RF Continued bupropion HCl 100 mg tablet sustained-release 12 hr 100 mg PO BID dextromethorphan HBr 15 mg capsule 45 mg PO BID cholecalciferol (vitamin D3) 25 mcg (1,000 unit) tablet 25 mcg PO DAILY amlodipine 5 mg Tablet 5 mg PO DAILY Qty: 30 0RF memantine 5 mg tablet 5 mg PO BID mirtazapine 7.5 mg tablet 7.5 mg PO HS PRN (Reason: insomnia) rivastigmine tartrate 4.5 mg capsule 4.5 mg PO BID acetaminophen [Acetaminophen Pain Relief] 500 mg tablet 1,000 mg PO BID PRN calcium carbonate [Calcium 500] 500 mg calcium (1,250 mg) tablet,chewable 500 mg PO DAILY Discharge Orders: Discharge Order (Routine); Ordered 03/19/25 Ordered By: Netta Sawyer Patient Education: Urinary Tract Infection in Older Adults (GEN) Additional Instructions: You need to complete a course of oral antibiotics, cefdinir twice a day for 5 days You need to follow-up with your primary care physician in 1-2 weeks Activity Level: Activity as Tolerated Discharge Diet: Heart Healthy (2 gm sodium, low fat) Follow Up Appointments: Shaina Perry MD [Primary Care Provider, Family Practice] Referral Note: Follow-up in 1-2 weeks Problems: Urinary tract infection Forms: [facility] Info Instructions
--- NOTE | 2025-03-19 11:49 | PC.NURSE ---
Discharge - Pt alert, oriented to self. very pleasant and cooperative to cares. Up with standby assistance and walker/gait belt. Denies pain, SOB, n/v. Family at bedside and appear to be very supportive and involved in care. D/C education provided to pt and family, all verbalized understanding. IV removed with catheter intact. Pt d/c'd to home via wheelchair with family members at approximately 1125.
== END 2025-03-19 11:25 | disposition home or self-care (01) | DRG 872 ==
LOC: ED 21:33 → MEDSURG 21:58
PROVIDERS: Student in an Organized Health Care Education/Training Program; Admitting Provider Internal Medicine; Emergency Provider Student in an Organized Health Care Education/Training Program; PCP Family Medicine; Visit Provider Internal Medicine
DX: A41.9 Sepsis, unspecified organism (principal); N30.00 Acute cystitis without hematuria; B96.20 Unspecified Escherichia coli [E. coli] as the cause of diseases classified elsewhere; G30.9 Alzheimer's disease, unspecified; F02.80 Dementia in other diseases classified elsewhere, unspecified severity, without behavioral disturbance, psychotic disturbance, mood disturbance, and anxiety; R32 Unspecified urinary incontinence; I11.9 Hypertensive heart disease without heart failure; F42.9 Obsessive-compulsive disorder, unspecified; R73.03 Prediabetes; E78.5 Hyperlipidemia, unspecified; F41.9 Anxiety disorder, unspecified; F32.A Depression, unspecified
CPT/HCPCS: 36415; 70450; 80048; 80053; 81001; 82803; 83605; 83735; 84100; 84484; 85025; 85027; 86140; 87040; 87086; 87631; 93005; 97110; 97116; 97161; 97165; 99285; 99291; A9270; J0696; J1650; J7030; J7120

== ENCOUNTER 2025-03-23 08:32 | Outpatient (RCR) | payer MEDICARE, BC, SELFPAY | END 2025-03-23 15:49 | disposition home or self-care (01) | PROVIDERS: PCP Family Medicine; Visit Provider Family Medicine | DX: R26.81 Unsteadiness on feet (principal); G30.9 Alzheimer's disease, unspecified; F02.80 Dementia in other diseases classified elsewhere, unspecified severity, without behavioral disturbance, psychotic disturbance, mood disturbance, and anxiety; Z51.89 Encounter for other specified aftercare | CPT/HCPCS: 97110; 97116; 97161 ==

== ENCOUNTER 2025-04-03 20:12 | Emergency (ER) | payer MEDICARE, BC, SELFPAY ==
[2025-04-03 20:57] VITALS: BP 145/86; PULSE 100; RESP 18; TEMP 36.6; O2SAT 95
[2025-04-03 21:29] LABS: Appearance Urine Clear (Clear)
[2025-04-03 22:19] VITALS: BP 143/80; PULSE 80; RESP 18; O2SAT 95
[2025-04-03] MEDS: 0.9 % SODIUM CHLORIDE 500 ML 500 ML IV (22:40)
--- NOTE | 2025-04-03 22:42 | ED.GENADULT ---
HPI - General Adult General Chief complaint: Unspecified Complaint, Adult Stated complaint: Possible UTI Time Seen by Provider: 04/03/25 22:23 Source: patient and family Mode of arrival: ambulatory Limitations: no limitations History of Present Illness HPI narrative: 79-year-old female with history of dementia presents to the emergency department with ?not feeling well?. Nothing specific. No focal neurological changes, no headache, no fever. Family reports that this is similar to when she had a complicated urinary tract infection and was being monitored for sepsis 3 weeks ago. She ate a late lunch with her today. She then went to bed which is unusual for her, family found her in bed, weaker than usual. No vomiting, does not typically drink much liquid which does certainly contribute to her frequent bladder infections. She is not having any hematuria or any obvious dysuria. No chest pain, no dyspnea, no productive cough. No illness exposures. In the last couple of weeks, she did finish the antibiotics for her last urinary tract infection. She had a knee injection 11 days ago. She also had a COVID and influenza vaccine 5 days ago. No other recent medication changes. No falls. She does not take any anticoagulants. Denies any other localizing symptoms of pain, infection, rashes. She had a loose stool earlier today but no dieudonne diarrhea. Discharge summary and cultures reviewed from 3 weeks ago. Past medical history notable for anxiety, dementia, hypertension. Medications accurate as listed. No known drug allergies. Nonsmoker. ROS notable for the generalized symptoms as above only, otherwise denies times 12 systems. Related Data Home Medications ?Medication ?Instructions ?Recorded ?Confirmed bupropion HCl 100 mg tablet,12 hr 100 mg PO BID 07/20/23 04/03/25 sustained-release cholecalciferol (vitamin D3) 25 25 mcg PO DAILY 07/20/23 04/03/25 mcg (1,000 unit) tablet dextromethorphan HBr 15 mg capsule 45 mg PO BID 07/20/23 04/03/25 acetaminophen 500 mg tablet 1,000 mg PO BID PRN 03/18/25 04/03/25 (Acetaminophen Pain Relief) calcium carbonate (Calcium 500) 500 mg PO DAILY 03/18/25 04/03/25 memantine 5 mg tablet 5 mg PO BID 03/18/25 04/03/25 mirtazapine 7.5 mg tablet 7.5 mg PO HS PRN insomnia 03/18/25 04/03/25 rivastigmine tartrate 4.5 mg 4.5 mg PO BID 03/18/25 04/03/25 capsule Previous Rx's ?Medication ?Instructions ?Recorded amlodipine 5 mg tablet 5 mg PO DAILY #30 tabs 07/22/23 levofloxacin 250 mg tablet 250 mg PO HS 4 days #4 tabs 04/04/25 Allergies Allergy/AdvReac Type Severity Reaction Status Date / Time No Known Drug Allergies Allergy Verified 04/03/25 21:05 [facility] Medical History Hypertensive heart disease without heart failure ?I11.9 - Hypertensive heart disease without heart failure (ICD-10) Congenital nonprogressive ataxia ?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6 - Rectocele (ICD-10) Bowel incontinence ?R15.9 - Full incontinence of feces (ICD-10) Bladder incontinence ?R32 - Unspecified urinary incontinence (ICD-10) Insomnia ?G47.00 - Insomnia, unspecified (ICD-10) HTN (hypertension) ?I10 - Essential (primary) hypertension (ICD-10) Implantable loop recorder present ?Z95.818 - Presence of other cardiac implants and grafts (ICD-10) Dysequilibrium ?R42 - Dizziness and giddiness (ICD-10) Depression ?F32.A - Depression, unspecified (ICD-10) Anxiety ?F41.9 - Anxiety disorder, unspecified (ICD-10) Surgical History H/O sinus surgery ?Z98.890 - Other specified postprocedural states (ICD-10) History of tonsillectomy ?Z90.89 - Acquired absence of other organs (ICD-10) Social History What is your current living situation?: I presently have a place to live Problems where you live: no known problems Problems where you live details: no known problems In the past 12 months, utilities in danger of being shut off: no In past 12 months, lack of transportation kept you from medical appts, meetings, work, or getting things needed for daily living: no In the past 12 mos, have been you worried that your food would run out before you had money to buy more?: never true In the past 12 mos, the food you bought just didn't last and you didn't have money to buy more?: never true Highest level of school completed/degree received: high school graduate Smoking Status: Never smoker Do you use any of these nicotine containing products: None Second hand tobacco smoke exposure: Yes How often do you have a drink containing alcohol: never How often do you have six or more drinks on one occasion: Never AUDIT-C Alcohol total score: 0 Non-prescribed substance use: denies use Caffeine: Yes How often does anyone, including family, friends and others, physically hurt you: never How often does anyone, including family, friends and others, insult or talk down to you: never How often does anyone, including family, friends and others, threaten you with harm: never How often does anyone, including family, friends and others, scream or curse at you: never service: No Exam Const: Vital Signs, click to edit/add: Vital Signs - 24 hr 04/03/25 20:57 04/03/25 22:19 Temperature 97.8 F Pulse Rate [Pulse Oximeter] 100 80 Respiratory Rate 18 18 Blood Pressure [Ri ght Upper Arm] 145/86 H 143/80 H Pulse Oximetry 95 95 Oxygen Delivery Me thod Room Air Room Air Documenting provider has reviewed patient's vital signs: yes Common normals: no apparent distress General appearance: well kempt Other: Calm, cooperative. Suboptimal historian but does attempt to answer questions. Appears well nourished and well hydrated, nontoxic HENMT: Common normals: normocephalic, moist oral mucous membranes and oropharynx normal Head and scalp: normocephalic Face and sinus: normal facial exam Mouth: oral and palatal mucosa normal Eye: Common normals: conjunctivae normal General eye: normal appearance of both eyes Conjunctiva: conjunctiva(e) normal Neck & C-Spine: Common normals: full ROM and no lymphadenopathy General: normal visual inspection Resp: Common normals: normal respiratory effort, no use of accessory muscles and clear to auscultation bilaterally Effort & inspection: able to speak in complete sentences Auscultation: clear to auscultation bilaterally Cardio: Common normals: regular rate, regular rhythm, S1 normal heart sound, S2 normal heart sound and no murmurs Rate: regular rate Rhythm: regular rhythm Heart sounds: S1 normal and S2 normal GI: Common normals: Normal to inspection, nondistended, normoactive bowel sounds present, soft to palpation, non-tender, no hepatosplenomegaly and no masses Palpation: soft and no hepatosplenomegaly : Common normals: no CVA tenderness Bladder/kidney exam: no CVA tenderness Back & Pelvis: Common normals: no CVA tenderness and thoracic and lumbar spine normal to inspection Extremity: Common normals: normal to inspection and normal capillary refill Neuro: Common normals: CN's II-XII intact bilaterally and moves all extremities Psych: Appearance: well kempt Attitude: engaged Insight: limited Judgement: fair Skin: Common normals: no rashes or lesions noted General skin exam: no rashes or lesions noted Course Course ED Course: 79-year-old female with some generalized weakness and low energy ?not feeling well?. History of recurrent bladder infections, family suspects bladder infection again. Denies any cardiac symptoms, injury, fall or new focal neurological changes. Counseled family that there is high chance that this is a bladder infection again, especially as she has not been eating or drinking well from recent illness, injections and getting her recent vaccines. Will place peripheral IV, typical sepsis labs. Urinalysis was reviewed from triage, is suspicious for infection. Will give Levaquin. Recent culture reviewed. Recent treatment with cephalosporin, would like to change classes. Will be renally dosed based on age. Will see how she responds to these interventions and if the labs lead us into any other diagnoses. Viral swabs are also collected and pending. Reevaluation(s) Time of Reevaluation #1: 00:33 Reevaluation #1: Counseled patient and family on findings. Labs look overall reassuring with the exception of the abnormal urinalysis. No signs of sepsis, other viral infections, dehydration, renal abnormalities or electrolyte abnormalities. Patient given 500 of IV Levaquin x1, will then transition to 250 p.o. daily for 4 additional days. Risks and benefits of use of this antibiotic reviewed with family, rationale valid based on recent cephalosporin treatment and prior culture results are reviewed. Patient was given 500 mL of IV fluid, tolerated this well. Alarm symptoms reviewed that would warrant follow-up including severe weakness, high fever or neurological changes. Will continue all other medications as prescribed. Family verbalized understanding and agreement of plan. Vital Signs Vital signs: Initial Vital Signs Temperature 97.8 F 04/03/25 20:57 Temperature Source Oral 04/03/25 20:57 Pulse Rate 100 04/03/25 20:57 Respiratory Rate 18 04/03/25 20:57 Blood Pressure 145/86 H 04/03/25 20:57 Blood Pressure Mean 105 04/03/25 20:57 Blood Pressure Position Sitting 04/03/25 20:57 Pulse Oximetry 95 04/03/25 20:57 Oxygen Delivery Method Room Air 04/03/25 20:57 Vital Signs Temperature 97.8 F 04/03/25 20:57 Pulse Rate 100 04/03/25 20:57 Respiratory Rate 18 04/03/25 20:57 Blood Pressure 145/86 H 04/03/25 20:57 Pulse Oximetry 95 04/03/25 20:57 Oxygen Delivery Method Room Air 04/03/25 20:57 Temperature 97.8 F 04/03/25 20:57 Pulse Rate 80 04/03/25 22:19 Respiratory Rate 18 04/03/25 22:19 Blood Pressure 143/80 H 04/03/25 22:19 Pulse Oximetry 95 04/03/25 22:19 Oxygen Delivery Method Room Air 04/03/25 22:19 Medications Administered Medications: Discontinued Medications Generic Name Dose Route Start Last Admin Trade Name Freq PRN Reason Stop Dose Admin Sodium Chloride 500 mls @ 500 mls/hr 04/03/25 22:38 04/03/25 22:40 0.9 % Sodium Chloride 500 Ml IV 04/03/25 23:37 500 mls/hr .Q1H RANDA Administration Levofloxacin/Dextrose 500 mg in 100 mls @ 100 mls/hr 04/03/25 22:51 04/03/25 23:07 Levofloxacin 500 Mg/100 Ml D5w IVPB 04/03/25 23:50 100 mls/hr ONCE ONE Administration Medical Decision Making Lab Data Lab results reviewed: Yes I reviewed the patient's lab results Lab results narrative: Labs are pretty reassuring. Lactate looks okay, no leukocytosis. Electrolytes normal. Renal function stable from prior. Urinalysis does show signs of infection. Culture pending. Labs: Lab Results 04/03/25 04/03/25 Range/Units 20:41 22:53 WBC 7.49 (4.50-11.00) K/uL RBC 4.36 (4.00-5.20) m/uL Hgb 13.4 (12.0-16.0) gm/dL Hct 41.5 (33.0-51.0) % MCV 95 (80-100) fL MCH 31 (26-34) pg MCHC 32 (32-36) gm/dL RDW Coeff of Anu 12.3 (11.5-15.5) % Plt Count 296 (140-440) K/uL Neut % (Auto) 81.2 H (42.0-72.0) % Lymph % (Auto) 11.5 L (20-44) % [place] % (Auto) 5.9 (0.0-11.0) % Eos % (Auto) 0.3 (0.0-7.0) % Baso % (Auto) 0.3 (0.0-3.0) % Neut # (Auto) 6.10 (1.7-7.0) K/uL Lymph # (Auto) 0.90 (0.90-2.90) K/uL [place] # (Auto) 0.40 (0.00-0.90) K/UL Eos # (Auto) 0.02 (0.00-0.50) K/uL Baso # (Auto) 0.02 (0.00-0.30) K/uL Abs Immat Gran (auto) 0.06 (0.00-0.30) K/uL Imm/Tot Granulo (auto) 0.8 % Sodium 138 (135-149) mmol/L Potassium 4.4 (3.6-5.1) mmol/L Chloride 106 (96-114) mmol/L Carbon Dioxide 26 (20-32) mmol/L Anion Gap 6 L (7-15) mEq/L BUN 30 (7-30) mg/dL Creatinine 0.8 (0.5-1.5) mg/dL Estimated GFR 74 ml/min Glucose 148 H (60-115) mg/dL Lactate 1.6 (0.5-1.9) mmol/L Calcium 9.8 (8.4-10.6) mg/dL Total Bilirubin 0.6 (0.1-1.5) mg/dL AST 31 (12-35) U/L ALT 21 (4-35) U/L Alkaline Phosphatase 52 (40-150) U/L C-Reactive Protein < 0.5 L (0.5-1.0) mg/dL Total Protein 7.6 (6.0-8.3) g/dL Albumin 4.2 (3.3-5.0) g/dL Procalcitonin 0.06 (<0.50) ng/mL Urine Color Yellow (Yellow) Urine Appearance Clear (Clear) Urine pH 7.5 (5.0-8.5) Ur Specific [place] 1.015 (1.000-1.030) Urine Protein Negative (Negative) Urine Glucose (UA) Negative (Negative) Urine Ketones Negative (Negative) Urine Blood Negative (Negative) Urine Nitrite Negative (Negative) Urine Bilirubin Negative (Negative) Urine Urobilinogen 0.2 (0.2-1.0) Ur Leukocyte Esterase 2+ A (Negative) Urine RBC 0-2 (0-2) Urine WBC 2-5 (0-5) Ur Squamous Epith Cells Few (None-Few) Urine Bacteria Moderate A (None) SARS-CoV-2 (PCR) Negative SARS-CoV-2 (Negative) Influenza Type A (PCR) Negative PCR FLU A (Negative) Influenza Type B (PCR) Negative PCR FLU B (Negative) RSV (PCR) Negative PCR RSV (Negative) Discharge Plan Discharge Clinical Impression: Urinary tract infection Patient Disposition: Home w/ Parent or Adult Condition: Stable Instructions: Urinary Tract Infection in Older Adults (ED) Additional Instructions: As we discussed, there is not seem to be any signs of sepsis today. COVID and influenza swabs are also negative. The urine test does show a mild bladder infection which I do recommend that we treat. She was started on an antibiotic, Levaquin here in the emergency room. You will need to continue on this once daily at bedtime for the next 4 additional days, 5 days total. It is important that you are drinking more water to help flush out your bladder and reduce the risk of further infections. Aim for about 32 oz per day. Please return to the emergency room if you have high fevers, significant worsening of symptoms, neurological changes or severe weakness. Will call you if your antibiotic needs to be changed based on your culture results. We will not call if everything looks to be satisfactory. Activity Level: Activity as Tolerated Discharge Diet: Regular Prescriptions: New levofloxacin 250 mg tablet 250 mg PO HS 4 Days Qty: 4 0RF No Action bupropion HCl 100 mg tablet sustained-release 12 hr 100 mg PO BID dextromethorphan HBr 15 mg capsule 45 mg PO BID cholecalciferol (vitamin D3) 25 mcg (1,000 unit) tablet 25 mcg PO DAILY amlodipine 5 mg Tablet 5 mg PO DAILY Qty: 30 0RF memantine 5 mg tablet 5 mg PO BID mirtazapine 7.5 mg tablet 7.5 mg PO HS PRN (Reason: insomnia) rivastigmine tartrate 4.5 mg capsule 4.5 mg PO BID acetaminophen [Acetaminophen Pain Relief] 500 mg tablet 1,000 mg PO BID PRN calcium carbonate [Calcium 500] 500 mg calcium (1,250 mg) tablet,chewable 500 mg PO DAILY Follow Up/Referrals: Shaina Perry MD [Primary Care Provider, Family Practice] Stand Alone Forms: [employer] Info Instructions
[2025-04-03 22:59] LABS: Hematocrit* 41.5 % (33.0-51.0); Hemoglobin* 13.4 gm/dL (12.0-16.0); Immature Granulocytes Abs Auto 0.06 K/uL (0.00-0.30); Immature Granulocytes Pct Auto 0.8 %; Lactate Sepsis w/Reflex* 1.6 mmol/L (0.5-1.9); Mean Corpuscular HGB Conc 32 gm/dL (32-36); Mean Corpuscular Hemoglobin 31 pg (26-34); Mean Corpuscular Volume 95 fL (80-100); RDW Coefficient of Variation % 12.3 % (11.5-15.5); Red Blood Count* 4.36 m/uL (4.00-5.20); White Blood Count* 7.49 K/uL (4.50-11.00)
[2025-04-03 23:05] LABS: Lymphocytes Absolute Auto 0.90 K/uL (0.90-2.90); Slide Review Reflex No
[2025-04-03] MEDS: levoFLOXacin 500 MG/100 ML D5W 500 MG/100 ML PIGGYBACK 100 MG IVPB (23:07)
--- OUTSIDE RECORDS SUMMARY | 2025-04-03 23:10 | XMS_ITS | Clinical Summary ---
Author Organization [facility] Address [address] [place] [address] Care Team Providers Care Biometrics Head Name Role Phone ClevelandNikkieJovan W Unavailable [phone] Service, Emma Katz MD Unavailable Un available Priscila Carter Unavailable [phone] Shaina Perry MD Primary Care Provider [phone] Allergies No known active allergies Medications acetaminophen [...] by mouth once daily. Active lactobac cmb #[id number] (PROBIOTIC & ACIDOPHILUS) 300-250 million cell-mg cap Take 1 tablet by mouth once daily. 0 04/27/20 15 Active rivastigmine tartrate (EXELON) 1.5 mg capsuleIndications :Major neurocognitive disorder due to Alzheimer's disease, without behavioral disturbance (HC) Take 1 Capsule (1.5 mg) by mouth two times daily with meals. Prescribed by neurologist, Dr. Goins 12/30/19 23 Active diclofenac topical (VOLTAREN) 1 % gelIndications:Chr onic pain of both knees,Bilateral primary osteoarthritis of knee Apply 4 g topically to affected area(s) 4 times daily if needed (pain). 100 g 2 03/05/20 23 Active tacrolimus (PROTOPIC) 0.03 % ointmentIndication s:Eyelid dermatitis, allergic/contact Apply topically to affected area(s) two times daily. 30 g 03/21/20 24 Active buPROPion (WELLBUTRIN SR) 100 mg Sustained-Release tabletIndications: Major depressive disorder, recurrent episode, moderate (HC),Generalized anxiety disorder Take 1 Tablet (100 mg) by mouth two times daily. Mornings and afternoons to avoid worsening sleep 180 Tablet 3 12/31/19 25 Active mirtazapine (REMERON) 15 mg tabletIndications: Insomnia due to mental condition,Generali zed anxiety disorder Takes 0.5 tablets (7.5 mg) by mouth if needed for sleep at bedtime 90 Tablet 1 12/31/19 25 Active Dextromethorphan HBr 15 mgIndications:Amy r depressive disorder, recurrent episode, moderate (HC) Take 3 capsules (45 mg) by mouth 2 times daily with a bupropion tablet. 540 Capsule 12/31/19 25 Active memantine (NAMENDA) 5 mg tablet Take 5 mg by mouth once daily. ONE TABLET IN THE MORNING AND ONE TABLET IN THE EVENING 11/13/19 25 Active amLODIPine (NORVASC) 5 mg tabletIndications: Hypertension, unspecified type Take 1 Tablet (5 mg) by mouth once daily. 90 Tablet 3 02/04/20 25 Active cholecalciferol (VITAMIN D3) 1,000 unit tabletIndications: Osteopenia, unspecified location Take 1 Tablet (1,000 units) by mouth once daily. 90 Tablet 2 02/28/20 25 Active Hospital, Clinic, or Other Facility Administered Medication Ordered Dose Route Frequency Start Date End Date Status hylan G-F 20 48 mg injection (SYNVISC ONE)Indications:Bilateral primary osteoarthritis of knee,Chronic pain of both knees 48 mg IArtic ONE TIME 03/23/2025 03/23/2025 Ended hylan G-F 20 48 mg injection (SYNVISC ONE)Indications:Bilateral primary osteoarthritis of knee,Chronic pain of both knees 48 mg IArtic ONE TIME 03/23/2025 03/23/2025 Ended Active Problems Problem Noted Date Diagnosed Date [...] MD Implanting Provider: FLAKITO Cun[employer] EP Fire Hydrant Mechanic: Leonor Cordero MD DEVICE DATA Special Education Classroom Aide: MedLoogla Model: [id number] Serial #: [id number] Implant Date: 01/16/2021 HOME MONITOR Special Education Classroom Aide: Medtronic Model: [employer] Relay [id number] Serial #: [id number] Syncope and collapse 02/13/2021 Prediabetes 12/22/2019 Learning disorder 04/13/2018 Controlled substance agreement signed 11/14/2016 Overview (11/14/2016): Controlled substance agreement for Xanax on file and signed 11/14/2016. Designated pharmacy: [facility] [phone] Prescribing physician:Emma Babcock MD. Diagnosis: CARMEN. Maureen [...] 05/2006- seen by DR. Jamarcus guevara at [facility] Encounters Date Type Department Care Team Description 03/29/2025 10:00 AM MANAGER ANDROID Office Visit [facility] [address] [place] [address] Shaina Perry MD Hospital F/U ([facility], UTI, DOD 03/19/2025) 03/29/2025 Travel 03/23/2025 10:20 AM MANAGER ANDROID Office Visit [facility] [address] [place] [address] Charlie Yu MD Musculoskeletal Problem (Follow up bilateral knee pain ) 03/23/2025 Travel 03/20/2025 Travel 03/17/2025 Orders Only [facility] Scanner 1 scan: (1-Ord) DEDE, HEAD/BRAIN WO CONTRAST, 03/17/2025 02/27/2025 Refill [facility] [address] [place] [address] Shaina Perry MD Refill Request (Cholecalciferol) 02/03/2025 9:10 AM CDT Office Visit [facility] [address] [place] [address] Shaina Perry MD Medicare ANNUAL (subsequent) Visit (79 year old); Knee Pain/problem 02/02/2025 7:30 AM CDT Orders Only [facility] [address] [place] [address] Lab, [facility] 02/02/2025 Travel from Last 3 Months Immunizations Immunization Administration Dates Next Due COVID-19 VACCINE SPIKEVAX (M ODERNA 50MCG/0.5ML) 12YO+ PFS 03/29/2025,02/02/2024,03/05/2023 COVID-19 vaccine (Active MediaBio NTech 30mcg/0.3mL) PF, MDV 07/28/2020,07/28/2020,07/07/2020 Influenza A (H1N1), Inactivated 06/29/2009 Influenza A (H1N1), Inactiva libra (Age >=3 Years) 06/29/2009 Influenza Virus, Unspecified 03/20/2013 Influenza, High-dose Inactivated 019,03/22/2018,02/26/2016,03/24 Influenza, High-dose Quadriv alent Inactivated 02/27/2021,04/01/2020 Influenza, IIV3 (Age >=3 years) 03/20/2013,03/18,03/18/2007 Influenza, Inactivated AIIV4 (Age 65+ Years) Preserv Free 03/05/2023,01/23/2022 Influenza, Inactivated IIV3 (Age 65+ Years) Preserv Free 03/29/2025,02/02/2024,03/10/2017 Pneumococcal Poly,23-Valent (Pneumovax) 03/20/2013 Pneumococcal conj 13-Valent [...] Sex Assigned at Female 03/25/2021 11:12 PM MANAGER ANDROID Legal Sex Female 5:20 AM MANAGER ANDROID Gender Identity Female 03/25/2021 11:12 PM MANAGER ANDROID Sexual Orientation Straight 03/25/2021 11 :12 PM MANAGER ANDROID Occupation Industry Job Start Date Job End [...] Sign Reading Time Taken Comments Blood Pressure 131/85 03/29/2025 10:27 AM MANAGER ANDROID Pulse 87 03/29/2025 10:27 AM MANAGER ANDROID Temperature 36.7 C (98 F) 03/23/2025 10:15 AM MANAGER ANDROID Respiratory Rate 18 01/16/2021 1:30 PM CDT Oxygen Saturation 96% 03/29/2025 10:27 AM MANAGER ANDROID Inhaled Oxygen Concentration - - Weight 54.5 kg (120 lb 3.2 oz) 03/29/2025 10:27 AM MANAGER ANDROID Height 147 cm (4' 9.87) 02/03/2025 9:27 AM CDT Body Mass Index 25.23 02/03/2025 9:27 AM CDT Plan of Treatment Upcoming Encounters Date Type Department Care Team (Late st Contact Info) Description 04/10/2025 Cardiac Device Check [facility] [phone] 10/13/2025 9:00 AM CDT Office Visit [facility] [address] [place] [address] Charlie Yu MD [address] [facility] [place] [address] 12/18/2025 9:00 AM CDT Office Visit [facility] [address] [place] [address] Fareed Bethea MD [address] [place] [address] Health Maintenance Due Date Last Done Comments Zoster (shingles) series for age 50+ (3 of 3) 02/23/2020 12/29/2019, 11/15/2013 Tetanus booster 08/18/2022 08/18/2012, 06/18, 05/30/1999 BMI (ht and wt on same day) [...] RSV vaccine for adults or Completed 05/22/2024 Influenza Vaccine Completed 03/29/2025, , 03/05/2023, Additional history exists Hepatitis B series for 19+ Aged Out N o longer eligible based on patient's age to complete this topic Procedures Procedure Name Priority Date/Time Associated Diagnosis Comments SCAN-CT INTERPRETATION 12:00 AM CDT CBC WITH AUTO DIFFERENTIAL Routine 02/02/2025 7:21 [...] Recently Relevant to Health Maintenance Results * SCAN-CT INTERPRETATION (03/17/2025 12:00 AM CDT) Anatomical Region Laterality Modality Other us Scanner OTHER Final Result * CBC WITH AUTO DIFFERENTIAL (02/02/2025 7:21 AM CDT) WHITE BLOOD CELL COUNT 6.9 3.8 - 10.8 Thousand/u L 02/03/2025 4:41 AM CDT [facility] RED BLOOD CELL COUNT 4.53 3.80 [...] 7:21 AM CDT us Shaina Perry MD HEMATOLOGY Final Resul t [facility] [address] [place] [id number], * (ABNORMAL) HEMOGLOBIN A1C (02/02/2025 7:21 AM [...] Shaina Perry MD CHEMISTRY Final Resul t [facility] [address] [place] [address], [place] [phone] * (ABNORMAL) LIPID PANEL W REFLEX MEASURED LDL (02/02/2025 7:21 AM CDT) CHOLESTEROL, TOTAL 284(H) <200 mg/dL 02/03/2025 5:01 AM CDT [facility] TRIGLYCERIDES 169(H) <150 mg/dL 02/03/2025 5:01 AM CDT [facility] HDL CHOLESTEROL 74 > OR = 50 mg/dL 02/03/2025 5:01 AM CDT [facility] NON HDL CHOLESTEROL 210(H) <130 mg/dL (calc) 02/03/2025 5:01 AM CDT [facility] Comment: For patients with diabetes plus 1 major ASCVD risk factor, treating to a non-HDL-C goal of <100 mg/dL (LDL-C of <70 mg/dL) is considered a therapeutic option. CHOL/HDLC RATIO 3.8 <5.0 (calc) 02/03/2025 5:01 AM CDT [facility] LDL-CHOLESTEROL 178(H) mg/dL (calc) 02/03/2025 5:01 AM CDT [facility] Comment: Reference range: <100 Desirable range <100 mg/dL for primary prevention; <70 mg/dL for patients with CHD or diabetic patients with > or = 2 CHD risk factors. LDL-C is now calculated using the Arya-Carolynn calculation, which is a validated novel method providing better accuracy than the Friedewald equation in the estimation of LDL-C. Arya SS et al. FELICIANO. 2013;310(19): 6040-0051 (http://education.[employer].[address]/faq/RST640) Blood BLOOD SPECIMEN / Unknown [facility] / Unknown 02/02/2025 7:21 AM CDT 02/02/2025 7:21 AM CDT Shaina Perry MD CHEMISTRY Final Resul t [facility] [address] [address], [place] [phone] * (ABNORMAL) BASIC METABOLIC PANEL (02/02/2025 7:21 AM CDT) SODIUM 141 135 - 146 mmol/L 02/03/2025 5:01 AM CDT [facility] POTASSIUM 4.8 3.5 - 5.3 mmol/L 02/03/2025 5:01 AM CDT [facility] CARBON DIOXIDE 31 20 - 32 mmol/L 02/03/2025 5:01 AM CDT [facility] GLUCOSE 109(H) 65 - 99 mg/dL 02/03/2025 5:01 AM CDT [facility] Comment: Fasting reference interval For someone [...] - 110 mmol/L 02/03/2025 5:01 AM CDT [facility] Blood BLOOD SPECIMEN / Unknown [facility] / Unknown 02/02/2025 7:21 AM CDT 02/02/2025 7:21 AM CDT Shaina Perry MD CHEMISTRY Final Resul t [facility] [address] [place] [address], [place] [phone] * XR DXA BONE DENSITY 2 SITES AXIAL (09/17/2017 9:09 AM CDT) Anatomical Region Laterality Modality Spine, HIPS, HIPL, HIPR Other Sommer Long NP DEXA F inal Result from Last 3 Months or Most Recently Relevant to Health Maintenance Insurance MEDICARE PART A HB ONLY MEDICARE PART B HB ONLY BLUE [place] BLUE MR PB ONLY BLUE [place] BLUE ONLY BLUE [facility]UE [employer] [facility] [facility] Advance Directives Documents on File Type Date Recorded Patient Spinning Doffer Expl anation Power of Machine Stonecutter 09/20/2008 [facility] HELEN, POWER OF FIELD TAX AUDITOR, 09/20/2008 * Full Code (Latest Code Status [...] Comments Code Status Discussion: Discussed Care Teams Biometrics Head Relationship Specialty Start Date End Date Shaina Perry MD [address] [place] [address] PCP - General Family Practice 09/20/18 Jovan Guthrie [address] [place] [address] Tailor Helper 08/19/13 Emma Babcock MD [address] [place] [address] Psychiatry 09/04/15 Priscila Carter L Ac [address] [place] [id number] Design And Sales Consultant 09/04/16
[2025-04-03 23:18] LABS: Albumin* 4.2 g/dL (3.3-5.0); Chloride* 106 mmol/L (96-114); Sodium* 138 mmol/L (135-149)
[2025-04-03 23:19] LABS: Potassium* 4.4 mmol/L (3.6-5.1)
[2025-04-03 23:21] LABS: Alanine Aminotransferase* 21 U/L (4-35); Aspartate Amino Transferase* 31 U/L (12-35); Blood Urea Nitrogen* 30 mg/dL (7-30); Creatinine* 0.8 mg/dL (0.5-1.5); Estimated Glomerular Filt Rate 74 ml/min
[2025-04-03 23:22] LABS: Alkaline Phosphatase* 52 U/L (40-150); Anion Gap 6 mEq/L (7-15); Bilirubin Total* 0.6 mg/dL (0.1-1.5); Calcium* 9.8 mg/dL (8.4-10.6); Carbon Dioxide* 26 mmol/L (20-32); Glucose* 148 mg/dL (60-115); Total Protein* 7.6 g/dL (6.0-8.3)
[2025-04-03 23:38] LABS: PCR FLU A Negative PCR FLU A (Negative); PCR FLU B Negative PCR FLU B (Negative); PCR RSV Negative PCR RSV (Negative); Procalcitonin* 0.06 ng/mL (<0.50); SARS PCR* Negative SARS-CoV-2 (Negative)
== END 2025-04-04 00:56 | disposition home or self-care (01) ==
PROVIDERS: Emergency Provider Family Medicine; PCP Family Medicine
DX: N39.0 Urinary tract infection, site not specified (principal); F03.90 Unspecified dementia, unspecified severity, without behavioral disturbance, psychotic disturbance, mood disturbance, and anxiety
CPT/HCPCS: 36415; 80053; 81001; 83605; 84145; 85025; 86140; 87086; 87631; 96365; 99284; J1956; J7030